=== PATIENT | female | born 1960 | race Caucasian/White ===

== ENCOUNTER 2017-02-28 15:33 | Emergency (ER) | payer MEDICARE, OTHER ==
[2017-02-28] MEDS ORDERED: SODIUM CHLORIDE 0.9% 1,000 ML IV ONE (16:17)
[2017-02-28] MEDS ORDERED: MORPHINE SULFATE 4 MG/ML SYRINGE IVP STA (16:17)
[2017-02-28] MEDS ORDERED: ONDANSETRON 4 MG/2 ML VIAL IVP STA (16:17)
[2017-02-28 16:34] LABS: Basophils # (A) 0.1 k/uL (0-0.2); Basophils % (A) 1 %; CH 31.1; CHCM 35.1; Eosinophils # (A) 0.2 k/uL (0-0.7); Eosinophils % (A) 3 %; HCT 40.5 % (34.0-46.0); HDW 2.92; HGB 14.2 gm/dL (11.4-16.0); Luc # (Auto) 0.16; Luc % (Auto) 2; Lymphocytes # (A) 1.9 k/uL (1.0-4.8); Lymphocytes % (A) 25 %; MCH 31.2 pg (25.0-35.0); MCV 89.1 fL (80.0-100.0); Mean Platelet Volume 7.1; Monocytes # (A) 0.3 k/uL (0-1.0); Monocytes % (A) 5 %; Neutrophils % (A) 65 %; RBC 4.55 m/uL (3.80-5.40); RDW 13.6 % (11.5-15.5); WBC 7.7 k/uL (3.8-10.6); WBC (Perox) 7.71
[2017-02-28 16:48] LABS: ALT 22 U/L (9-52); AST 17 U/L (14-36); Alkaline Phosphatase 158 U/L (38-126); Anion Gap 10 mmol/L; Blood Urea Nitrogen 20 mg/dL (7-17); Calcium 9.2 mg/dL (8.4-10.2); Carbon Dioxide 24 mmol/L (22-30); Chloride 101 mmol/L (98-107); Glucose 343 mg/dL (74-99); Non-African American GFR(MDRD) >60 (>60 ml/min/1.73 sqM); Potassium 4.8 mmol/L (3.5-5.1); Sodium 135 mmol/L (137-145); Total Bilirubin 0.7 mg/dL (0.2-1.3); Total Protein 7.7 g/dL (6.3-8.2)
[2017-02-28 17:27] LABS: Appearance,Urine Cloudy (Clear); Bacteria,Urine Occasional /hpf; Bilirubin,Urine Negative (Negative); Glucose,Urine (UA) 4+ (Negative); Ketones,Urine Negative (Negative); Leukocyte Esterase,Urine Large (Negative); Nitrite,Urine Negative (Negative); PH, Urine 5.5 (5.0-8.0); Particle Count 3175; Protein,Urine Trace (Negative); RBC,Urine 9 /hpf (0-5); Specific Gravity,Urine 1.017 (1.001-1.035); Squamous Epithelial Cell,Urine 4 /hpf (0-4); UA Billing (MACRO vs. MICRO) MICRO; Urobilinogen,Urine <2.0 mg/dL (<2.0); WBC,Urine 21 /hpf (0-5)
--- NOTE | 2017-02-28 17:53 | CT ---
EXAMINATION TYPE: CT abdomen pelvis wo con DATE OF EXAM: 02/28/2017 COMPARISON: 06/12/2014 INDICATION: Patient complains of left flank pain. DLP: 1540.8 mGycm, Automated exposure control for dose reduction was used. CONTRAST: 0 mL of Omnipaque 300. Study performed without Oral Contrast TECHNIQUE: Axial images were obtained from above the diaphragm to the pubic rami in the axial plane a t 5 mm thick sections. Reconstructed images are reviewed on the computer in the coronal plane. FINDINGS: Limited CT sections are obtained the lung bases. Some minimal compressive atelectasis in the posteri or lateral right lung base is present.. CT ABDOMEN: Liver: Normal Spleen: Normal Pancreas: Normal Adrenal glands: Left adrenal gland is slightly prominent at 1.6 cm. Right adrenal gland appears withi n normal limits. Gallbladder: Surgically absent. Kidneys: No masses are evident. No hydronephrosis is present. No cysts are present. Perinephric st randing is present to mild degree bilaterally. Aorta: Normal Inferior vena cava: Normal. CT PELVIS: Loops of bowel within the abdomen and pelvis are normal. Appendix: Normal as visualized. Urinary bladder: Decompressed with limited evaluation. Genitourinary structures: Vaginal cuff region may has some minimal fullness. The uterus is not well v isualized. This could be a partial hysterectomy. Adnexal regions are unremarkable Osseous structures: No suspicious lytic or sclerotic lesions. IMPRESSIONS: 1. Mild perinephric stranding of uncertain etiology. Consider infection. 2. Mild posterior lateral compressive atelectasis right lung base. 3. Fullness of the left adrenal gland. 4. Mild diverticulosis without acute diverticulitis.
--- NOTE | 2017-02-28 17:57 | ED ---
Abdominal Pain HPI - General Chief Complaint: Abdominal Pain Stated Complaint: left abdominal and flank pain Source: patient Mode of arrival: ambulatory Limitations: no limitations - History of Present Illness Initial Comments: 56-year-old female with past medical history of asthma, COPD, DM, fibromyalgia, and IBS any for evaluation of left lower quadrant abdominal pain. She states that the pain started last night and describes it as a sharpness that radiates into her left lower back. She states that there is a gradual onset of pain and that is currently at a 9 out of 10. There is associated nausea without vomiting diarrhea constipation vaginal discharge hematuria dysuria. She tried taking an Aleve for symptom resolution and had no improvement. Nothing else seems to make her pain worse. She has never had these symptoms before. Previous abdominal surgeries include a total hysterectomy and a cholecystectomy. She has no history of kidney stones. - Related Data Home Medications Medication Instructions Recorded Confirmed Insulin Aspart Protam & Aspart 60 unit SQ BID 02/28/17 02/28/17 [NovoLOG MIX 70-30 Flexpen] Levothyroxine Sodium [Synthroid] 100 mcg PO DAILY 02/28/17 02/28/17 Lovastatin [Mevacor] 40 mg PO HS 02/28/17 02/28/17 traMADol HCL [Ultram] 50 mg PO Q12H PRN 02/28/17 02/28/17 Previous Rx's Medication Instructions Recorded HYDROcodone/APAP 5-325MG [[place] 1 - 2 tab PO Q6HR PRN #14 tab 02/28/17 5-325] Sulfamethox-Tmp 800-160Mg [Bactrim 1 tab PO Q12HR #20 tab 02/28/17 DS 800-160 mg] Allergies Allergy/AdvReac Type Severity Reaction Status Date / Time aspirin [From Percodan] Allergy Rash/Hives Verified 02/28/17 15:38 diphenhydramine Allergy Rash/Hives Verified 02/28/17 15:38 [From Benadryl] oxycodone [From Percodan] Allergy Rash/Hives Verified 02/28/17 15:38 prednisone AdvReac Unknown Verified 02/28/17 15:39 Review of Systems ROS Statement: Those systems with pertinent positive or pertinent negative responses have been documented in the HPI. ROS Other: All systems not noted in ROS Statement are negative. Constitutional: Denies: fever, chills Eyes: Denies: eye pain, eye discharge ENT: Denies: ear pain, throat pain Respiratory: Denies: cough, dyspnea Cardiovascular: Denies: chest pain, palpitations Endocrine: Denies: fatigue, polydipsia, polyuria Gastrointestinal: Reports: abdominal pain, nausea. Denies: vomiting Genitourinary: Denies: urgency, dysuria Musculoskeletal: Reports: back pain. Denies: arthralgia Skin: Denies: rash, lesions Neurological: Denies: headache, weakness Psychiatric: Denies: anxiety, depression Hematological/Lymphatic: Denies: easy bleeding, easy bruising Past Medical History Past Medical History: Asthma, COPD, Diabetes Mellitus, Fibromyalgia Additional Past Medical History / Comment(s): IBS History of Any Multi-Drug Resistant Organisms: None Reported Past Surgical History: Hysterectomy, Joint Replacement, Tonsillectomy Additional Past Surgical History / Comment(s): carpal tunnel, bilateral knees Past Psychological History: No Psychological Hx Reported Smoking Status: Former smoker Past Alcohol Use History: None Reported Past Drug Use History: None Reported General Exam Limitations: no limitations General appearance: alert, in no apparent distress Head exam: Present: atraumatic, normocephalic, normal inspection Eye exam: Present: normal appearance, PERRL, EOMI. Absent: scleral icterus, conjunctival injection, periorbital swelling ENT exam: Present: normal exam, mucous membranes moist Neck exam: Present: normal inspection. Absent: tenderness, meningismus, lymphadenopathy Respiratory exam: Present: normal lung sounds bilaterally. Absent: respiratory distress, wheezes, rales, rhonchi, stridor Cardiovascular Exam: Present: regular rate, normal rhythm, normal heart sounds. Absent: systolic murmur, diastolic murmur, rubs, gallop, clicks GI/Abdominal exam: Present: soft, tenderness. Absent: distended, guarding, rebound, rigid Rectal exam: Present: deferred Extremities exam: Present: normal inspection, full ROM, normal capillary refill. Absent: tenderness, pedal edema, joint swelling, calf tenderness Back exam: Present: full ROM, tenderness. Absent: CVA tenderness (R), CVA tenderness (L) Neurological exam: Present: alert, oriented X3, CN II-XII intact Psychiatric exam: Present: normal affect, normal mood Skin exam: Present: warm, dry, intact, normal color. Absent: rash Course Vital Signs 02/28/17 02/28/17 15:35 18:56 Temperature 97.7 F 97.8 F Pulse Rate 90 87 Respiratory 20 17 Rate Blood Pressure 179/98 157/87 O2 Sat by Pulse 96 96 Oximetry Medical Decision Making - Medical Decision Making 56-year-old female presenting for evaluation of left lower quadrant abdominal pain with some radiation to her left flank. She states this started last night and is reached 9 out of 10 without any relief with Aleve. She also has associated nausea. On physical examination she is tender to palpation on the left lower quadrant and in the left flank. Labs are significant for hyperglycemia and a urinary tract infection. The CT renal showed perinephric stranding around the kidney and given urinary tract infection she is likely having a pyelonephritis. She was given her first dose of antibiotic here in the ED and informed of all results. On physical examination she had improvement in her pain and she was informed that she would be discharged with instructions to follow-up with her primary care physician but to return to this facility if her symptoms should worsen or persist. The patient acknowledged an understanding of this information and agreed with this plan of care. - Lab Data Result diagrams: 02/28/17 15:54 02/28/17 15:54 Lab Results 02/28/17 02/28/17 02/28/17 Range/Units 15:54 15:54 15:54 WBC 7.7 (3.8-10.6) k/uL RBC 4.55 (3.80-5.40) m/uL Hgb 14.2 (11.4-16.0) gm/dL Hct 40.5 (34.0-46.0) % MCV 89.1 (80.0-100.0) fL MCH 31.2 (25.0-35.0) pg MCHC 35.0 (31.0-37.0) g/dL RDW 13.6 (11.5-15.5) % Plt Count 261 (150-450) k/uL Neutrophils % 65 % Lymphocytes % 25 % Monocytes % 5 % Eosinophils % 3 % Basophils % 1 % Neutrophils # 5.0 (1.3-7.7) k/uL Lymphocytes # 1.9 (1.0-4.8) k/uL Monocytes # 0.3 (0-1.0) k/uL Eosinophils # 0.2 (0-0.7) k/uL Basophils # 0.1 (0-0.2) k/uL Sodium 135 L (137-145) mmol/L Potassium 4.8 (3.5-5.1) mmol/L Chloride 101 (98-107) mmol/L Carbon Dioxide 24 (22-30) mmol/L Anion Gap 10 mmol/L BUN 20 H (7-17) mg/dL Creatinine 0.86 (0.52-1.04) mg/dL Est GFR (MDRD) Af Amer >60 (>60 ml/min/1.73 sqM) Est GFR (MDRD) Non-Af >60 (>60 ml/min/1.73 sqM) Glucose 343 H (74-99) mg/dL Calcium 9.2 (8.4-10.2) mg/dL Total Bilirubin 0.7 (0.2-1.3) mg/dL AST 17 (14-36) U/L ALT 22 (9-52) U/L Alkaline Phosphatase 158 H (38-126) U/L Total Protein 7.7 (6.3-8.2) g/dL Albumin 3.9 (3.5-5.0) g/dL Lipase 183 (23-300) U/L Urine Color Light Yellow Urine Appearance Cloudy H (Clear) Urine pH 5.5 (5.0-8.0) Ur Specific [place] 1.017 (1.001-1.035) Urine Protein Trace H (Negative) Urine Glucose (UA) 4+ H (Negative) Urine Ketones Negative (Negative) Urine Blood Trace H (Negative) Urine Nitrite Negative (Negative) Urine Bilirubin Negative (Negative) Urine Urobilinogen <2.0 (<2.0) mg/dL Ur Leukocyte Esterase Large H (Negative) Urine RBC 9 H (0-5) /hpf Urine WBC 21 H (0-5) /hpf Ur Squamous Epith Cells 4 (0-4) /hpf Urine Bacteria Occasional H (None) /hpf Disposition Clinical Impression: Pyelonephritis, Hyperglycemia Disposition: HOME SELF-CARE Condition: Stable Instructions: Kidney Infection (ED), Flank Pain (ED) Additional Instructions: Please use medication as discussed. Please follow up with family doctor if symptoms have not improved over the next two days. Please return to the emergency room if your symptoms increase or worsen or for any other concerns. Prescriptions: HYDROcodone/APAP 5-325MG [[place] 5-325] 1 - 2 tab PO Q6HR PRN #14 tab PRN Reason: Analgesia Sulfamethox-Tmp 800-160Mg [Bactrim DS 800-160 mg] 1 tab PO Q12HR #20 tab Referrals: Alejandro Torres DO [Primary Care Provider] - 1-2 days Time of Disposition: 18:35
[2017-02-28] MEDS ORDERED: SULFAMETHOX-TMP 800-160MG 1 EACH TAB PO STA (18:03)
[2017-02-28 18:57] VITALS: BP 157/87; PULSE 87; RESP 17; TEMP 97.8
== END 2017-02-28 18:56 | disposition home or self-care (01) ==
LOC: EC 15:33
DX: N12 Tubulo-interstitial nephritis, not specified as acute or chronic (principal); E11.65 Type 2 diabetes mellitus with hyperglycemia; Z87.891 Personal history of nicotine dependence; Z79.4 Long term (current) use of insulin; Z79.899 Other long term (current) drug therapy; Z88.6 Allergy status to analgesic agent; Z88.8 Allergy status to other drugs, medicaments and biological substances
CPT/HCPCS: 36415; 80053; 83690; 85025; 81001; 74176; 99284; 96374; 96375; 96361; J2270; J2405

== ENCOUNTER 2017-03-03 13:49 | Emergency (ER) | payer MEDICARE ==
[2017-03-03] MEDS ORDERED: SODIUM CHLORIDE 0.9% 1,000 ML IV ONE (15:59)
[2017-03-03] MEDS ORDERED: MORPHINE SULFATE 4 MG/ML SYRINGE IVP STA (16:00)
--- NOTE | 2017-03-03 16:03 | ED ---
Abdominal Pain HPI - General Chief Complaint: Abdominal Pain Stated Complaint: kidney infection/pain-revisit Time Seen by Provider: 03/03/17 15:18 Source: patient, RN notes reviewed Mode of arrival: ambulatory Limitations: no limitations - History of Present Illness Initial Comments: Patient is 56 female presents emergency room for evaluation of left-sided flank pain and abdominal pain. Patient states she was here on Monday for the same issue. Patient states she was told she had a urinary tract infection and possible kidney infection. She states she was sent home with Bactrim and [place]. Patient states she has been taking Bactrim and feels like it is not helping. Patient states she's having worse pain today than she did on Monday. Patient states been taking [place] with no relief of symptoms. Patient states a CT was performed last time she was here and it did show that her left kidney was inflamed. Patient denies history of kidney stones. Patient denies any pain or burning during urination. Patient denies fevers or chills. Patient denies chest pain or shortness of breath. Patient states she is nauseous but denies any vomiting. - Related Data Home Medications Medication Instructions Recorded Confirmed Insulin Aspart Protam & Aspart 60 unit SQ BID 02/28/17 03/03/17 [NovoLOG MIX 70-30 Flexpen] Levothyroxine Sodium [Synthroid] 100 mcg PO DAILY 02/28/17 03/03/17 Lovastatin [Mevacor] 40 mg PO HS 02/28/17 03/03/17 HYDROcodone/APAP 5-325MG [[place] 1 tab PO Q6HR PRN 03/03/17 03/03/17 5-325] HYDROcodone/APAP 5-325MG [[place] 2 tab PO Q6HR PRN 03/03/17 03/03/17 5-325] Previous Rx's Medication Instructions Recorded Sulfamethox-Tmp 800-160Mg [Bactrim 1 tab PO Q12HR #20 tab 02/28/17 DS 800-160 mg] Acetaminophen with Codeine 1 tab PO Q6HR PRN #12 tab 03/03/17 [Tylenol w/codeine #3] Allergies Allergy/AdvReac Type Severity Reaction Status Date / Time diphenhydramine Allergy Rash/Hives Verified 03/03/17 15:58 [From Benadryl] oxycodone [From Percodan] Allergy Rash/Hives Verified 03/03/17 15:58 prednisone AdvReac Increased Verified 03/03/17 15:58 Blood Sugar Review of Systems ROS Statement: Those systems with pertinent positive or pertinent negative responses have been documented in the HPI. ROS Other: All systems not noted in ROS Statement are negative. Past Medical History Past Medical History: Asthma, COPD, Diabetes Mellitus, Fibromyalgia Additional Past Medical History / Comment(s): IBS History of Any Multi-Drug Resistant Organisms: None Reported Past Surgical History: Hysterectomy, Joint Replacement, Tonsillectomy Additional Past Surgical History / Comment(s): carpal tunnel, bilateral knees Past Psychological History: No Psychological Hx Reported Smoking Status: Former smoker Past Alcohol Use History: None Reported Past Drug Use History: None Reported General Exam - General Exam Comments Initial Comments: sitting in exam room, no acute distress. Limitations: no limitations General appearance: alert, in no apparent distress Head exam: Present: atraumatic, normocephalic, normal inspection Eye exam: Present: normal appearance ENT exam: Present: normal exam Neck exam: Present: normal inspection Respiratory exam: Present: normal lung sounds bilaterally. Absent: respiratory distress Cardiovascular Exam: Present: regular rate, normal rhythm, normal heart sounds GI/Abdominal exam: Present: soft, normal bowel sounds. Absent: distended, tenderness, guarding, rebound, rigid Extremities exam: Present: normal inspection Back exam: Present: normal inspection. Absent: CVA tenderness (R), CVA tenderness (L) Neurological exam: Present: alert, oriented X3, CN II-XII intact, normal gait Psychiatric exam: Present: normal affect, normal mood Skin exam: Present: warm, dry, intact, normal color. Absent: rash Course Vital Signs 03/03/17 03/03/17 14:11 17:50 Temperature 97.8 F 98.0 F Pulse Rate 101 H 80 Respiratory 20 16 Rate Blood Pressure 178/81 149/78 O2 Sat by Pulse 96 98 Oximetry Medical Decision Making - Medical Decision Making patient is a 56-year-old female presents emergency room for evaluation of abdominal pain and flank pain. As compared to last visit. Urinalysis improved from last visit. Advised patient to continue taking Bactrim. Patient states she understands everything that was discussed with her. Return parameters discussed. Case discussed Dr. Jaimes. - Lab Data Result diagrams: 03/03/17 15:53 03/03/17 15:53 Lab Results 03/03/17 03/03/17 03/03/17 Range/Units 15:53 15:53 15:53 WBC 7.0 (3.8-10.6) k/uL RBC 4.26 (3.80-5.40) m/uL Hgb 13.3 (11.4-16.0) gm/dL Hct 39.4 (34.0-46.0) % MCV 92.7 (80.0-100.0) fL MCH 31.3 (25.0-35.0) pg MCHC 33.8 (31.0-37.0) g/dL RDW 14.1 (11.5-15.5) % Plt Count 254 (150-450) k/uL Neutrophils % 62 % Lymphocytes % 26 % Monocytes % 6 % Eosinophils % 3 % Basophils % 1 % Neutrophils # 4.4 (1.3-7.7) k/uL Lymphocytes # 1.8 (1.0-4.8) k/uL Monocytes # 0.4 (0-1.0) k/uL Eosinophils # 0.2 (0-0.7) k/uL Basophils # 0.1 (0-0.2) k/uL Sodium 138 (137-145) mmol/L Potassium 4.8 (3.5-5.1) mmol/L Chloride 104 (98-107) mmol/L Carbon Dioxide 26 (22-30) mmol/L Anion Gap 8 mmol/L BUN 19 H (7-17) mg/dL Creatinine 1.00 (0.52-1.04) mg/dL Est GFR (MDRD) Af Amer >60 (>60 ml/min/1.73 sqM) Est GFR (MDRD) Non-Af 58 (>60 ml/min/1.73 sqM) Glucose 245 H (74-99) mg/dL Calcium 9.4 (8.4-10.2) mg/dL Total Bilirubin 0.3 (0.2-1.3) mg/dL AST 17 (14-36) U/L ALT 26 (9-52) U/L Alkaline Phosphatase 131 H (38-126) U/L Total Protein 7.1 (6.3-8.2) g/dL Albumin 3.8 (3.5-5.0) g/dL Urine Color Light Yellow Urine Appearance Cloudy H (Clear) Urine pH 6.0 (5.0-8.0) Ur Specific [place] 1.014 (1.001-1.035) Urine Protein Trace H (Negative) Urine Glucose (UA) 4+ H (Negative) Urine Ketones Negative (Negative) Urine Blood Negative (Negative) Urine Nitrite Negative (Negative) Urine Bilirubin Negative (Negative) Urine Urobilinogen <2.0 (<2.0) mg/dL Ur Leukocyte Esterase Large H (Negative) Urine RBC 3 (0-5) /hpf Urine WBC 12 H (0-5) /hpf Ur Squamous Epith Cells 11 H (0-4) /hpf Urine Bacteria Many H (None) /hpf Urine Mucus Rare H (None) /hpf Urine Yeast (Budding) Occasional H (None) /hpf Disposition Clinical Impression: Urinary tract infection Disposition: HOME SELF-CARE Condition: Good Instructions: Urinary Tract Infection in Women (ED) Additional Instructions: Continue taking antibiotics as directed. Drink plenty of water. Take ibuprofen as needed for pain. Take Tylenol 3 as needed for severe pain. Please follow up with primary care provider in 1-2 days. If any new symptom arises or symptoms worsen, return to ER as soon as possible. Prescriptions: Acetaminophen with Codeine [Tylenol w/codeine #3] 1 tab PO Q6HR PRN #12 tab PRN Reason: Pain Referrals: Alejandro Torres DO [Primary Care Provider] - 1-2 days Time of Disposition: 17:35
[2017-03-03 16:13] LABS: Basophils # (A) 0.1 k/uL (0-0.2); Basophils % (A) 1 %; CH 31.3; Eosinophils # (A) 0.2 k/uL (0-0.7); Eosinophils % (A) 3 %; HCT 39.4 % (34.0-46.0); HDW 2.69; HGB 13.3 gm/dL (11.4-16.0); Luc # (Auto) 0.17; Luc % (Auto) 3; Lymphocytes # (A) 1.8 k/uL (1.0-4.8); Lymphocytes % (A) 26 %; MCH 31.3 pg (25.0-35.0); MCHC 33.8 g/dL (31.0-37.0); MCV 92.7 fL (80.0-100.0); Mean Platelet Volume 7.2; Monocytes # (A) 0.4 k/uL (0-1.0); Monocytes % (A) 6 %; Neutrophils # (A) 4.4 k/uL (1.3-7.7); Neutrophils % (A) 62 %; RBC 4.26 m/uL (3.80-5.40); RDW 14.1 % (11.5-15.5); WBC (Perox) 6.96
[2017-03-03 16:26] LABS: ALT 26 U/L (9-52); AST 17 U/L (14-36); Alkaline Phosphatase 131 U/L (38-126); Anion Gap 8 mmol/L; Blood Urea Nitrogen 19 mg/dL (7-17); Calcium 9.4 mg/dL (8.4-10.2); Carbon Dioxide 26 mmol/L (22-30); Chloride 104 mmol/L (98-107); Glucose 245 mg/dL (74-99); Non-African American GFR(MDRD) 58 (>60 ml/min/1.73 sqM); Potassium 4.8 mmol/L (3.5-5.1); Sodium 138 mmol/L (137-145); Total Bilirubin 0.3 mg/dL (0.2-1.3); Total Protein 7.1 g/dL (6.3-8.2)
[2017-03-03 16:30] LABS: Appearance,Urine Cloudy (Clear); Bacteria,Urine Many /hpf; Bilirubin,Urine Negative (Negative); Glucose,Urine (UA) 4+ (Negative); Ketones,Urine Negative (Negative); Leukocyte Esterase,Urine Large (Negative); Mucus,Urine Rare /hpf; Nitrite,Urine Negative (Negative); Particle Count 4070; Protein,Urine Trace (Negative); RBC,Urine 3 /hpf (0-5); Specific Gravity,Urine 1.014 (1.001-1.035); Squamous Epithelial Cell,Urine 11 /hpf (0-4); UA Billing (MACRO vs. MICRO) MICRO; Urobilinogen,Urine <2.0 mg/dL (<2.0); WBC,Urine 12 /hpf (0-5)
[2017-03-03] MEDS ORDERED: KETOROLAC 30 MG/ML 1 ML VIAL IVP STA (17:04)
[2017-03-03 17:51] VITALS: BP 149/78; PULSE 80; RESP 16; TEMP 98
== END 2017-03-03 17:52 | disposition home or self-care (01) ==
LOC: EC 13:49
DX: N39.0 Urinary tract infection, site not specified (principal); E11.9 Type 2 diabetes mellitus without complications; Z87.891 Personal history of nicotine dependence; Z79.4 Long term (current) use of insulin; Z79.899 Other long term (current) drug therapy; Z88.5 Allergy status to narcotic agent; Z88.8 Allergy status to other drugs, medicaments and biological substances
CPT/HCPCS: 36415; 80053; 85025; 81001; 99284; 96374; 96375; 96361; J2270; J1885

== ENCOUNTER → 2017-03-20 | Outpatient (CLI) | payer MEDICARE ==
[2017-03-21 15:12] LABS: Alternaria alternata IgE <0.35 kU/L (<0.35); Asperg. fumagatus IgE <0.35 kU/L (<0.35); Asperg. fumagatus IgE Class CLASS 0; Birch(Com.Silvr) IgE Class CLASS 0; Cat Epith & Dander IgE <0.35 kU/L (<0.35); Cat Epith & Dander IgE Class CLASS 0; Clad herbarum IgE <0.35 kU/L (<0.35); Clad herbarum IgE Class CLASS 0; Common Ragweed IgE Class CLASS 0; Dermato. Pteronyssinus Class CLASS 0; Dermato. Pteronyssinus IgE <0.35 kU/L (<0.35); Dermato. farinae IgE <0.35 kU/L (<0.35); Dermato. farinae IgE Class CLASS 0; IgE (Allergen) 3.9 IU/mL (<114.0); Maple (Box Elder) IgE <0.35 kU/L (<0.35); Maple (Box Elder) IgE Class CLASS 0; Mountain Cedar IgE <0.35 kU/L (<0.35); Mountain Cedar IgE Class CLASS 0; Mouse Urine IgE Class CLASS 0; Mouse Urine Proteins,IgE <0.35 kU/L (<0.35); Mulberry IgE Class CLASS 0; Nettle IgE <0.35 kU/L (<0.35); Nettle IgE Class CLASS 0; Oak IgE <0.35 kU/L (<0.35); Penicillium notatum IgE Class CLASS 0; Rough Marshelder IgE <0.35 kU/L (<0.35); Rough Marshelder IgE Class CLASS 0; Timothy Grass IgE <0.35 kU/L (<0.35); Timothy Grass IgE Class CLASS 0; White Ash IgE Class CLASS 0
[2017-03-28 18:28] LABS: Alternaria tenius IgG 5.4 mcg/mL (< 13.6); Saccaharomospora viridis Not detected (Not detected); Saccaharopoly. rectivirgula Not detected (Not detected)
== END | disposition home or self-care (01) ==
LOC: LABWHC1 10:45
PROVIDERS: ATTEND Internal Medicine Pulmonary Disease
DX: J45.909 Unspecified asthma, uncomplicated (principal); R06.02 Shortness of breath
CPT/HCPCS: 36415; 82103; 82104; 82785; 86001; 86003; 86606; 86609

== ENCOUNTER 2017-05-17 17:48 | Observation (INO) | payer MEDICARE ==
[2017-05-17] MEDS ORDERED: SODIUM CHLORIDE 0.9% 1,000 ML IV STA (18:40)
--- NOTE | 2017-05-17 19:07 | XR ---
EXAMINATION TYPE: XR chest 2V DATE OF EXAM: 05/17/2017 COMPARISON: 08/12/2009 HISTORY: Dizziness TECHNIQUE: Frontal and lateral views of the chest are obtained. FINDINGS: There is no heart failure nor confluent pneumonic infiltrate. There are no hilar masses. C ostophrenic angles are clear. There is spurring in the thoracic spine. IMPRESSION: No active cardiopulmonary disease. No change.
[2017-05-17 19:12] LABS: Basophils # (A) 0.1 k/uL (0-0.2); Basophils % (A) 1 %; CH 30.6; CHCM 33.8; Eosinophils # (A) 0.2 k/uL (0-0.7); Eosinophils % (A) 3 %; HCT 40.8 % (34.0-46.0); HDW 2.79; HGB 14.2 gm/dL (11.4-16.0); Luc # (Auto) 0.22; Luc % (Auto) 3; Lymphocytes # (A) 2.3 k/uL (1.0-4.8); Lymphocytes % (A) 29 %; MCH 31.8 pg (25.0-35.0); MCHC 34.9 g/dL (31.0-37.0); MCV 91.2 fL (80.0-100.0); Mean Platelet Volume 7.6; Monocytes # (A) 0.4 k/uL (0-1.0); Monocytes % (A) 6 %; Neutrophils # (A) 4.6 k/uL (1.3-7.7); Neutrophils % (A) 59 %; RBC 4.48 m/uL (3.80-5.40); RDW 13.1 % (11.5-15.5); WBC 7.8 k/uL (3.8-10.6); WBC (Perox) 7.46
[2017-05-17 19:15] LABS: Amorphous Sediment,Urine Rare /hpf; Appearance,Urine Clear (Clear); Bacteria,Urine Moderate /hpf; Bilirubin,Urine Negative (Negative); Glucose,Urine (UA) 4+ (Negative); Ketones,Urine Negative (Negative); Leukocyte Esterase,Urine Moderate (Negative); Nitrite,Urine Negative (Negative); Particle Count 1786; Protein,Urine Negative (Negative); RBC,Urine 2 /hpf (0-5); Specific Gravity,Urine 1.017 (1.001-1.035); Squamous Epithelial Cell,Urine 4 /hpf (0-4); UA Billing (MACRO vs. MICRO) MICRO; Urobilinogen,Urine <2.0 mg/dL (<2.0); WBC,Urine 31 /hpf (0-5)
[2017-05-17 19:19] LABS: ALT 34 U/L (9-52); AST 18 U/L (14-36); Alkaline Phosphatase 146 U/L (38-126); Anion Gap 13 mmol/L; Blood Urea Nitrogen 22 mg/dL (7-17); Carbon Dioxide 25 mmol/L (22-30); Chloride 92 mmol/L (98-107); Magnesium 1.7 mg/dL (1.6-2.3); Non-African American GFR(MDRD) >60 (>60 ml/min/1.73 sqM); Potassium 4.5 mmol/L (3.5-5.1); Sodium 130 mmol/L (137-145); Total Bilirubin 0.4 mg/dL (0.2-1.3); Total Protein 7.3 g/dL (6.3-8.2)
[2017-05-17 19:23] LABS: Glucose 615 mg/dL (74-99)
[2017-05-17] MEDS ORDERED: SODIUM CHLORIDE 0.9% 1,000 ML IV ONE (19:49)
[2017-05-17] MEDS ORDERED: INSULIN REGULAR 100 UNIT/ML VIAL IV ONE (20:04)
[2017-05-17] MEDS: SODIUM CHLORIDE 0.9% 1,000 ML IV SCH (20:26)
[2017-05-17] MEDS ORDERED: ONDANSETRON 4 MG/2 ML VIAL IVP PRN (20:27)
[2017-05-17] MEDS ORDERED: NALOXONE 0.4 MG/ML 1 ML VIAL IV PRN (20:27)
[2017-05-17] MEDS ORDERED: ACETAMINOPHEN TAB 325 MG TAB PO PRN (20:27)
--- NOTE | 2017-05-17 20:47 | ED ---
General Adult HPI - General Chief complaint: Dizziness Stated complaint: Heart racing-chest pain Time Seen by Provider: 05/17/17 18:02 Source: patient, RN notes reviewed Mode of arrival: ambulatory Limitations: no limitations - History of Present Illness Initial comments: 57-year-old female with history of diabetes, and asthma COPD presents with chief complaint of palpitations and lightheadedness. Patient denies any symptoms of vertigo. States her palpitations came at rest. She is not currently experiencing these symptoms. Denies any chest pain. Denies nausea vomiting states she did have some diarrhea but has a history of IBS this is not abnormal. Also complains of dysuria. Denies shortness of breath. Palpitations are described as a racing heart. - Related Data Home Medications Medication Instructions Recorded Confirmed Insulin Aspart Protam & Aspart 60 unit SQ BID 02/28/17 05/17/17 [NovoLOG MIX 70-30 Flexpen] Levothyroxine Sodium [Synthroid] 100 mcg PO QAM 02/28/17 05/17/17 Lovastatin [Mevacor] 40 mg PO HS 02/28/17 05/17/17 Albuterol Inhaler [Ventolin Hfa 1 - 2 puff INHALATION RT-QID PRN 05/17/17 Inhaler] Montelukast [Singulair] 10 mg PO HS 05/17/17 05/17/17 traMADol HCL [Ultram] 50 mg PO BID PRN 05/17/17 05/17/17 Allergies Allergy/AdvReac Type Severity Reaction Status Date / Time adhesive tape Allergy Rash/Hives Verified 05/17/17 18:54 diphenhydramine Allergy Rash/Hives Verified 05/17/17 18:09 [From Benadryl] latex Allergy Rash/Hives Verified 05/17/17 18:54 oxycodone [From Percodan] AdvReac Altered Verified 05/17/17 18:54 Mental Status prednisone AdvReac Increased Verified 05/17/17 18:09 Blood Sugar Review of Systems ROS Statement: Those systems with pertinent positive or pertinent negative responses have been documented in the HPI. ROS Other: All systems not noted in ROS Statement are negative. Past Medical History Past Medical History: Asthma, COPD, Diabetes Mellitus, Fibromyalgia Additional Past Medical History / Comment(s): IBS History of Any Multi-Drug Resistant Organisms: None Reported Past Surgical History: Hysterectomy, Joint Replacement, Tonsillectomy Additional Past Surgical History / Comment(s): carpal tunnel, bilateral knees Past Psychological History: No Psychological Hx Reported Smoking Status: Former smoker Past Alcohol Use History: None Reported Past Drug Use History: None Reported General Exam Limitations: no limitations General appearance: alert, in no apparent distress Head exam: Present: atraumatic, normocephalic Eye exam: Present: normal appearance, PERRL. Absent: scleral icterus ENT exam: Present: normal exam, mucous membranes dry Neck exam: Present: normal inspection. Absent: tenderness, meningismus Respiratory exam: Present: normal lung sounds bilaterally. Absent: respiratory distress, wheezes Cardiovascular Exam: Present: regular rate, normal rhythm GI/Abdominal exam: Present: soft. Absent: distended, tenderness Extremities exam: Present: normal inspection, normal capillary refill. Absent: pedal edema Back exam: Present: normal inspection. Absent: CVA tenderness (R), CVA tenderness (L) Neurological exam: Present: alert, oriented X3, CN II-XII intact. Absent: motor sensory deficit Psychiatric exam: Present: normal affect, normal mood Skin exam: Present: warm, dry. Absent: cyanosis, diaphoretic Course Vital Signs 05/17/17 05/17/17 18:09 18:24 Temperature 98.0 F Pulse Rate 100 Pulse Rate [ 95 Mycologist ] Respiratory 18 Rate Blood Pressure 187/72 O2 Sat by Pulse 96 Oximetry - Reevaluation(s) Reevaluation #1: 05/17/17 20:44 Patient is to chest pain or palpitations wound emergency department. EKG Findings - EKG Comments: EKG Findings:: EKG shows normal sinus rhythm with a ventricular rate 97, P1 56, QRS duration 82, QTC 459, no ST segment elevation or depression. Medical Decision Making - Medical Decision Making 57-year-old female presenting with lightheadedness and palpitations. Patient also complains of dysuria and is found to have a urinary tract infection with white blood cell count 31. Laboratory studies reveal a glucose of 615. Patient does admit to not checking her glucose on a regular basis. Mild lactic acidosis consistent with dehydration, hyponatremia at 1:30 which is likely pseudohyponatremia secondary to glucose. EKG is nonischemic, chest x-ray shows no acute findings. Patient is given IV hydration and IV insulin emergency department. She will be admitted for further IV hydration, close glucose monitoring, and telemetry given her palpitations. Diagnosis: Hyperglycemia, pseudohyponatremia, lactic acidosis, UTI, palpitations. - Lab Data Result diagrams: 05/17/17 18:24 05/17/17 18:24 Lab Results 05/17/17 05/17/17 05/17/17 Range/Units 18:24 18:24 18:24 WBC 7.8 (3.8-10.6) k/uL RBC 4.48 (3.80-5.40) m/uL Hgb 14.2 (11.4-16.0) gm/dL Hct 40.8 (34.0-46.0) % MCV 91.2 (80.0-100.0) fL MCH 31.8 (25.0-35.0) pg MCHC 34.9 (31.0-37.0) g/dL RDW 13.1 (11.5-15.5) % Plt Count 266 (150-450) k/uL Neutrophils % 59 % Lymphocytes % 29 % Monocytes % 6 % Eosinophils % 3 % Basophils % 1 % Neutrophils # 4.6 (1.3-7.7) k/uL Lymphocytes # 2.3 (1.0-4.8) k/uL Monocytes # 0.4 (0-1.0) k/uL Eosinophils # 0.2 (0-0.7) k/uL Basophils # 0.1 (0-0.2) k/uL Sodium 130 L (137-145) mmol/L Potassium 4.5 (3.5-5.1) mmol/L Chloride 92 L (98-107) mmol/L Carbon Dioxide 25 (22-30) mmol/L Anion Gap 13 mmol/L BUN 22 H (7-17) mg/dL Creatinine 0.89 (0.52-1.04) mg/dL Est GFR (MDRD) Af Amer >60 (>60 ml/min/1.73 sqM) Est GFR (MDRD) Non-Af >60 (>60 ml/min/1.73 sqM) Glucose 615 H* (74-99) mg/dL Plasma Lactic Acid [place] (0.7-2.0) mmol/L Calcium 9.0 (8.4-10.2) mg/dL Magnesium 1.7 (1.6-2.3) mg/dL Total Bilirubin 0.4 (0.2-1.3) mg/dL AST 18 (14-36) U/L ALT 34 (9-52) U/L Alkaline Phosphatase 146 H (38-126) U/L Troponin I <0.012 (0.000-0.034) ng/mL Total Protein 7.3 (6.3-8.2) g/dL Albumin 3.8 (3.5-5.0) g/dL Urine Color Urine Appearance (Clear) Urine pH (5.0-8.0) Ur Specific [place] (1.001-1.035) Urine Protein (Negative) Urine Glucose (UA) (Negative) Urine Ketones (Negative) Urine Blood (Negative) Urine Nitrite (Negative) Urine Bilirubin (Negative) Urine Urobilinogen (<2.0) mg/dL Ur Leukocyte Esterase (Negative) Urine RBC (0-5) /hpf Urine WBC (0-5) /hpf Ur Squamous Epith Cells (0-4) /hpf Amorphous Sediment (None) /hpf Urine Bacteria (None) /hpf Urine Yeast (Budding) (None) /hpf 05/17/17 05/17/17 Range/Units 18:24 20:03 WBC (3.8-10.6) k/uL RBC (3.80-5.40) m/uL Hgb (11.4-16.0) gm/dL Hct (34.0-46.0) % MCV (80.0-100.0) fL MCH (25.0-35.0) pg MCHC (31.0-37.0) g/dL RDW (11.5-15.5) % Plt Count (150-450) k/uL Neutrophils % % Lymphocytes % % Monocytes % % Eosinophils % % Basophils % % Neutrophils # (1.3-7.7) k/uL Lymphocytes # (1.0-4.8) k/uL Monocytes # (0-1.0) k/uL Eosinophils # (0-0.7) k/uL Basophils # (0-0.2) k/uL Sodium (137-145) mmol/L Potassium (3.5-5.1) mmol/L Chloride (98-107) mmol/L Carbon Dioxide (22-30) mmol/L Anion Gap mmol/L BUN (7-17) mg/dL Creatinine (0.52-1.04) mg/dL Est GFR (MDRD) Af Amer (>60 ml/min/1.73 sqM) Est GFR (MDRD) Non-Af (>60 ml/min/1.73 sqM) Glucose (74-99) mg/dL Plasma Lactic Acid [place] 2.3 H* (0.7-2.0) mmol/L Calcium (8.4-10.2) mg/dL Magnesium (1.6-2.3) mg/dL Total Bilirubin (0.2-1.3) mg/dL AST (14-36) U/L ALT (9-52) U/L Alkaline Phosphatase (38-126) U/L Troponin I (0.000-0.034) ng/mL Total Protein (6.3-8.2) g/dL Albumin (3.5-5.0) g/dL Urine Color Colorless Urine Appearance Clear (Clear) Urine pH 7.0 (5.0-8.0) Ur Specific [place] 1.017 (1.001-1.035) Urine Protein Negative (Negative) Urine Glucose (UA) 4+ H (Negative) Urine Ketones Negative (Negative) Urine Blood Negative (Negative) Urine Nitrite Negative (Negative) Urine Bilirubin Negative (Negative) Urine Urobilinogen <2.0 (<2.0) mg/dL Ur Leukocyte Esterase Moderate H (Negative) Urine RBC 2 (0-5) /hpf Urine WBC 31 H (0-5) /hpf Ur Squamous Epith Cells 4 (0-4) /hpf Amorphous Sediment Rare H (None) /hpf Urine Bacteria Moderate H (None) /hpf Urine Yeast (Budding) Rare H (None) /hpf Disposition Clinical Impression: Dehydration, Hyperglycemia Disposition: ADMITTED IP TO THIS [facility] Condition: Stable Referrals: Alejandro Torres DO [Primary Care Provider] - 1-2 days Decision to Admit Reason: Admit from EC Decision Date: 05/17/17 Decision Time: 20:15
[2017-05-17 20:55] LABS: Glucose,Whole Blood 344 mg/dL (75-99)
[2017-05-17] MEDS ORDERED: ALBUTEROL NEBULIZED 2.5 MG/3 ML INHALATION PRN (23:10)
[2017-05-17] MEDS: traMADol 50 MG TAB PO PRN (23:45)
[2017-05-17] MEDS: INSULN ASP PRT/INSULIN ASPART 100 UNIT/ML 10 ML VIAL SQ SCH (23:45)
[2017-05-17] MEDS: MONTELUKAST 10 MG TAB PO SCH (23:45)
[2017-05-18 00:29] VITALS: BMI 39.9
[2017-05-18 04:06] LABS: Glucose,Whole Blood 192 mg/dL (75-99)
[2017-05-18 06:54] LABS: Glucose,Whole Blood 245 mg/dL (75-99)
[2017-05-18 07:28] LABS: Basophils # (A) 0.1 k/uL (0-0.2); Basophils % (A) 1 %; CH 31.8; CHCM 34.1; Eosinophils # (A) 0.3 k/uL (0-0.7); Eosinophils % (A) 5 %; HCT 39.3 % (34.0-46.0); Luc # (Auto) 0.17; Luc % (Auto) 3; Lymphocytes # (A) 2.3 k/uL (1.0-4.8); Lymphocytes % (A) 35 %; MCH 30.9 pg (25.0-35.0); MCHC 32.9 g/dL (31.0-37.0); MCV 93.7 fL (80.0-100.0); Mean Platelet Volume 7.9; Monocytes # (A) 0.4 k/uL (0-1.0); Monocytes % (A) 6 %; Neutrophils # (A) 3.4 k/uL (1.3-7.7); Neutrophils % (A) 51 %; RDW 13.7 % (11.5-15.5); WBC 6.6 k/uL (3.8-10.6); WBC (Perox) 6.03
[2017-05-18 07:38] LABS: ALT 28 U/L (9-52); AST 13 U/L (14-36); Alkaline Phosphatase 120 U/L (38-126); Anion Gap 6 mmol/L; Blood Urea Nitrogen 16 mg/dL (7-17); Calcium 8.6 mg/dL (8.4-10.2); Carbon Dioxide 27 mmol/L (22-30); Chloride 104 mmol/L (98-107); Glucose 232 mg/dL (74-99); Non-African American GFR(MDRD) >60 (>60 ml/min/1.73 sqM); Potassium 4.3 mmol/L (3.5-5.1); Sodium 137 mmol/L (137-145); Total Bilirubin 0.4 mg/dL (0.2-1.3); Total Protein 6.3 g/dL (6.3-8.2)
[2017-05-18] MEDS: INSULN ASP PRT/INSULIN ASPART 100 UNIT/ML 10 ML VIAL SQ SCH ×2 (08:40→22:11)
[2017-05-18] MEDS: LEVOTHYROXINE 100 MCG TAB PO SCH (08:41)
[2017-05-18] MEDS: traMADol 50 MG TAB PO PRN (10:26)
[2017-05-18 12:05] LABS: Glucose,Whole Blood 260 mg/dL (75-99)
[2017-05-18 12:06] LABS: Hemoglobin A1C 12.6 % (4.2-6.1)
[2017-05-18 16:59] LABS: Glucose,Whole Blood 218 mg/dL (75-99)
[2017-05-18 20:23] LABS: Glucose,Whole Blood 240 mg/dL (75-99)
[2017-05-18] MEDS ORDERED: ATORVASTATIN 10 MG TAB PO SCH (21:00)
[2017-05-18] MEDS: MONTELUKAST 10 MG TAB PO SCH (22:12)
[2017-05-18 23:18] VITALS: RESP 18
[2017-05-18] MEDS: SODIUM CHLORIDE 0.9% 1,000 ML IV SCH ×2 (23:31→23:33)
[2017-05-19 02:26] LABS: Glucose,Whole Blood 184 mg/dL (75-99)
[2017-05-19] MEDS: LEVOTHYROXINE 100 MCG TAB PO SCH (06:47)
[2017-05-19 06:58] LABS: Glucose,Whole Blood 153 mg/dL (75-99)
[2017-05-19] MEDS: INSULN ASP PRT/INSULIN ASPART 100 UNIT/ML 10 ML VIAL SQ SCH (08:46)
[2017-05-19] MEDS: traMADol 50 MG TAB PO PRN (08:47)
[2017-05-19] MEDS ORDERED: FLUCONAZOLE 150 MG TAB PO STA (11:17)
[2017-05-19 11:54] LABS: CH 31.7; CHCM 34.2; HCT 41.5 % (34.0-46.0); HDW 2.77; MCH 31.4 pg (25.0-35.0); MCHC 33.7 g/dL (31.0-37.0); MCV 93.2 fL (80.0-100.0); Mean Platelet Volume 7.7; RBC 4.45 m/uL (3.80-5.40); RDW 13.7 % (11.5-15.5); WBC 6.8 k/uL (3.8-10.6)
[2017-05-19 12:01] LABS: Glucose,Whole Blood 116 mg/dL (75-99)
[2017-05-19 12:02] LABS: Anion Gap 13 mmol/L; Blood Urea Nitrogen 14 mg/dL (7-17); Calcium 8.9 mg/dL (8.4-10.2); Carbon Dioxide 21 mmol/L (22-30); Chloride 107 mmol/L (98-107); Glucose 144 mg/dL (74-99); Non-African American GFR(MDRD) >60 (>60 ml/min/1.73 sqM); Potassium 4.4 mmol/L (3.5-5.1); Sodium 141 mmol/L (137-145)
[2017-05-19 12:09] VITALS: BP 136/86; PULSE 82; TEMP 98.2
--- NOTE | 2017-05-19 15:03 | HP ---
This is a pleasant noncompliant 57-year-old white female who I have not seen in the office in several months who is known diabetic and has little control over the diabetes. She has no excuse for not being complaint, but she states she has been better with her insulin regimen. However, she presents to the emergency room with diarrhea, IBS exacerbation and sugars of 600. She denies any nauseas or vomiting. She also complains of dysuria with impending urinary tract infection. She denies chest pain or shortness of breath. She does admit to new palpitations and lightheadedness and asthma and chronic obstructive pulmonary disease. Past medicines include 60 units of insulin b.i.d. subcu, Synthroid 100 mcg 1 daily, ( ) 41 q.h.s., Ventolin updrafts 1 to 2 inhalations q.i.d., Singulair 10 at bedtime, Tramadol 50 one b.i.d. ALLERGIES: ADHESIVE TAPE, BENADRYL, LATEX, OXYCODONE AND PREDNISONE. Past medical history is significant for asthma, chronic obstructive pulmonary disease, diabetes, fibromyalgia, IBS, degenerative arthritis. PAST SURGICAL HISTORY: Carpal tunnel bilateral knees, hysterectomy, tonsils and adenoids. SOCIAL HISTORY: Former for tobacco. Denies any alcohol or drugs. REVIEW OF SYSTEMS: Admits to chronic obstructive pulmonary disease, difficulty breathing, obesity, diabetes with poor control, fibromyalgia. Denies any chest pain, stroke, or paralysis. PHYSICAL EXAM: She is alert and answering questions appropriately. HEAD: Normocephalic and atraumatic. NECK: Supple, no JVD. HEART: Regular rate and rhythm. LUNGS: Clear to auscultation. ABDOMEN: Soft, nontender. No rebound, rigidity or guarding. EXTREMITIES: No cyanosis, clubbing or jaundice. NEUROLOGICAL: Cranial nerves II through XII are grossly intact. PSYCHIATRIC: Answers questions appropriately. IMPRESSIONS: 1. Acute palpitations with lightheadedness. 2. Urinary tract infection with dysuria. 3. Acute leukocytosis with count of 31,000. 4. Lactic acidosis with dehydration and hyponatremia. PLAN: Admit patient with full hydration. Insulin administration. Antibiotics. Will monitor labs. MTDD
== END 2017-05-19 13:16 | disposition home or self-care (01) ==
LOC: EC 17:48 → 3OBS 20:28
PROVIDERS: ADMIT Family Medicine; ATTEND Family Medicine
DX: R00.2 Palpitations (principal); E87.2 Acidosis; E86.0 Dehydration; E87.1 Hypo-osmolality and hyponatremia; N39.0 Urinary tract infection, site not specified; J44.9 Chronic obstructive pulmonary disease, unspecified; E11.65 Type 2 diabetes mellitus with hyperglycemia; J45.909 Unspecified asthma, uncomplicated; M79.7 Fibromyalgia; E66.9 Obesity, unspecified; K58.0 Irritable bowel syndrome with diarrhea; M19.90 Unspecified osteoarthritis, unspecified site; Z87.891 Personal history of nicotine dependence; Z79.899 Other long term (current) drug therapy; Z79.4 Long term (current) use of insulin; Z88.5 Allergy status to narcotic agent; Z88.8 Allergy status to other drugs, medicaments and biological substances; Z88.9 Allergy status to unspecified drugs, medicaments and biological substances; Z91.19 Patient's noncompliance with other medical treatment and regimen; Z91.040 Latex allergy status; Z68.39 Body mass index [BMI] 39.0-39.9, adult
CPT/HCPCS: 96361 ×2; 96366 ×3; 96365; 96375; 99285; 36415; 94640; 93005; 80053 ×2; 80048; 83036; 83605; 83735; 84484; 85025 ×2; 85027; 81001; 71020; G0378 ×3; J0696 ×3

== ENCOUNTER → 2017-10-19 | Outpatient (CLI) | payer MEDICARE, OTHER ==
[2017-10-19 11:53] LABS: Blood Urea Nitrogen 18 mg/dL (7-17)
--- NOTE | 2017-10-19 23:52 | MR ---
EXAMINATION TYPE: MR humerus LT wo/w con DATE OF EXAM: 10/19/2017 COMPARISON: NONE HISTORY: Pain left shoulder, Strain of muscle, pain, mass, limited movement CONTRAST: Standard multiplanar, multisequence MRI departmental protocol utilizing 12 mL intravenous Gadavist ga dolinium contrast. FINDINGS: Exam is limited somewhat by artifact. The humeral shaft is intact with fairly normal signal pattern. There is no evidence of a fracture. The biceps muscle and triceps muscle appear intact. I s ee no pathologic fluid collection. There is no evidence of a soft tissue mass. I see no pathologic en hancement. IMPRESSION: No demonstrated abnormality. Exams fail to demonstrate a discrete soft tissue mass. No focal abnormal ity is demonstrated in the humerus. The humeral head and shoulder joint are not included on this exam .
== END | disposition home or self-care (01) ==
LOC: RADMRIMAIN 11:17
PROVIDERS: ATTEND Orthopaedic Surgery
DX: S46.012A Strain of muscle(s) and tendon(s) of the rotator cuff of left shoulder, initial encounter (principal); M75.122 Complete rotator cuff tear or rupture of left shoulder, not specified as traumatic
CPT/HCPCS: 82565; 84520; 73220; A9581

== ENCOUNTER → 2017-10-31 | Outpatient (CLI) | payer MEDICARE, OTHER ==
--- NOTE | 2017-10-31 12:16 | MR ---
EXAMINATION TYPE: MR shoulder LT wo/w con DATE OF EXAM: 10/31/2017 COMPARISON: NONE HISTORY: Pain in left shoulder with limited movement after fall injury August 24 per patient. Mass per order. TECHNIQUE: Multiplanar, multisequence images of the left shoulder is performed without and with 12 mL intravenous Gadavist gadolinium contrast. FINDINGS: Rotator Cuff: There is massive rotator cuff tear with full-thickness retracted tears of supraspinatus and infraspinatus tendon. Tendon stump is thickened and edematous seen best paracoronal image 14 ser ies 801. There is retraction to the level of the acromioclavicular joint. Fibers involving inferior a spect of infraspinatus tendon may be intact but full-thickness retracted tear is felt more likely pre sent. There is no significant muscular atrophy. Edematous change surrounds infraspinatus muscle bulk. Subscapularis tendon is poorly visualized with marked surrounding abnormal signal, significant tear c annot be excluded. Acromioclavicular Joint: Moderate to severe Joint space loss with capsular hypertrophy and mild to mo derate spurring is present. Glenohumeral Joint: There is moderate to large sized glenohumeral joint effusion. Labrum: Increased signal superior labrum may be degenerative in etiology. Biceps Tendon: The long head of biceps is in normal location within bicipital groove. Intra-articular portion is not well-visualized anterior to this level cannot be excluded. There is artifact degradat ion on axial images. Bone marrow signal: No significant abnormality is seen. Other: There is deep defect in the superolateral humeral head at level of greater tuberosity with enh ancing oval lesion, consider erosive change possibly from inflammatory arthritis such as rheumatoid a rthritis. Clinical correlation advised. No suspicious enhancing subcutaneous mass or bone marrow lesion is identified. IMPRESSION: 1. Massive retracted full-thickness tears of supraspinatus and infraspinatus tendons. 2. Marked abnormal signal surrounding the poorly visualized subscapularis tendon, significant tear at this level cannot be excluded. 3. Poor visualization of the intra-articular portion of long head of biceps tendon, tear at this leve l cannot be excluded. 4. Unusual well-defined defect or enhancing erosive change at level of greater tuberosity consider un derlying inflammatory arthritis such as rheumatoid arthritis, correlate clinically.
== END | disposition home or self-care (01) ==
LOC: RADMRIMAIN 10:32
PROVIDERS: ATTEND Orthopaedic Surgery
DX: M75.122 Complete rotator cuff tear or rupture of left shoulder, not specified as traumatic (principal); S46.812A Strain of other muscles, fascia and tendons at shoulder and upper arm level, left arm, initial encounter
CPT/HCPCS: 73223; A9581

== ENCOUNTER → 2020-05-20 | Outpatient (CLI) | payer MEDICARE ==
[2020-05-20 14:44] LABS: Basophils # (A) 0.1 k/uL (0-0.2); Basophils % (A) 1 %; Eosinophils # (A) 0.2 k/uL (0-0.7); Eosinophils % (A) 3 %; HCT 40.6 % (34.0-46.0); HGB 12.4 gm/dL (11.4-16.0); Hypochromasia Moderate; Lymphocytes # (A) 1.3 k/uL (1.0-4.8); Lymphocytes % (A) 18 %; MCH 27.6 pg (25.0-35.0); MCHC 30.6 g/dL (31.0-37.0); MCV 90.1 fL (80.0-100.0); Mean Platelet Volume 7.8; Monocytes # (A) 0.4 k/uL (0-1.0); Monocytes % (A) 5 %; Neutrophils # (A) 5.1 k/uL (1.3-7.7); Neutrophils % (A) 71 %; Platelet Count 250 k/uL (150-450); RBC 4.51 m/uL (3.80-5.40); RDW 14.2 % (11.5-15.5); WBC 7.1 k/uL (3.8-10.6)
[2020-05-20 14:57] LABS: ALT 10 U/L (4-34); AST 15 U/L (14-36); African American GFR (CKD) >90 (>60 ml/min/1.73 sqM); Albumin 3.4 g/dL (3.5-5.0); Alkaline Phosphatase 130 U/L (38-126); Anion Gap 5 mmol/L; Blood Urea Nitrogen 15 mg/dL (7-17); Calcium 8.7 mg/dL (8.4-10.2); Carbon Dioxide 29 mmol/L (22-30); Chloride 104 mmol/L (98-107); Glucose 219 mg/dL (74-99); Non-African American GFR(CKD) 79 (>60 ml/min/1.73 sqM); Potassium 5.4 mmol/L (3.5-5.1); Sodium 138 mmol/L (137-145); Total Bilirubin 0.4 mg/dL (0.2-1.3); Total Protein 6.9 g/dL (6.3-8.2)
[2020-05-20 21:02] LABS: Hemoglobin A1C 12.2 % (4.0-6.0)
--- NOTE | 2020-05-27 11:47 | P.ARTDOP ---
Arterial Doppler LOWER EXTREMITY ARTERIAL DOPPLER: DATE OF SERVICE: 05/20/2020 Reason for study: Ulcer left ankle. Doppler waveforms: Multiphasic bilaterally throughout with excellent toe waveforms. Pulse volume recording: []. Pressure gradients: None of significance. Ankle-brachial indices: Greater than 1 bilaterally. Toe brachial indices: 0.61 on the right, 0.64 on the left Impression: Normal study.
== END | disposition home or self-care (01) ==
LOC: RADUSWWP 12:52
PROVIDERS: ATTEND Thoracic Surgery (Cardiothoracic Vascular Surgery)
DX: E08.621 Diabetes mellitus due to underlying condition with foot ulcer (principal); L97.422 Non-pressure chronic ulcer of left heel and midfoot with fat layer exposed; F17.210 Nicotine dependence, cigarettes, uncomplicated
CPT/HCPCS: 80053; 83036; 84134; 85025; 93922

== ENCOUNTER 2020-06-10 12:11 | Inpatient (IN) | payer MEDICARE, OTHER ==
[2020-06-10] MEDS ORDERED: HYDROcodone/APAP 5-325MG 1 EACH TAB PO STA (13:03)
--- NOTE | 2020-06-10 13:05 | ED ---
Wound/Laceration HPI - General Chief Complaint: Wound/Laceration Stated Complaint: Foot Infection Time Seen by Provider: 06/10/20 12:33 Source: patient Mode of arrival: wheelchair Limitations: no limitations - History of Present Illness Initial Comments: 60-year-old female patient presents to the emergency department today for admission. Patient is a chronic wound to the left foot. She was at wound care today and they did debridement. They want her to remain nonweightbearing. They will be difficult for patient to care for herself so they were hoping she could be admitted for possible custodial facility placement. They spoke to Dr. Shi who recommended coming through the emergency department. Patient is having discomfort to the foot. She denies any fevers or chills. Patient denies any recent rash, cough, shortness of breath, chest pain, abdominal pain, nausea, vomiting, diarrhea, constipation, back pain, numbness, tingling, dizziness, weakness, hematuria, dysuria, urinary urgency, urinary frequency, headache, visual changes, or any other complaints. - Related Data Home Medications Medication Instructions Recorded Confirmed traMADol HCL [Ultram] 50 mg PO QID 05/17/17 06/10/20 Collagenase [Santyl] 1 applic TOPICAL DAILY 06/10/20 06/10/20 Cyclobenzaprine [Flexeril] 10 mg PO HS 06/10/20 06/10/20 Dicyclomine [Bentyl] 10 mg PO BID 06/10/20 06/10/20 Gabapentin [Neurontin] 400 mg PO TID 06/10/20 06/10/20 Insulin Glargine,Hum.rec.anlog 70 unit SQ 06/10/20 06/10/20 [Lantus Solostar] Allergies Allergy/AdvReac Type Severity Reaction Status Date / Time adhesive tape Allergy Rash/Hives Verified 06/10/20 14:54 diphenhydramine Allergy Rash/Hives Verified 06/10/20 14:54 [From Benadryl] latex Allergy Rash/Hives Verified 06/10/20 14:54 oxycodone [From Percodan] AdvReac Altered Verified 06/10/20 14:54 Mental Status prednisone AdvReac Increased Verified 06/10/20 14:54 Blood Sugar Review of Systems ROS Statement: Those systems with pertinent positive or pertinent negative responses have been documented in the HPI. ROS Other: All systems not noted in ROS Statement are negative. Past Medical History Past Medical History: Asthma, COPD, Diabetes Mellitus, Fibromyalgia Additional Past Medical History / Comment(s): IBS History of Any Multi-Drug Resistant Organisms: None Reported Past Surgical History: Hysterectomy, Joint Replacement, Tonsillectomy Additional Past Surgical History / Comment(s): carpal tunnel, bilateral knees, L rotator cuff Past Anesthesia/Blood Transfusion Reactions: No Reported Reaction Past Psychological History: No Psychological Hx Reported Smoking Status: Current every day smoker Past Alcohol Use History: None Reported Past Drug Use History: None Reported - Past Family History Mother Family Medical History: Cancer, Coronary Artery Disease (CAD), Diabetes Mellitus Father Family Medical History: Coronary Artery Disease (CAD), Diabetes Mellitus, Renal Disease General Exam Limitations: no limitations General appearance: alert, in no apparent distress, other (This is a well- developed, well-nourished adult female patient in no acute distress. Vital signs upon presentation are temperature 98.2F, pulse 91, respirations 18, blood pressure 156/103, pulse ox 97% on room air.) Respiratory exam: Present: normal lung sounds bilaterally. Absent: respiratory distress, wheezes, rales, rhonchi, stridor Cardiovascular Exam: Present: regular rate, normal rhythm, normal heart sounds. Absent: systolic murmur, diastolic murmur, rubs, gallop, clicks GI/Abdominal exam: Present: soft, normal bowel sounds. Absent: distended, tenderness, guarding, rebound, rigid Neurological exam: Present: alert, oriented X3, CN II-XII intact Psychiatric exam: Present: normal affect, normal mood Skin exam: Present: warm, dry, intact, normal color. Absent: rash Course Vital Signs 06/10/20 06/10/20 06/10/20 12:19 13:50 14:43 Temperature 98.2 F 97.9 F Pulse Rate 91 95 Pulse Rate [ 83 Left Brachial] Respiratory 18 18 20 Rate Blood Pressure 156/103 162/76 Blood Pressure 151/92 [Left Arm] O2 Sat by Pulse 97 96 100 Oximetry 06/10/20 14:45 Temperature 98.2 F Pulse Rate 89 Pulse Rate [ Left Brachial] Respiratory 18 Rate Blood Pressure 157/87 Blood Pressure [Left Arm] O2 Sat by Pulse 96 Oximetry Medical Decision Making - Medical Decision Making 60-year-old female patient presents to the emergency department today for admission requested by her child welfare specialist. Patient has a wound to the left foot which was debrided today and her instructions are to remain non-weightbearing to the foot. They would like her admitted for placement at extended care. Case was discussed with Dr. Roman who is agreeable with this plan. She'll be admitted to the hospital. - Lab Data Result diagrams: 06/10/20 13:33 06/10/20 13:33 Disposition Clinical Impression: Wound of left foot Disposition: ADMITTED IP TO THIS [facility] Condition: Serious Decision to Admit Reason: Admit from EC Decision Date: 06/10/20 Decision Time: 14:17
[2020-06-10 14:07] LABS: Basophils # (A) 0.1 k/uL (0-0.2); Basophils % (A) 1 %; Eosinophils # (A) 0.2 k/uL (0-0.7); Eosinophils % (A) 3 %; HCT 36.9 % (34.0-46.0); HGB 11.3 gm/dL (11.4-16.0); Hypochromasia Slight; Lymphocytes # (A) 1.2 k/uL (1.0-4.8); Lymphocytes % (A) 16 %; MCH 27.4 pg (25.0-35.0); MCHC 30.7 g/dL (31.0-37.0); MCV 89.2 fL (80.0-100.0); Mean Platelet Volume 7.1; Monocytes # (A) 0.5 k/uL (0-1.0); Monocytes % (A) 6 %; Neutrophils # (A) 5.6 k/uL (1.3-7.7); Neutrophils % (A) 73 %; Platelet Count 329 k/uL (150-450); RBC 4.13 m/uL (3.80-5.40); RDW 15.2 % (11.5-15.5); WBC 7.6 k/uL (3.8-10.6)
[2020-06-10] MEDS ORDERED: NALOXONE 0.4 MG/ML 1 ML VIAL IV PRN (14:15)
[2020-06-10 14:16] LABS: Albumin 3.3 g/dL (3.5-5.0); Calcium 8.6 mg/dL (8.4-10.2); Total Bilirubin 0.6 mg/dL (0.2-1.3); Total Protein 7.1 g/dL (6.3-8.2)
[2020-06-10 14:18] LABS: Potassium 5.2 mmol/L (3.5-5.1)
[2020-06-10 17:59] LABS: Glucose,Whole Blood 44 mg/dL (75-99)
[2020-06-10 18:15] LABS: Glucose,Whole Blood 44 mg/dL (75-99)
[2020-06-10 18:32] LABS: Glucose,Whole Blood 48 mg/dL (75-99)
[2020-06-10 18:34] LABS: Glucose,Whole Blood 69 mg/dL (75-99)
[2020-06-10 18:50] LABS: Glucose,Whole Blood 95 mg/dL (75-99)
[2020-06-10 20:59] LABS: Glucose,Whole Blood 213 mg/dL (75-99)
[2020-06-10] MEDS: DICYCLOMINE 10 MG CAP PO SCH (21:01)
[2020-06-10] MEDS: INSULIN DETEMIR (LEVEMIR) 100 UNIT/ML SYR SQ SCH (21:01)
[2020-06-10] MEDS: GABAPENTIN 400 MG CAP PO SCH (21:01)
[2020-06-10] MEDS: HYDROcodone/APAP 5-325MG 1 EACH TAB PO PRN (21:02)
[2020-06-10] MEDS: INSULIN ASPART (NovoLOG) 100 UNIT/ML VIAL SQ SCH (21:04)
[2020-06-10 21:59] LABS: Appearance,Urine Clear (Clear); Bacteria,Urine Occasional /hpf; Bilirubin,Urine Negative (Negative); Blood,Urine Small (Negative); Color,Urine Yellow; Glucose,Urine (UA) Negative (Negative); Hyaline Casts,Urine 15 /lpf (0-2); Ketones,Urine Negative (Negative); Leukocyte Esterase,Urine Negative (Negative); Mucus,Urine Rare /hpf; Nitrite,Urine Negative (Negative); PH, Urine 5.5 (5.0-8.0); Protein,Urine 2+ (Negative); RBC,Urine 6 /hpf (0-5); Squamous Epithelial Cell,Urine 1 /hpf (0-4); Urobilinogen,Urine <2.0 mg/dL (<2.0); WBC,Urine 1 /hpf (0-5)
[2020-06-11 02:10] LABS: Glucose,Whole Blood 166 mg/dL (75-99)
[2020-06-11 06:54] LABS: Glucose,Whole Blood 121 mg/dL (75-99)
[2020-06-11] MEDS: INSULIN ASPART (NovoLOG) 100 UNIT/ML VIAL SQ SCH ×4 (06:56→22:00)
[2020-06-11] MEDS: DICYCLOMINE 10 MG CAP PO SCH ×2 (07:35→22:00)
[2020-06-11] MEDS: GABAPENTIN 400 MG CAP PO SCH ×3 (07:35→22:00)
[2020-06-11] MEDS: COLLAGENASE 250 UNIT/GM OINTMENT 30 GM TUBE TOPICAL SCH ×2 (10:51→14:06)
[2020-06-11] MEDS: PIPERACILLIN-TAZOBACTAM 3.375 GM in SODIUM CHLORIDE 0.9% 100 ML IVPB SCH ×2 (10:52→19:02)
[2020-06-11] MEDS: HYDROcodone/APAP 5-325MG 1 EACH TAB PO PRN ×2 (11:29→19:00)
[2020-06-11 11:55] LABS: Glucose,Whole Blood 152 mg/dL (75-99)
--- NOTE | 2020-06-11 12:07 | P.CONS ---
History of Present Illness - Reason for Consult Consult date: 06/11/20 Wound care - History of Present Illness This is a 60-year-old patient known to the wound care center who was seen by Dr. Sousa on Monday. Patient was instructed to come to the hospital to assist with nonweightbearing status. Patient has not been able to not weight- bear. She has a ulceration to the calcaneus and a new ulceration starting to the plantar forefoot of the left lower extremity. Patient has history of diabetes. She also smokes cocaine. Patient has significant diabetic neuropathy. Review of Systems Review Of Systems: Constitutional: No fever, no chills, no night sweats. No weight change. No weakness, fatigue or lethargy. No daytime sleepiness. Integumentary:reports wounds, no lesions. No rash or pruritus. No unusual bruising. No change in hair or nails. Past Medical History Past Medical History: Asthma, COPD, Diabetes Mellitus, Fibromyalgia Additional Past Medical History / Comment(s): IBS History of Any Multi-Drug Resistant Organisms: None Reported Past Surgical History: Hysterectomy, Joint Replacement, Tonsillectomy Additional Past Surgical History / Comment(s): carpal tunnel, bilateral knees, L rotator cuff Past Anesthesia/Blood Transfusion Reactions: No Reported Reaction Past Psychological History: No Psychological Hx Reported Smoking Status: Current every day smoker Past Alcohol Use History: None Reported Past Drug Use History: None Reported - Past Family History Mother Family Medical History: Cancer, Coronary Artery Disease (CAD), Diabetes Mellitus Father Family Medical History: Coronary Artery Disease (CAD), Diabetes Mellitus, Renal Disease Medications and Allergies Home Medications Medication Instructions Recorded Confirmed Type traMADol HCL [Ultram] 50 mg PO QID 05/17/17 06/10/20 History Collagenase [Santyl] 1 applic TOPICAL DAILY 06/10/20 06/10/20 History Cyclobenzaprine [Flexeril] 10 mg PO HS 06/10/20 06/10/20 History Dicyclomine [Bentyl] 10 mg PO BID 06/10/20 06/10/20 History Gabapentin [Neurontin] 400 mg PO TID 06/10/20 06/10/20 History Insulin Glargine,Hum.rec.anlog 70 unit SQ HS 06/10/20 06/10/20 History [Lantus Solostar] Allergies Allergy/AdvReac Type Severity Reaction Status Date / Time adhesive tape Allergy Rash/Hives Verified 06/10/20 14:54 diphenhydramine Allergy Rash/Hives Verified 06/10/20 14:54 [From Benadryl] latex Allergy Rash/Hives Verified 06/10/20 14:54 oxycodone [From Percodan] AdvReac Altered Verified 06/10/20 14:54 Mental Status prednisone AdvReac Increased Verified 06/10/20 14:54 Blood Sugar Physical Exam Vitals: Vital Signs Temp Pulse Pulse Pulse Resp BP BP 06/11/20 08:00 78 20 06/11/20 04:42 97.6 F 98 20 134/83 06/10/20 23:04 98.0 F 92 20 146/92 06/10/20 16:00 80 20 06/10/20 15:00 97.9 F 97 20 151/92 06/10/20 14:45 98.2 F 89 18 157/87 06/10/20 14:43 97.9 F 83 20 151/92 06/10/20 13:50 95 18 162/76 06/10/20 12:19 98.2 F 91 18 156/103 Pulse Ox 06/11/20 08:00 06/11/20 04:42 92 L 06/10/20 23:04 93 L 06/10/20 16:00 06/10/20 15:00 100 06/10/20 14:45 96 06/10/20 14:43 100 06/10/20 13:50 96 06/10/20 12:19 97 Intake and Output 06/10/20 06/11/20 06/11/20 22:59 06:59 14:59 Intake Total 290 400 Balance 290 400 Intake: Oral 290 400 Other: Voiding Method Bedside Commode Bedside Commode # Voids 1 1 # Bowel Movements 1 Physical exam: General Appearance: Alert, cooperative, no distress, appears stated age. Skin: Diabetic foot ulcer with pressure component to the left medial calcaneus grade 2 stage II. Measuring 3.6 x 3.7 x 0.2 cm the wound has fat layer exposure, there is no undermining noted there is a small amount of serosanguineous drainage. The wound margin is thickened there is a small amount of granulation seen within the wound bed and a large amount of necrotic tissue including eschar and slough. Periwound shows callus scarring and maceration. Patient has Charcot foot deformity with a nonhealing ulceration Limited to skin breakdown to the forefoot plantar. Ulceration has minimal drainage with a large amount of granulation and minimal amount of necrotic tissue including Slough. The wound edges attached to the wound bed. The ulceration measures approximately 0.5 x 1.5 x 0.1 cm. all other Skin color, texture, tugor normal, no rashes or lesions. Neurologic: Alert oriented x3 Results CBC & Chem 7: 06/10/20 13:33 06/10/20 13:33 Labs: Abnormal Lab Results - Last 24 Hours (Table) 06/10/20 06/10/20 06/10/20 Range/Units 13:33 13:33 17:57 Hgb 11.3 L (11.4-16.0) gm/dL MCHC 30.7 L (31.0-37.0) g/dL Potassium 5.2 H (3.5-5.1) mmol/L Glucose 114 H (74-99) mg/dL POC Glucose (mg/dL) 44 L (75-99) mg/dL Alkaline Phosphatase 135 H (38-126) U/L Albumin 3.3 L (3.5-5.0) g/dL Urine Protein (Negative) Urine Blood (Negative) Urine RBC (0-5) /hpf Urine Bacteria (None) /hpf Hyaline Casts (0-2) /lpf Urine Mucus (None) /hpf 06/10/20 06/10/20 06/10/20 Range/Units 18:14 18:30 18:31 Hgb (11.4-16.0) gm/dL MCHC (31.0-37.0) g/dL Potassium (3.5-5.1) mmol/L Glucose (74-99) mg/dL POC Glucose (mg/dL) 44 L 48 L 69 L (75-99) mg/dL Alkaline Phosphatase (38-126) U/L Albumin (3.5-5.0) g/dL Urine Protein (Negative) Urine Blood (Negative) Urine RBC (0-5) /hpf Urine Bacteria (None) /hpf Hyaline Casts (0-2) /lpf Urine Mucus (None) /hpf 06/10/20 06/10/20 06/11/20 Range/Units 20:58 Unknown 02:08 Hgb (11.4-16.0) gm/dL MCHC (31.0-37.0) g/dL Potassium (3.5-5.1) mmol/L Glucose (74-99) mg/dL POC Glucose (mg/dL) 213 H 166 H (75-99) mg/dL Alkaline Phosphatase (38-126) U/L Albumin (3.5-5.0) g/dL Urine Protein 2+ H (Negative) Urine Blood Small H (Negative) Urine RBC 6 H (0-5) /hpf Urine Bacteria Occasional H (None) /hpf Hyaline Casts 15 H (0-2) /lpf Urine Mucus Rare H (None) /hpf 06/11/20 06/11/20 Range/Units 06:49 11:45 Hgb (11.4-16.0) gm/dL MCHC (31.0-37.0) g/dL Potassium (3.5-5.1) mmol/L Glucose (74-99) mg/dL POC Glucose (mg/dL) 121 H 152 H (75-99) mg/dL Alkaline Phosphatase (38-126) U/L Albumin (3.5-5.0) g/dL Urine Protein (Negative) Urine Blood (Negative) Urine RBC (0-5) /hpf Urine Bacteria (None) /hpf Hyaline Casts (0-2) /lpf Urine Mucus (None) /hpf Assessment and Plan (1) Diabetic foot ulcer associated with type 2 diabetes mellitus, with fat layer exposed Current Visit: Yes Status: Acute Code(s): E11.621 - TYPE 2 DIABETES MELLITUS WITH FOOT ULCER; L97.502 - NON-PRS CHRONIC ULCER OTH PRT UNSP FOOT W FAT LAYER EXPOSED SNOMED Code(s): 0589492155277 (2) Non-pressure chronic ulcer of left heel and midfoot with fat layer exposed Current Visit: Yes Status: Acute Code(s): L97.422 - NON-PRS CHR ULCER OF LEFT HEEL AND MIDFOOT W FAT LAYER EXPOS SNOMED Code(s): 815083860 Plan: Apply Santyl, and she just in the colon depth, saline moistened gauze, dry gauze, rolled gauze and Garry wrap and secure with tape. Patient is nonw eightbearing status to the left lower extremity. Patient next appointment is scheduled for June 17 at 10:30. Thank you kindly for the consultation any questions please contact the wound care center DNP note has been reviewed and discussed with Dr. Sousa and the impression and plan of care has been directed as dictated.
[2020-06-11 13:31] VITALS: BMI 40.8
[2020-06-11 17:28] LABS: Glucose,Whole Blood 220 mg/dL (75-99)
[2020-06-11 21:16] LABS: Glucose,Whole Blood 179 mg/dL (75-99)
[2020-06-11] MEDS: INSULIN DETEMIR (LEVEMIR) 100 UNIT/ML SYR SQ SCH (22:01)
--- NOTE | 2020-06-11 22:24 | P.HPIM ---
History of Present Illness H&P Date: 06/11/20 Chief Complaint: heel wound Wiley Gonzalez is a 60 yo F with PMH of T2DM, COPD, tobacco and cocaine abuse who presented to the hospital with worsening L heel ulceration. She has been following with her PCP and the wound center for more than a month and despite santyl and wraps her ulcer has continued to worsen and she now has a new L midfoot ulceration. She was seen in the wound center on Monday and recommended to come to the hospital. She was recommended to stay off the foot but has not been able to do this. She does have neuropathy of both feet. On presentation she was hypertensive, WBC and BMP unremarkable. Review of Systems All systems: negative Constitutional: Denies chills, Denies fever Eyes: denies blurred vision, denies pain Ears, nose, mouth and throat: Denies headache, Denies sore throat Cardiovascular: Denies chest pain, Denies shortness of breath Respiratory: Denies cough Gastrointestinal: Denies abdominal pain, Denies diarrhea, Denies nausea, Denies vomiting Genitourinary: Denies dysuria, Denies hematuria Musculoskeletal: Denies myalgias Integumentary: Reports as per HPI, Reports sores, Reports wounds, Denies pruritus, Denies rash Neurological: Reports numbness, Denies weakness Psychiatric: Denies anxiety, Denies depression Endocrine: Denies fatigue, Denies weight change Past Medical History Past Medical History: Asthma, COPD, Diabetes Mellitus, Fibromyalgia Additional Past Medical History / Comment(s): IBS History of Any Multi-Drug Resistant Organisms: None Reported Past Surgical History: Hysterectomy, Joint Replacement, Tonsillectomy Additional Past Surgical History / Comment(s): carpal tunnel, bilateral knees, L rotator cuff Past Anesthesia/Blood Transfusion Reactions: No Reported Reaction Past Psychological History: No Psychological Hx Reported Smoking Status: Current every day smoker Past Alcohol Use History: None Reported Past Drug Use History: None Reported - Past Family History Mother Family Medical History: Cancer, Coronary Artery Disease (CAD), Diabetes Mellitus Father Family Medical History: Coronary Artery Disease (CAD), Diabetes Mellitus, Renal Disease Medications and Allergies Home Medications Medication Instructions Recorded Confirmed Type traMADol HCL [Ultram] 50 mg PO QID 05/17/17 06/10/20 History Collagenase [Santyl] 1 applic TOPICAL DAILY 06/10/20 06/10/20 History Cyclobenzaprine [Flexeril] 10 mg PO HS 06/10/20 06/10/20 History Dicyclomine [Bentyl] 10 mg PO BID 06/10/20 06/10/20 History Gabapentin [Neurontin] 400 mg PO TID 06/10/20 06/10/20 History Insulin Glargine,Hum.rec.anlog 70 unit SQ HS 06/10/20 06/10/20 History [Lantus Solostar] Allergies Allergy/AdvReac Type Severity Reaction Status Date / Time adhesive tape Allergy Rash/Hives Verified 06/10/20 14:54 diphenhydramine Allergy Rash/Hives Verified 06/10/20 14:54 [From Benadryl] latex Allergy Rash/Hives Verified 06/10/20 14:54 oxycodone [From Percodan] AdvReac Altered Verified 06/10/20 14:54 Mental Status prednisone AdvReac Increased Verified 06/10/20 14:54 Blood Sugar Physical Exam Vitals: Vital Signs Temp Pulse Pulse Resp BP Pulse Ox 06/11/20 21:07 98.3 F 91 91 20 130/83 93 L 06/11/20 20:56 91 20 06/11/20 16:41 82 20 06/11/20 15:12 72 19 06/11/20 12:12 97.7 F 78 19 159/92 95 06/11/20 08:00 78 20 06/11/20 04:42 97.6 F 98 20 134/83 92 L 06/10/20 23:04 98.0 F 92 20 146/92 93 L Intake and Output 06/11/20 06/11/20 06/11/20 06:59 14:59 22:59 Intake Total 1480 1080 Balance 1480 1080 Intake: Oral 1480 1080 Other: Voiding Method Bedside Commode Bedside Commode # Voids 1 3 1 Weight 118.18 kg General: well nourished, obese, NAD. Vitals reviewed Eyes: PERRL, EOMI, conjunctiva normal HENT: normocephalic, mucus membranes moist Neck: supple, no JVD Lungs: normal respiratory effort, no wheezes or rales CV: Regular rate and rhythm, no murmur. Peripheral pulses 2+ Abdomen: soft, nondistended, no organomegaly Lymph: no cervical or axillary LAD Skin: warm and dry. L heel posterior and plantar surface with 4x5 cm region of ulceration extending to subcutanous fat. No erythema or drainage Neuro: A&Ox3, normal mood and affect Results CBC & Chem 7: 06/10/20 13:33 06/10/20 13:33 Labs: Abnormal Lab Results - Last 24 Hours (Table) 06/11/20 06/11/20 06/11/20 Range/Units 02:08 06:49 11:36 ESR 56 H (0-20) mm/hr POC Glucose (mg/dL) 166 H 121 H (75-99) mg/dL C-Reactive Protein (<10.0) mg/L 06/11/20 06/11/20 06/11/20 Range/Units 11:36 11:45 17:27 ESR (0-20) mm/hr POC Glucose (mg/dL) 152 H 220 H (75-99) mg/dL C-Reactive Protein 24.4 H (<10.0) mg/L 06/11/20 Range/Units 21:14 ESR (0-20) mm/hr POC Glucose (mg/dL) 179 H (75-99) mg/dL C-Reactive Protein (<10.0) mg/L Thrombosis Risk Factor Assmnt - Choose All That Apply Any of the Below Risk Factors Present?: Yes Each Factor Represents 1 point: Abnormal pulmonary function (COPD), Age 41-60 years, Obesity (BMI >25), Swollen legs (current) Other Risk Factors: No Other congenital or acquired thrombophilia - If yes, enter type in comment: No Thrombosis Risk Factor Assessment Total Risk Factor Score: 4 Thrombosis Risk Factor Assessment Level: Moderate Risk Assessment and Plan (1) Hypertension Current Visit: Yes Status: Acute Code(s): I10 - ESSENTIAL (PRIMARY) HYPERTENSION SNOMED Code(s): 62223321 (2) Diabetic neuropathy Current Visit: Yes Status: Acute Code(s): E11.40 - TYPE 2 DIABETES MELLITUS WITH DIABETIC NEUROPATHY, UNSP SNOMED Code(s): 685698371 (3) Peripheral vascular disease Current Visit: Yes Status: Acute Code(s): I73.9 - PERIPHERAL VASCULAR DI SEASE, UNSPECIFIED SNOMED Code(s): 492556387 (4) Diabetic foot ulcer associated with type 2 diabetes mellitus, with fat layer exposed Current Visit: Yes Status: Acute Code(s): E11.621 - TYPE 2 DIABETES MELLITUS WITH FOOT ULCER; L97.502 - NON-PRS CHRONIC ULCER OTH PRT UNSP FOOT W FAT LAYER EXPOSED SNOMED Code(s): 8858729385085 (5) Non-pressure chronic ulcer of left heel and midfoot with fat layer exposed Current Visit: Yes Status: Acute Code(s): L97.422 - NON-PRS CHR ULCER OF LEFT HEEL AND MIDFOOT W FAT LAYER EXPOS SNOMED Code(s): 928838579 Plan: 1. Insufficiency and diabetic ulcer of L heel. Admit and consult to ID and wound team. Non weight bearing. Check CRP, procalcitonin and start empiric zosyn while awaiting results 2. T2DM. Continue lantus q hs, decrease to 20 units. accucheck, sliding scale 3. Neuropathy. Continue gabapentin 4. HTN. Start lisinopril
--- NOTE | 2020-06-12 00:01 | P.CONS ---
History of Present Illness - Reason for Consult Consult date: 06/11/20 Left diabetic foot wound Requesting physician: Marcos Shi - Chief Complaint Nonhealing wound to the left heel x weeks - History of Present Illness Patient is a 60 year female with a past medical history significant for diabetes mellitus in this patient currently has been dealing with chronic nonhealing wound to the left foot for with the patient has been following with in the wound care center, patient apparently has not been able to offload left foot and concern for nonhealing of this wound the patient did have deployment of wound at the wound care center yesterday subsequently the patient was advised to go to the ER to be admitted to the hospital possible transfer to care home for offloading , the patient currently denies having any fever or any chills, patient been complaining of some pain to the left foot wound area more of a dull aching intensity about 6 out of 10 and no radiation denies having significant swelling or redness or any purulent drainage or foul-smelling from her wound area patient did receive a dose of Zosyn and he actually was considered for further management of antibiotic therapy, patient did have elevated sed rate of 56 Review of Systems Positive point has been mentioned in the HPI rest of the systems are negative Past Medical History Past Medical History: Asthma, COPD, Diabetes Mellitus, Fibromyalgia Additional Past Medical History / Comment(s): IBS History of Any Multi-Drug Resistant Organisms: None Reported Past Surgical History: Hysterectomy, Joint Replacement, Tonsillectomy Additional Past Surgical History / Comment(s): carpal tunnel, bilateral knees, L rotator cuff Past Anesthesia/Blood Transfusion Reactions: No Reported Reaction Past Psychological History: No Psychological Hx Reported Smoking Status: Current every day smoker Past Alcohol Use History: None Reported Past Drug Use History: None Reported - Past Family History Mother Family Medical History: Cancer, Coronary Artery Disease (CAD), Diabetes Mellitus Father Family Medical History: Coronary Artery Disease (CAD), Diabetes Mellitus, Renal Disease Medications and Allergies Home Medications Medication Instructions Recorded Confirmed Type traMADol HCL [Ultram] 50 mg PO QID 05/17/17 06/10/20 History Collagenase [Santyl] 1 applic TOPICAL DAILY 06/10/20 06/10/20 History Cyclobenzaprine [Flexeril] 10 mg PO HS 06/10/20 06/10/20 History Dicyclomine [Bentyl] 10 mg PO BID 06/10/20 06/10/20 History Gabapentin [Neurontin] 400 mg PO TID 06/10/20 06/10/20 History Insulin Glargine,Hum.rec.anlog 70 unit SQ HS 06/10/20 06/10/20 History [Lantus Solostar] Allergies Allergy/AdvReac Type Severity Reaction Status Date / Time adhesive tape Allergy Rash/Hives Verified 06/10/20 14:54 diphenhydramine Allergy Rash/Hives Verified 06/10/20 14:54 [From Benadryl] latex Allergy Rash/Hives Verified 06/10/20 14:54 oxycodone [From Percodan] AdvReac Altered Verified 06/10/20 14:54 Mental Status prednisone AdvReac Increased Verified 06/10/20 14:54 Blood Sugar Physical Exam Vitals: Vital Signs Temp Pulse Pulse Resp BP Pulse Ox 06/11/20 21:07 98.3 F 91 91 20 130/83 93 L 06/11/20 20:56 91 20 06/11/20 16:41 82 20 06/11/20 15:12 72 19 06/11/20 12:12 97.7 F 78 19 159/92 95 06/11/20 08:00 78 20 06/11/20 04:42 97.6 F 98 20 134/83 92 L Intake and Output 06/11/20 06/11/20 06/12/20 14:59 22:59 06:59 Intake Total 1480 1620 Balance 1480 1620 Intake: Oral 1480 1620 Other: Voiding Method Bedside Commode Bedside Commode # Voids 3 1 Weight 118.18 kg GENERAL DESCRIPTION: Middle-aged female lying in bed, no distress. No tachypnea or accessory muscle of respiration use. HEENT: Shows Pallor , no scleral icterus. Oral mucous membrane is dry. No pha ryngeal erythema or thrush NECK: Trachea central, no thyromegaly. LUNGS: Unlabored breathing. Clear to auscultation anteriorly. No wheeze or crackle. HEART: S1, S2, regular rate and rhythm. No loud murmur ABDOMEN: Soft, no tenderness , guarding or rigidity, no organomegaly EXTREMITIES: No edema of feet. Left heel wound with minimal slough tissue no significant surrounding swelling redness or any drainage SKIN: No rash, no masses palpable. NEUROLOGICAL: The patient is awake, alert, oriented x3, mood and affect normal. Results CBC & Chem 7: 06/10/20 13:33 06/10/20 13:33 Labs: Abnormal Lab Results - Last 24 Hours (Table) 06/11/20 06/11/20 06/11/20 Range/Units 02:08 06:49 11:36 ESR 56 H (0-20) mm/hr POC Glucose (mg/dL) 166 H 121 H (75-99) mg/dL C-Reactive Protein (<10.0) mg/L 06/11/20 06/11/20 06/11/20 Range/Units 11:36 11:45 17:27 ESR (0-20) mm/hr POC Glucose (mg/dL) 152 H 220 H (75-99) mg/dL C-Reactive Protein 24.4 H (<10.0) mg/L 06/11/20 Range/Units 21:14 ESR (0-20) mm/hr POC Glucose (mg/dL) 179 H (75-99) mg/dL C-Reactive Protein (<10.0) mg/L Assessment and Plan Assessment: 1- patient with a chronic nonhealing wound to the left heel area and this patient is significant for with offloading of the left heel in this patient status post debridement of the wound and deep cultures which are currently pending with concern for secondary infection though no significant ischemic pey[place] nges has been seen around the wound her white count is normal however her sed rate is elevated that is slightly concerning we will need to cover for the polymicrobial madeleine usually associated with these diabetic foot infection (1) Diabetic infection of left foot Current Visit: Yes Status: Acute Code(s): E11.628 - TYPE 2 DIABETES MELLITUS WITH OTHER SKIN COMPLICATIONS; L08.9 - LOCAL INFECTION OF THE SKIN AND SUBCUTANEOUS TISSUE, UNSP SNOMED Code(s): 17563923 Plan: 1- we will obtain blood cultures , CRP, x-rays of the left foot 2- empirically add Unasyn 3 g every 6 hours 3- local wound care per wound care team We will follow on clinical condition and cultures to further adjust medication if needed Thank you for this consultation will follow this patient with you Time with Patient: Greater than 30
[2020-06-12] MEDS: AMPICILLIN-SULBACTAM 3 GM in SODIUM CHLORIDE 0.9% 100 ML IVPB SCH ×4 (00:48→17:43)
[2020-06-12 07:13] LABS: Glucose,Whole Blood 188 mg/dL (75-99)
[2020-06-12] MEDS: DICYCLOMINE 10 MG CAP PO SCH ×2 (08:19→21:41)
[2020-06-12] MEDS: INSULIN ASPART (NovoLOG) 100 UNIT/ML VIAL SQ SCH ×4 (08:19→21:42)
[2020-06-12] MEDS: GABAPENTIN 400 MG CAP PO SCH ×3 (08:19→21:41)
[2020-06-12] MEDS: lisinopriL 10 MG TAB PO SCH (08:19)
[2020-06-12] MEDS: COLLAGENASE 250 UNIT/GM OINTMENT 30 GM TUBE TOPICAL SCH ×2 (08:19→08:20)
[2020-06-12] MEDS: HYDROcodone/APAP 5-325MG 1 EACH TAB PO PRN ×2 (08:27→19:23)
[2020-06-12 08:30] LABS: Basophils # (A) 0.1 k/uL (0-0.2); Basophils % (A) 1 %; Eosinophils # (A) 0.2 k/uL (0-0.7); Eosinophils % (A) 3 %; HCT 35.7 % (34.0-46.0); HGB 11.1 gm/dL (11.4-16.0); Hypochromasia Moderate; Lymphocytes % (A) 16 %; MCH 27.7 pg (25.0-35.0); MCV 89.4 fL (80.0-100.0); Mean Platelet Volume 7.2; Monocytes # (A) 0.4 k/uL (0-1.0); Monocytes % (A) 6 %; Neutrophils # (A) 4.6 k/uL (1.3-7.7); Neutrophils % (A) 72 %; Platelet Count 289 k/uL (150-450); RBC 3.99 m/uL (3.80-5.40); RDW 15.3 % (11.5-15.5); WBC 6.3 k/uL (3.8-10.6)
[2020-06-12] MEDS ORDERED: IPRATROPIUM-ALBUTEROL 3 ML NEB INHALATION PRN (10:36)
--- NOTE | 2020-06-12 10:51 | P.PN ---
Subjective Progress Note Date: 06/12/20 Wiley Gonzalez is a 60 yo F with PMH of T2DM, COPD, tobacco and cocaine abuse who presented to the hospital with worsening L heel ulceration. She has been following with her PCP and the wound center for more than a month and despite santyl and wraps her ulcer has continued to worsen and she now has a new L mid foot ulceration. She was seen in the wound center on Monday and recommended to come to the hospital. She was recommended to stay off the foot but has not been able to do this. She does have neuropathy of both feet. On presentation she was hypertensive, WBC and BMP unremarkable. 06/12/2020 maintained on Unasyn as per infectious disease. Cultures pending. Denies fever or chills. Consuming 75-100% of meals, blood sugars ranging high 170s to 220s. Pain controlled. Denies chest pain, palpitations or shortness of breath. Afebrile, normal WBC. Objective - Vital Signs Vital signs: Vital Signs Temp 97.9 F 06/12/20 06:14 Pulse 94 06/12/20 06:14 Resp 18 06/12/20 06:14 BP 152/54 06/12/20 06:14 Pulse Ox 92 L 06/12/20 06:14 Intake & Output 06/11/20 06/12/20 06/12/20 18:59 06:59 18:59 Intake Total 2560 540 Balance 2560 540 Weight 118.18 kg Intake: Oral 2560 540 Other: Voiding Method Bedside Commode Bedside Commode Bedside Commode # Voids 1 2 - Exam General: Sitting up in chair, NAD. Vitals reviewed Eyes: PERRL, EOMI, conjunctiva normal, HENT: normocephalic, oral mucosa moist Neck: supple, no JVD Lungs: normal respiratory effort, mild expiratory wheezes CV: Regular rate and rhythm, no murmur. Peripheral pulses 2+ Abdomen: soft, nondistended, no organomegaly Lymph: no cervical or axillary LAD Skin: warm and dry. L heel dressing clean dry and intact Neuro: A&Ox3, normal mood and affect - Labs CBC & Chem 7: 06/12/20 07:29 06/10/20 13:33 Labs: Abnormal Lab Results - Last 24 Hours (Table) 09/10/20 09/10/20 09/10/20 Range/Units 11:36 11:36 11:45 Hgb (11.4-16.0) gm/dL ESR 56 H (0-20) mm/hr POC Glucose (mg/dL) 152 H (75-99) mg/dL C-Reactive Protein 24.4 H (<10.0) mg/L 06/11/20 06/11/20 06/12/20 Range/Units 17:27 21:14 07:11 Hgb (11.4-16.0) gm/dL ESR (0-20) mm/hr POC Glucose (mg/dL) 220 H 179 H 188 H (75-99) mg/dL C-Reactive Protein (<10.0) mg/L 06/12/20 06/12/20 Range/Units 07:29 07:29 Hgb 11.1 L (11.4-16.0) gm/dL ESR (0-20) mm/hr POC Glucose (mg/dL) (75-99) mg/dL C-Reactive Protein 22.6 H (<10.0) mg/L Assessment and Plan Assessment: (1) Hypertension Current Visit: Yes Status: Acute Code(s): I10 - ESSENTIAL (PRIMARY) HYPERTENSION SNOMED Code(s): 05070315 (2) Diabetic neuropathy Current Visit: Yes Status: Acute Code(s): E11.40 - TYPE 2 DIABETES MELLITUS WITH DIABETIC NEUROPATHY, UNSP SNOMED Code(s): 727303903 (3) Peripheral vascular disease Current Visit: Yes Status: Acute Code(s): I73.9 - PERIPHERAL VASCULAR DISEASE, UNSPECIFIED SNOMED Code(s): 733749211 (4) Diabetic foot ulcer associated with type 2 diabetes mellitus, with fat layer exposed Current Visit: Yes Status: Acute Code(s): E11.621 - TYPE 2 DIABETES MELLITUS WITH FOOT ULCER; L97.502 - NON-PRS CHRONIC ULCER OTH PRT UNSP FOOT W FAT LAYER EXPOSED SNOMED Code(s): 7517921075522 (5) Non-pressure chronic ulcer of left heel and midfoot with fat layer exposed Current Visit: Yes Status: Acute Code(s): L97.422 - NON-PRS CHR ULCER OF LEFT HEEL AND MIDFOOT W FAT LAYER EXPOS SNOMED Code(s): 904101412 (6) COPD Plan: Continue current medication regime ,monitoring and symptomatic treatment. Levemir increased to 25 units , close monitoring of Accu-Cheks PRN nebulized bronchodilators added to med regimen. Wound care as per wound care team. IV antibiotics as per infectious disease, cultures pending. Nonweightbearing of affected extremity. PT. Discharge planning for subacute rehab pending culture results , final DC recommendations and clearance from infectious disease. Smoking cessation reinforced. The impression and plan of care has been dictated as directed. : I performed a history and examination of this patient, discussed the same with the dictator. I agree with the dictator's note ,documented as a scribe. Any additional findings or plans will be noted.
[2020-06-12 11:09] LABS: Glucose,Whole Blood 190 mg/dL (75-99)
--- NOTE | 2020-06-12 13:34 | XR ---
Left foot HISTORY: Diabetic left foot wound 3 views of the left foot There is periosteal reaction, cortical thickening involving the third fourth and fifth metatarsals. T here is destruction at the tarsometatarsal joints and midfoot, lateral subluxation, possible fracture involving the proximal second metatarsal. Disruption of normal alignment in the midfoot is present. Arthropathy changes are also present within the foot, there is soft tissue swelling. There is a plant ar calcaneal spur. IMPRESSION: Charcot foot
--- NOTE | 2020-06-12 15:57 | PN ---
PROGRESS NOTE DATE OF SERVICE: 06/12/2020 REASON FOR FOLLOWUP: Left diabetic foot infection. INTERVAL HISTORY: The patient is currently afebrile. The patient denies having any chest pain or shortness of breath or cough. No abdominal pain or any pain to the right foot wound area. PHYSICAL EXAMINATION: Her blood pressure is 154/96 with a pulse of 84, temperature 97.5. She is 95% on room air. General description is a middle-aged female up in the bed in no distress. RESPIRATORY SYSTEM: Unlabored breathing. Clear to auscultation anteriorly. HEART: S1, S2. Regular rate and rhythm. ABDOMEN: Soft. No tenderness. posterior heel wound with minimal slough tissue, surrounding swelling. No redness or drainage. LABS: Hemoglobin 11.9, white count 6.3. CRP is 22.6. X-ray was more of a Charcot joint. Cultures obtained in the wound are showing Staph aureus and Streptococcus agalactiae. DIAGNOSTIC IMPRESSION AND PLAN: Patient with diabetic foot infection with a nonhealing wound to the posterior heel area. Plan is to keep the patient on Unasyn while waiting for the culture to finalize. She will need a PICC or midline and outpatient antibiotic therapy. The x-ray did show some destructive changes, but not at the heel where the patient has the ulcer. We will obtain a bone scan to rule out osteomyelitis. Continue with supportive care. MMODL / IJN: [id number] /
[2020-06-12 17:23] LABS: Glucose,Whole Blood 221 mg/dL (75-99)
[2020-06-12 21:07] LABS: Glucose,Whole Blood 265 mg/dL (75-99)
[2020-06-12] MEDS: INSULIN DETEMIR (LEVEMIR) 100 UNIT/ML SYR SQ SCH (21:44)
[2020-06-13] MEDS: AMPICILLIN-SULBACTAM 3 GM in SODIUM CHLORIDE 0.9% 100 ML IVPB SCH ×5 (00:06→23:48)
[2020-06-13 07:36] LABS: Glucose,Whole Blood 177 mg/dL (75-99)
[2020-06-13 07:59] LABS: Basophils # (A) 0.1 k/uL (0-0.2); Basophils % (A) 1 %; Eosinophils # (A) 0.2 k/uL (0-0.7); Eosinophils % (A) 3 %; HCT 39.3 % (34.0-46.0); HGB 11.7 gm/dL (11.4-16.0); Hypochromasia Marked; Lymphocytes # (A) 1.2 k/uL (1.0-4.8); Lymphocytes % (A) 19 %; MCH 27.2 pg (25.0-35.0); MCHC 29.8 g/dL (31.0-37.0); MCV 91.3 fL (80.0-100.0); Mean Platelet Volume 7.1; Monocytes # (A) 0.4 k/uL (0-1.0); Monocytes % (A) 6 %; Neutrophils # (A) 4.6 k/uL (1.3-7.7); Neutrophils % (A) 70 %; Platelet Count 296 k/uL (150-450); RBC 4.31 m/uL (3.80-5.40); RDW 14.7 % (11.5-15.5); WBC 6.5 k/uL (3.8-10.6)
[2020-06-13] MEDS: DICYCLOMINE 10 MG CAP PO SCH ×2 (08:06→22:44)
[2020-06-13] MEDS: lisinopriL 10 MG TAB PO SCH (08:06)
[2020-06-13] MEDS: HYDROcodone/APAP 5-325MG 1 EACH TAB PO PRN ×3 (08:06→22:44)
[2020-06-13] MEDS: INSULIN ASPART (NovoLOG) 100 UNIT/ML VIAL SQ SCH ×4 (08:06→22:44)
[2020-06-13] MEDS: GABAPENTIN 400 MG CAP PO SCH ×3 (08:06→22:44)
[2020-06-13] MEDS: COLLAGENASE 250 UNIT/GM OINTMENT 30 GM TUBE TOPICAL SCH ×2 (08:07)
[2020-06-13 08:15] LABS: Calcium 8.5 mg/dL (8.4-10.2); Potassium 5.4 mmol/L (3.5-5.1)
[2020-06-13 11:29] LABS: Glucose,Whole Blood 284 mg/dL (75-99)
--- NOTE | 2020-06-13 11:41 | NM ---
EXAMINATION TYPE: NM bone 3 phase DATE OF EXAM: 06/13/2020 COMPARISON: Left foot radiograph 06/12/2020 HISTORY: Left posterior heel wound. Concern for osteomyelitis. Triple phase bone scintigraphy was performed following the injection of 26.5 mCi Tc 99m MDP. Immedia te images and 3 hours post injection images acquired. FINDINGS: There is increased activity of the left posterior foot on flow, blood pool, and delayed images. There is also three-phase positive increased activity of the left midfoot. IMPRESSION: Positive three-phase bone scan of the calcaneus in region of reported wound likely represents osteomy elitis. Positive three-phase bone scan of the midfoot likely represents Charcot foot versus osteomyelitis.
[2020-06-13] MEDS ORDERED: SODIUM POLYSTYRENE SULFONATE 15 GM/60 ML BOTTLE PO STA (14:02)
--- NOTE | 2020-06-13 14:48 | P.PN ---
Subjective Patient is admitted for infected left heel ulcer. Patient appears to osteomyelitis wound cultures are not available but patient is on Unasyn as per infectious disease. Constitutional: Denied any fatigue denied any fever. Cardio vascular: denied any chest pain, palpitations Gastrointestinal denied any nausea vomiting Pulmonary: Denied any shortness of breath cough Neurologic denied any new focal deficits All inpatient medications were reviewed and appropriate changes in these medications as dictated in the interval history and assessment and plan. Objective - Vital Signs Vital signs: Vital Signs Temp 98.1 F 06/13/20 12:09 Pulse 81 06/13/20 12:09 Resp 18 06/13/20 12:09 BP 152/95 06/13/20 12:09 Pulse Ox 95 06/13/20 12:09 Intake & Output 06/12/20 06/13/20 06/13/20 18:59 06:59 18:59 Other: Voiding Method Bedside Commode Bedside Commode # Voids 3 1 - Exam PHYSICAL EXAMINATION: GENERAL: The patient is alert and oriented x3, not in any acute distress. Well developed, well nourished. HEENT: Pupils are round and equally reacting to light. EOMI. No scleral icterus. No conjunctival pallor. Normocephalic, atraumatic. No pharyngeal erythema. No thyromegaly. CARDIOVASCULAR: S1 and S2 present. No murmurs, rubs, or gallops. PULMONARY: Chest is clear to auscultation, no wheezing or crackles. ABDOMEN: Soft, nontender, nondistended, normoactive bowel sounds. No palpable organomegaly. MUSCULOSKELETAL: No joint swelling or deformity. EXTREMITIES: No cyanosis, clubbing, or pedal edema. NEUROLOGICAL: Gross neurological examination did not reveal any focal deficits. SKIN: She has stage IV left heel ulcer. - Labs CBC & Chem 7: 06/13/20 07:25 06/13/20 07:25 Labs: Abnormal Lab Results - Last 24 Hours (Table) 06/12/20 06/12/20 06/13/20 Range/Units 17:22 21:02 07:25 MCHC 29.8 L (31.0-37.0) g/dL Potassium (3.5-5.1) mmol/L BUN (7-17) mg/dL Glucose (74-99) mg/dL POC Glucose (mg/dL) 221 H 265 H (75-99) mg/dL 06/13/20 06/13/20 06/13/20 Range/Units 07:25 07:28 11:18 MCHC (31.0-37.0) g/dL Potassium 5.4 H (3.5-5.1) mmol/L BUN 19 H (7-17) mg/dL Glucose 179 H (74-99) mg/dL POC Glucose (mg/dL) 177 H 284 H (75-99) mg/dL Microbiology - Last 24 Hours (Table) 06/12/20 07:29 Blood Culture - Preliminary Blood No Growth after 24 hours Assessment and Plan Plan: -Osteomyelitis of the left to heal an infected left heel ulcer: Continue with the Unasyn. Patient is being followed by infectious disease made a PICC line in IV antibiotics as an outpatient -Peripheral vascular disease -Diabetic neuropathy -COPD without any acute exacerbation -Fibromyalgia -Nicotine abuse: Counseling was provided -Mild hyperkalemia: Secondary to lisinopril, lisinopril will not be held but patient will be started on low potassium diet will will give a dose of Kayexalate if potassium is not corrected with the low potassium diet and lisinopril he to be discontinued at the time For above-mentioned medical problems patient will be continued on doesn't medications.
[2020-06-13 17:06] LABS: Glucose,Whole Blood 255 mg/dL (75-99)
--- NOTE | 2020-06-13 18:28 | PN ---
PROGRESS NOTE DATE OF SERVICE: 06/13/2020 REASON FOR FOLLOWUP VISIT: Left posterior heel diabetic foot wound with underlying acute osteomyelitis, MSSA. INTERVAL HISTORY: Patient is currently afebrile. She is breathing comfortably. No chest pain or shortness of breath or cough. No abdominal pain. No pain to the right heel wound. PHYSICAL EXAMINATION: Blood pressure is 164/75, pulse of 81, temperature of 98.1. She is 95% on room air. General description is a middle-aged female up in the bed in no distress. Left heel wound is currently dressed. LABS: Hemoglobin 11.1, white count 6.1, BUN of 19, creatinine 0.93. Wound culture with MSSA and strep. DIAGNOSTIC IMPRESSION AND PLAN: Patient with left posterior infected pressure ulcer, now with evidence of osteomyelitis on the basis of the bone scan. Culture with MSSA and Staph. Patient is covered with Unasyn. Plan will be for at least 4-6 weeks of antibiotic. Local care per Surgery. Continue supportive care. MMODL / IJN: [id number] /
[2020-06-13 21:45] LABS: Glucose,Whole Blood 263 mg/dL (75-99)
[2020-06-13] MEDS: INSULIN DETEMIR (LEVEMIR) 100 UNIT/ML SYR SQ SCH (22:45)
[2020-06-14] MEDS: AMPICILLIN-SULBACTAM 3 GM in SODIUM CHLORIDE 0.9% 100 ML IVPB SCH ×3 (06:18→17:10)
[2020-06-14] MEDS: HYDROcodone/APAP 5-325MG 1 EACH TAB PO PRN ×3 (06:22→22:42)
[2020-06-14 07:19] LABS: Glucose,Whole Blood 122 mg/dL (75-99)
[2020-06-14] MEDS: INSULIN ASPART (NovoLOG) 100 UNIT/ML VIAL SQ SCH ×4 (07:25→20:59)
[2020-06-14 07:27] LABS: African American GFR (CKD) >90 (>60 ml/min/1.73 sqM); Anion Gap 3 mmol/L; Blood Urea Nitrogen 19 mg/dL (7-17); Calcium 8.3 mg/dL (8.4-10.2); Carbon Dioxide 28 mmol/L (22-30); Chloride 106 mmol/L (98-107); Glucose 132 mg/dL (74-99); Non-African American GFR(CKD) 79 (>60 ml/min/1.73 sqM); Sodium 137 mmol/L (137-145)
[2020-06-14] MEDS: DICYCLOMINE 10 MG CAP PO SCH ×3 (08:14→20:58)
[2020-06-14] MEDS: GABAPENTIN 400 MG CAP PO SCH ×3 (08:15→21:04)
[2020-06-14] MEDS: COLLAGENASE 250 UNIT/GM OINTMENT 30 GM TUBE TOPICAL SCH ×3 (08:15→21:00)
[2020-06-14] MEDS: lisinopriL 10 MG TAB PO SCH (08:15)
--- NOTE | 2020-06-14 12:01 | P.PN ---
Subjective Patient is admitted for infected left heel ulcer. Patient appears to osteomyelitis wound cultures are not available but patient is on Unasyn as per infectious disease. 06/14/2020 Patient is awaiting PICC line placement and IV antibiotics. Constitutional: Denied any fatigue denied any fever. Cardio vascular: denied any chest pain, palpitations Gastrointestinal denied any nausea vomiting Pulmonary: Denied any shortness of breath cough Neurologic denied any new focal deficits All inpatient medications were reviewed and appropriate changes in these medications as dictated in the interval history and assessment and plan. Objective - Vital Signs Vital signs: Vital Signs Temp 97.6 F 06/14/20 05:57 Pulse 90 06/14/20 05:57 Resp 18 06/14/20 05:57 BP 136/80 06/14/20 05:57 Pulse Ox 90 L 06/14/20 05:57 Intake & Output 06/13/20 06/14/20 06/14/20 18:59 06:59 18:59 Intake Total 850 Balance 850 Intake: Oral 850 Other: Voiding Method Bedside Commode Bedside Commode # Voids 1 1 1 # Bowel Movements 1 1 - Exam PHYSICAL EXAMINATION: GENERAL: The patient is alert and oriented x3, not in any acute distress. Well developed, well nourished. HEENT: Pupils are round and equally reacting to light. EOMI. No scleral icterus. No conjunctival pallor. Normocephalic, atraumatic. No pharyngeal erythema. No thyromegaly. CARDIOVASCULAR: S1 and S2 present. No murmurs, rubs, or gallops. PULMONARY: Chest is clear to auscultation, no wheezing or crackles. ABDOMEN: Soft, nontender, nondistended, normoactive bowel sounds. No palpable organomegaly. MUSCULOSKELETAL: No joint swelling or deformity. EXTREMITIES: No cyanosis, clubbing, or pedal edema. NEUROLOGICAL: Gross neurological examination did not reveal any focal deficits. SKIN: She has stage IV left heel ulcer. - Labs CBC & Chem 7: 06/13/20 07:25 06/14/20 06:44 Labs: Abnormal Lab Results - Last 24 Hours (Table) 06/13/20 06/13/20 06/14/20 Range/Units 17:03 21:43 06:44 BUN 19 H (7-17) mg/dL Glucose 132 H (74-99) mg/dL POC Glucose (mg/dL) 255 H 263 H (75-99) mg/dL Calcium 8.3 L (8.4-10.2) mg/dL 06/14/20 Range/Units 07:17 BUN (7-17) mg/dL Glucose (74-99) mg/dL POC Glucose (mg/dL) 122 H (75-99) mg/dL Calcium (8.4-10.2) mg/dL Microbiology - Last 24 Hours (Table) 06/12/20 07:29 Blood Culture - Preliminary Blood No Growth after 48 hours Assessment and Plan Plan: -Osteomyelitis of the left to heal an infected left heel ulcer: Continue with the Unasyn. Patient is being followed by infectious disease made a PICC line in IV antibiotics as an outpatient -Peripheral vascular disease -Diabetic neuropathy -COPD without any acute exacerbation -Fibromyalgia -Nicotine abuse: Counseling was provided -Mild hyperkalemia: Secondary to lisinopril, lisinopril will not be held but patient will be started on low potassium diet will will give a dose of Kayexalate if potassium is not corrected with the low potassium diet and lisinopril he to be discontinued at the time For above-mentioned medical problems patient will be continued on doesn't medications.
[2020-06-14 12:38] LABS: Glucose,Whole Blood 270 mg/dL (75-99)
[2020-06-14 17:07] LABS: Glucose,Whole Blood 307 mg/dL (75-99)
[2020-06-14 20:02] LABS: Glucose,Whole Blood 296 mg/dL (75-99)
[2020-06-14] MEDS ORDERED: DICYCLOMINE 10 MG CAP PO STA (20:51)
[2020-06-14] MEDS: INSULIN DETEMIR (LEVEMIR) 100 UNIT/ML SYR SQ SCH (21:00)
[2020-06-15] MEDS: AMPICILLIN-SULBACTAM 3 GM in SODIUM CHLORIDE 0.9% 100 ML IVPB SCH ×3 (00:22→12:50)
[2020-06-15 02:24] VITALS: RESP 16
[2020-06-15 07:10] LABS: Glucose,Whole Blood 165 mg/dL (75-99)
[2020-06-15] MEDS: lisinopriL 10 MG TAB PO SCH (08:00)
[2020-06-15] MEDS: DICYCLOMINE 10 MG CAP PO SCH (08:00)
[2020-06-15] MEDS: GABAPENTIN 400 MG CAP PO SCH ×2 (08:00→15:49)
[2020-06-15] MEDS: INSULIN ASPART (NovoLOG) 100 UNIT/ML VIAL SQ SCH ×2 (08:00→12:50)
[2020-06-15] MEDS: HYDROcodone/APAP 5-325MG 1 EACH TAB PO PRN (08:06)
--- NOTE | 2020-06-15 10:33 | P.DS ---
Providers Date of admission: 06/10/20 17:22 Expected date of discharge: 06/15/20 Attending physician: Marcos Shi MD Consults: 06/11/20 10:16 Consult Physician Routine Consulting Provider: Anita Sharma Consult Reason/Comments: heel wound, abx recommendations Do you want consulting provider notified?: Yes Primary care physician: Rosemarie Pathak Hospital Course: Final Diagnoses: (1) Non-pressure chronic ulcer of left heel associated with type 2 diabetes mellitus and midfoot with fat layer exposed, now with osteomyelitis as reported per bone scan. Culture with MSSA and staph. Current Visit: Yes Status: Acute Code(s): L97.422 - NON-PRS CHR ULCER OF LEFT HEEL AND MIDFOOT W FAT LAYER EXPOS SNOMED Code(s): 064618407- Current Visit: Yes Status: Acute Code(s): E11.621 - TYPE 2 DIABETES MELLITUS WITH FOOT ULCER; L97.502 - NON-PRS CHRONIC ULCER OTH PRT UNSP FOOT W FAT LAYER EXPOSED SNOMED Code(s): 0509120243601 (2) Hypertension Current Visit: Yes Status: Acute Code(s): I10 - ESSENTIAL (PRIMARY) HYPERTENSION SNOMED Code(s): 86498408 (3) Diabetic neuropathy Current Visit: Yes Status: Acute Code(s): E11.40 - TYPE 2 DIABETES MELLITUS WITH DIABETIC NEUROPATHY, UNSP SNOMED Code(s): 544353645 (4) Peripheral vascular disease Current Visit: Yes Status: Acute Code(s): I73.9 - PERIPHERAL VASCULAR DISEASE, UNSPECIFIED SNOMED Code(s): 745951058 (5) diabetes mellitus type 2 (6) COPD, stable (7) fibromyalgia (8) nicotine dependence, smoking cessation reinforced Hospital course:Wiley Gonzalez is a 60 yo F with PMH of T2DM, COPD, tobacco and c ocaine abuse who presented to the hospital with worsening L heel ulceration. She has been following with her PCP and the wound center for more than a month and despite santyl and wraps her ulcer has continued to worsen and she now has a new L midfoot ulceration. She was seen in the wound center on Monday and recommended to come to the hospital. She was recommended to stay off the foot but has not been able to do this. She does have neuropathy of both feet. On presentation she was hypertensive, WBC and BMP unremarkable. 06/12/2020 maintained on Unasyn as per infectious disease. Cultures pending. Denies fever or chills. Consuming 75-100% of meals, blood sugars ranging high 170s to 220s. Pain controlled. Denies chest pain, palpitations or shortness of breath. Afebrile, normal WBC. Maintained on IV antibiotics of Unasyn .Significant clinical improvement. Patient will be discharged to [facility] rehab today in a stable condition with her prognosis pending PICC line placement, final DC antibiotic recommendations, clearance as per ID. Wound care as per surgery/Wound Care team. The impression and plan of care has been dictated as directed. : I performed a history and examination of this patient, discussed the same with the dictator. I agree with the dictator's note ,documented as a scribe. Any additional findings or plans will be noted. Patient Condition at Discharge: Stable Plan - Discharge Summary Discharge Rx Participant: No New Discharge Prescriptions: New Ipratropium-Albuterol Nebulize [Duoneb 0.5 mg-3 mg/3 ml Soln] 3 ml INHALATION RT-TID PRN ml PRN Reason: Shortness Of Breath Or Wheezing INSULIN LISPRO (HumaLOG) [humaLOG] 0 unit SQ ACHS #1 vial Insulin Detemir (Levemir) [Levemir] 30 unit SQ HS syr HYDROcodone/APAP 5-325MG [Estelline 5-325] 1 each PO Q6HR PRN #12 tab PRN Reason: Pain Collagenase [Santyl] 1 applic TOPICAL DAILY applic lisinopriL [Zestril] 10 mg PO DAILY tab Continue Collagenase [Santyl] 1 applic TOPICAL DAILY Dicyclomine [Bentyl] 10 mg PO BID Gabapentin [Neurontin] 400 mg PO TID #9 cap Discontinued traMADol HCL [Ultram] 50 mg PO QID Insulin Glargine,Hum.rec.anlog [Lantus Solostar] 70 unit SQ HS Cyclobenzaprine [Flexeril] 10 mg PO HS Discharge Medication List Collagenase [Santyl] 1 applic TOPICAL DAILY 06/10/20 [History] Dicyclomine [Bentyl] 10 mg PO BID 06/10/20 [History] Collagenase [Santyl] 1 applic TOPICAL DAILY applic 06/15/20 [Rx] Gabapentin [Neurontin] 400 mg PO TID #9 cap 06/15/20 [Rx] HYDROcodone/APAP 5-325MG [Estelline 5-325] 1 each PO Q6HR PRN #12 tab 06/15/20 [Rx] INSULIN LISPRO (HumaLOG) [humaLOG] 0 unit SQ ACHS #1 vial 06/15/20 [Rx] Insulin Detemir (Levemir) [Levemir] 30 unit SQ HS syr 06/15/20 [Rx] Ipratropium-Albuterol Nebulize [Duoneb 0.5 mg-3 mg/3 ml Soln] 3 ml INHALATION RT-TID PRN ml 06/15/20 [Rx] lisinopriL [Zestril] 10 mg PO DAILY tab 06/15/20 [Rx] Follow up Appointment(s)/Referral(s): Rosemarie Pathak DO [Primary Care Provider] - 1 Week (After DC from subacute rehab) Activity/Diet/Wound Care/Special Instructions: [facility] subacute rehab .PICC line placement pending. Pending DC antibiotics, clearance from ID. Wound care as per wound care team. CBC, BMP in 3 days
[2020-06-15 11:28] LABS: Glucose,Whole Blood 174 mg/dL (75-99)
[2020-06-15 11:59] VITALS: BP 144/85; PULSE 76; TEMP 98.2
--- NOTE | 2020-06-15 12:26 | PN ---
PROGRESS NOTE DATE OF SERVICE: 06/14/2020 REASON FOR FOLLOWUP: Left posterior leg wound, underlying osteomyelitis. INTERVAL HISTORY: The patient is currently afebrile. The patient is breathing comfortably. Patient denies having any chest pain or shortness of breath. No cough. No nausea, vomiting, abdominal pain. Pain to the left foot wound area. PHYSICAL EXAMINATION: Blood pressure 149/96, pulse 79, temperature 98.1. She is 94% on room air. General description: The patient is a middle-aged female lying in bed in no distress. Respiratory system: Unlabored breathing, clear to auscultation anteriorly. Heart S1, S2. Regular rate and rhythm. ABDOMEN: Soft, no tenderness. Left leg is currently dressed up. No drainage on the dressing. LABS: White count normalized. DIAGNOSTIC IMPRESSION AND PLAN: Patient with left posterior leg wound, nonhealing with underlying osteomyelitis culture with strep and MSSA. She is covered with the Unasyn. She will get a PICC line and continue with Unasyn 3 grams q.8 to finish a 6 week course of therapy and close outpatient followup. MMODL / IJN: [id number] /
[2020-06-15] MEDS ORDERED: LIDOCAINE 1% INJ 10MG/ML (20 ML MDV) ONE (14:37)
[2020-06-15] MEDS ORDERED: LIDOCAINE 1% INJ 10MG/ML (20 ML MDV) SQ ONE (14:48)
--- NOTE | 2020-06-15 16:59 | PN ---
PROGRESS NOTE DATE OF SERVICE: 06/15/2020 REASON FOR FOLLOWUP: Left diabetic foot infection with osteomyelitis. INTERVAL HISTORY: The patient is currently afebrile. The patient is breathing comfortably. The patient denies having any chest pain. No shortness of breath or cough. No nausea, no abdominal pain and some pain with left foot wound area. PHYSICAL EXAMINATION: Blood pressure 144/85 with a pulse of 76, temperature 98.2, she is 95% on room air. General description is a middle-aged female, up in the bed in no distress. RESPIRATORY SYSTEM: Unlabored breathing clear to auscultation anteriorly. HEART: S1, S2. Regular rate and rhythm. ABDOMEN: Soft, no tenderness. Left heel wound is contained, no obvious drainage on the dressing. LABS: No new labs have been obtained today. DIAGNOSTIC IMPRESSION AND PLAN: Patient with left heel diabetic foot infection with concern for underlying osteomyelitis. Culture has been positive for MSSA strep and anaerobes. She will continue with Unasyn 3 g q.6 hours. Total of 6 weeks local wound care per Surgery, weekly monitor CBC, BMP, sedimentation rate and close outpatient followup. MMODL / IJN: [id number] /
== END 2020-06-15 17:26 | DRG 638 ==
LOC: EC 12:11 → INTOOBSV 13:10 → 6NMEDSUR 13:10 → OBSVTOIN 17:22
PROVIDERS: ADMIT Family Medicine; ATTEND Family Medicine
PROC: 02HV33Z Insertion of Infusion Device into Superior Vena Cava, Percutaneous Approach (ICD-10-PCS; principal; 2020-06-15 11:40)
DX: E11.69 Type 2 diabetes mellitus with other specified complication (principal); L97.422 Non-pressure chronic ulcer of left heel and midfoot with fat layer exposed; M86.172 Other acute osteomyelitis, left ankle and foot; Z68.41 Body mass index [BMI] 40.0-44.9, adult; B95.61 Methicillin susceptible Staphylococcus aureus infection as the cause of diseases classified elsewhere; E11.40 Type 2 diabetes mellitus with diabetic neuropathy, unspecified; E11.51 Type 2 diabetes mellitus with diabetic peripheral angiopathy without gangrene; E11.621 Type 2 diabetes mellitus with foot ulcer; E11.628 Type 2 diabetes mellitus with other skin complications; F14.10 Cocaine abuse, uncomplicated; Z71.6 Tobacco abuse counseling; F17.210 Nicotine dependence, cigarettes, uncomplicated; I10 Essential (primary) hypertension; J44.9 Chronic obstructive pulmonary disease, unspecified; M79.7 Fibromyalgia; Z79.899 Other long term (current) drug therapy; Z82.49 Family history of ischemic heart disease and other diseases of the circulatory system; Z83.3 Family history of diabetes mellitus; Z90.710 Acquired absence of both cervix and uterus; K58.9 Irritable bowel syndrome, unspecified; E11.610 Type 2 diabetes mellitus with diabetic neuropathic arthropathy; Z20.828 Contact with and (suspected) exposure to other viral communicable diseases; Z79.4 Long term (current) use of insulin; E66.9 Obesity, unspecified; Z79.891 Long term (current) use of opiate analgesic; Z90.89 Acquired absence of other organs; Z96.653 Presence of artificial knee joint, bilateral; Z88.5 Allergy status to narcotic agent; Z88.8 Allergy status to other drugs, medicaments and biological substances; Z91.040 Latex allergy status
CPT/HCPCS: 36415; 36573; 78315; 80048; 80053; 81001; 84145; 85025; 85652; 86140; 87040; 94640; 99284

== ENCOUNTER 2020-07-03 19:00 | Inpatient (IN) | payer MEDICARE, OTHER ==
--- NOTE | 2020-07-03 19:21 | ED ---
SOB HPI - General Stated Complaint: Increased Edema Time Seen by Provider: 07/03/20 19:09 Source: RN notes reviewed, old records reviewed Limitations: no limitations - History of Present Illness Initial Comments: This is a 60-year-old female to the ER for evaluation regarding not feeling well. Patient was sent in for fluid overload. Patient has significant swelling of lower extremities difficulty breathing and overall edema. Patient herself denies any complaints was sent to ER by a [address] [place] [address] facility for evaluation. On reevaluation patient does admit to some shortness of breath and some pain in b oth legs MD Complaint: shortness of breath -: days(s) Severity: mild Severity scale (1-10): 3 Consistency: constant Improves With: nothing Worsens With: nothing Known History Of: congestive heart failure Context: recent URI Associated Symptoms: denies other symptoms Treatments Prior to Arrival: none - Related Data Home Medications Medication Instructions Recorded Confirmed Dicyclomine [Bentyl] 10 mg PO BID 06/10/20 06/10/20 Previous Rx's Medication Instructions Recorded Ampicillin-Sulbactam [Unasyn] 3 gm IVPB Q6HR #150 vial 06/15/20 Collagenase [Santyl] 1 applic TOPICAL DAILY applic 06/15/20 Gabapentin [Neurontin] 400 mg PO TID #9 cap 06/15/20 HYDROcodone/APAP 5-325MG [[place] 1 each PO Q6HR PRN #12 tab 06/15/20 5-325] INSULIN LISPRO (HumaLOG) [humaLOG] 0 unit SQ ACHS #1 vial 06/15/20 Insulin Detemir (Levemir) [Levemir] 30 unit SQ HS syr 06/15/20 Ipratropium-Albuterol Nebulize 3 ml INHALATION RT-TID PRN ml 06/15/20 [Duoneb 0.5 mg-3 mg/3 ml Soln] lisinopriL [Zestril] 10 mg PO DAILY tab 06/15/20 Allergies Allergy/AdvReac Type Severity Reaction Status Date / Time adhesive tape Allergy Rash/Hives Verified 06/10/20 14:54 diphenhydramine Allergy Rash/Hives Verified 06/10/20 14:54 [From Benadryl] latex Allergy Rash/Hives Verified 06/10/20 14:54 oxycodone [From Percodan] AdvReac Altered Verified 06/10/20 14:54 Mental Status prednisone AdvReac Increased Verified 06/10/20 14:54 Blood Sugar Review of Systems ROS Statement: Those systems with pertinent positive or pertinent negative responses have been documented in the HPI. ROS Other: All systems not noted in ROS Statement are negative. Past Medical History Past Medical History: Asthma, COPD, Diabetes Mellitus, Fibromyalgia Additional Past Medical History / Comment(s): IBS History of Any Multi-Drug Resistant Organisms: None Reported Past Surgical History: Hysterectomy, Joint Replacement, Tonsillectomy Additional Past Surgical History / Comment(s): carpal tunnel, bilateral knees, L rotator cuff Past Anesthesia/Blood Transfusion Reactions: No Reported Reaction Past Psychological History: No Psychological Hx Reported Smoking Status: Current every day smoker Past Alcohol Use History: None Reported Past Drug Use History: None Reported - Past Family History Mother Family Medical History: Cancer, Coronary Artery Disease (CAD), Diabetes Mellitus Father Family Medical History: Coronary Artery Disease (CAD), Diabetes Mellitus, Renal Disease General Exam General appearance: alert, in no apparent distress, obese Head exam: Present: atraumatic, normocephalic, normal inspection Eye exam: Present: normal appearance, PERRL, EOMI. Absent: scleral icterus, conjunctival injection, periorbital swelling ENT exam: Present: normal exam, mucous membranes moist Neck exam: Present: normal inspection. Absent: tenderness, meningismus, lymphadenopathy Respiratory exam: Present: normal lung sounds bilaterally. Absent: respiratory distress, wheezes, rales, rhonchi, stridor Cardiovascular Exam: Present: regular rate, normal rhythm, normal heart sounds. Absent: systolic murmur, diastolic murmur, rubs, gallop, clicks GI/Abdominal exam: Present: soft, normal bowel sounds. Absent: distended, tenderness, guarding, rebound, rigid Extremities exam: Present: normal inspection, full ROM, normal capillary refill. Absent: tenderness, pedal edema, joint swelling, calf tenderness Back exam: Present: normal inspection Neurological exam: Present: alert, oriented X3, CN II-XII intact Psychiatric exam: Present: normal affect, normal mood Skin exam: Present: warm, dry, intact, normal color. Absent: rash Course Vital Signs 07/03/20 19:22 Temperature 98.1 F Pulse Rate 76 Respiratory 16 Rate Blood Pressure 128/105 O2 Sat by Pulse 94 L Oximetry - Reevaluation(s) Reevaluation #1: 07/03/20 19:35 Medical record is reviewed Medical Decision Making - Medical Decision Making 52 female to the ER for fluid overload CHF oh edema and swelling. We'll admit for diuresis - Lab Data Result diagrams: 07/03/20 19:54 07/03/20 19:54 Lab Results 07/03/20 07/03/20 07/03/20 Range/Units 19:54 19:54 19:54 WBC 6.6 (3.8-10.6) k/uL RBC 4.21 (3.80-5.40) m/uL Hgb 11.6 (11.4-16.0) gm/dL Hct 39.1 (34.0-46.0) % MCV 92.8 (80.0-100.0) fL MCH 27.5 (25.0-35.0) pg MCHC 29.6 L (31.0-37.0) g/dL RDW 16.5 H (11.5-15.5) % Plt Count 178 (150-450) k/uL Neutrophils % 75 % Lymphocytes % 14 % Monocytes % 6 % Eosinophils % 3 % Basophils % 1 % Neutrophils # 4.9 (1.3-7.7) k/uL Lymphocytes # 0.9 L (1.0-4.8) k/uL Monocytes # 0.4 (0-1.0) k/uL Eosinophils # 0.2 (0-0.7) k/uL Basophils # 0.1 (0-0.2) k/uL Hypochromasia Marked Anisocytosis Slight PT 10.9 (9.0-12.0) sec INR 1.1 (<1.2) APTT 24.2 (22.0-30.0) sec Sodium 138 (137-145) mmol/L Potassium 6.4 H* (3.5-5.1) mmol/L Chloride 104 (98-107) mmol/L Carbon Dioxide 30 (22-30) mmol/L Anion Gap 4 mmol/L BUN 55 H (7-17) mg/dL Creatinine 1.16 H (0.52-1.04) mg/dL Est GFR (CKD-EPI)AfAm 60 (>60 ml/min/1.73 sqM) Est GFR (CKD-EPI)NonAf 52 (>60 ml/min/1.73 sqM) Glucose 191 H (74-99) mg/dL Calcium 8.6 (8.4-10.2) mg/dL Phosphorus 4.6 H (2.5-4.5) mg/dL Magnesium 2.4 H (1.6-2.3) mg/dL Total Bilirubin 0.4 (0.2-1.3) mg/dL AST 17 (14-36) U/L ALT 13 (4-34) U/L Alkaline Phosphatase 107 (38-126) U/L Creatine Kinase 66 (30-135) U/L Troponin I (0.000-0.034) ng/mL NT-Pro-B Natriuret Pep pg/mL Total Protein 6.9 (6.3-8.2) g/dL Albumin 3.3 L (3.5-5.0) g/dL 07/03/20 07/03/20 Range/Units 19:54 19:54 WBC (3.8-10.6) k/uL RBC (3.80-5.40) m/uL Hgb (11.4-16.0) gm/dL Hct (34.0-46.0) % MCV (80.0-100.0) fL MCH (25.0-35.0) pg MCHC (31.0-37.0) g/dL RDW (11.5-15.5) % Plt Count (150-450) k/uL Neutrophils % % Lymphocytes % % Monocytes % % Eosinophils % % Basophils % % Neutrophils # (1.3-7.7) k/uL Lymphocytes # (1.0-4.8) k/uL Monocytes # (0-1.0) k/uL Eosinophils # (0-0.7) k/uL Basophils # (0-0.2) k/uL Hypochromasia Anisocytosis PT (9.0-12.0) sec INR (<1.2) APTT (22.0-30.0) sec Sodium (137-145) mmol/L Potassium (3.5-5.1) mmol/L Chloride (98-107) mmol/L Carbon Dioxide (22-30) mmol/L Anion Gap mmol/L BUN (7-17) mg/dL Creatinine (0.52-1.04) mg/dL Est GFR (CKD-EPI)AfAm (>60 ml/min/1.73 sqM) Est GFR (CKD-EPI)NonAf (>60 ml/min/1.73 sqM) Glucose (74-99) mg/dL Calcium (8.4-10.2) mg/dL Phosphorus (2.5-4.5) mg/dL Magnesium (1.6-2.3) mg/dL Total Bilirubin (0.2-1.3) mg/dL AST (14-36) U/L ALT (4-34) U/L Alkaline Phosphatase (38-126) U/L Creatine Kinase (30-135) U/L Troponin I <0.012 (0.000-0.034) ng/mL NT-Pro-B Natriuret Pep 3470 pg/mL Total Protein (6.3-8.2) g/dL Albumin (3.5-5.0) g/dL - EKG Data -: EKG Interpreted by Me (EKG shows sinus rhythm 74 ID 134 QRS 78 QTc 419) - Radiology Data Radiology results: report reviewed (Chest x-ray shows mild CHF), image reviewed Disposition Clinical Impression: Wound of left foot, Anasarca Disposition: ADMITTED IP TO THIS HOSP Condition: Fair Is patient prescribed a controlled substance at d/c from ED?: No Referrals: Rosemarie Pathak DO [Primary Care Provider] - 1-2 days
[2020-07-03 20:08] LABS: Anisocytosis Slight; Basophils # (A) 0.1 k/uL (0-0.2); Basophils % (A) 1 %; Eosinophils # (A) 0.2 k/uL (0-0.7); Eosinophils % (A) 3 %; HCT 39.1 % (34.0-46.0); HGB 11.6 gm/dL (11.4-16.0); Hypochromasia Marked; Lymphocytes # (A) 0.9 k/uL (1.0-4.8); Lymphocytes % (A) 14 %; MCH 27.5 pg (25.0-35.0); MCHC 29.6 g/dL (31.0-37.0); MCV 92.8 fL (80.0-100.0); Mean Platelet Volume 7.8; Monocytes # (A) 0.4 k/uL (0-1.0); Monocytes % (A) 6 %; Neutrophils # (A) 4.9 k/uL (1.3-7.7); Neutrophils % (A) 75 %; Platelet Count 178 k/uL (150-450); RBC 4.21 m/uL (3.80-5.40); RDW 16.5 % (11.5-15.5); WBC 6.6 k/uL (3.8-10.6)
[2020-07-03 20:17] LABS: Albumin 3.3 g/dL (3.5-5.0); Calcium 8.6 mg/dL (8.4-10.2); Magnesium 2.4 mg/dL (1.6-2.3); Phosphorus 4.6 mg/dL (2.5-4.5); Total Bilirubin 0.4 mg/dL (0.2-1.3); Total Protein 6.9 g/dL (6.3-8.2)
[2020-07-03 20:28] LABS: INR 1.1 (<1.2); Partial Thromboplastin Time 24.2 sec (22.0-30.0); Prothrombin Time 10.9 sec (9.0-12.0)
[2020-07-03 20:40] LABS: Potassium 6.4 mmol/L (3.5-5.1)
--- NOTE | 2020-07-03 20:55 | XR ---
EXAMINATION TYPE: XR chest 2V DATE OF EXAM: 07/03/2020 COMPARISON: NONE HISTORY: Weakness TECHNIQUE: FINDINGS: There is some blunting of the costophrenic angles. There is fluid in the fissures. Heart is probably enlarged. Exam is limited by patient's size. There is mild pulmonary congestion. IMPRESSION: There is evidence for new mild congestive heart failure with pleural fluid compared to ol d exam.
[2020-07-03] MEDS ORDERED: DEXTROSE 50% SYRINGE 50 ML IVP STA (20:57)
[2020-07-03] MEDS ORDERED: SODIUM BICARB 8.4% 50 ML SYR (1 MEQ/ML) IV STA (20:57)
[2020-07-03] MEDS ORDERED: INSULIN REGULAR 100 UNIT/ML VIAL IV ONE (20:57)
[2020-07-03] MEDS ORDERED: FUROSEMIDE 10 MG/ML 4 ML VIAL IV ONE (21:00)
[2020-07-03 22:45] LABS: Glucose,Whole Blood 159 mg/dL (75-99)
[2020-07-04 06:37] LABS: Glucose,Whole Blood 133 mg/dL (75-99)
[2020-07-04] MEDS: INSULIN ASPART (NovoLOG) 100 UNIT/ML VIAL SQ SCH ×4 (06:49→21:13)
[2020-07-04 07:50] LABS: Anisocytosis Slight; Basophils # (A) 0.1 k/uL (0-0.2); Basophils % (A) 1 %; Eosinophils # (A) 0.2 k/uL (0-0.7); Eosinophils % (A) 3 %; HCT 38.9 % (34.0-46.0); HGB 11.2 gm/dL (11.4-16.0); Hypochromasia Marked; Lymphocytes % (A) 17 %; MCH 27.1 pg (25.0-35.0); MCHC 28.9 g/dL (31.0-37.0); MCV 93.7 fL (80.0-100.0); Mean Platelet Volume 8.2; Monocytes # (A) 0.3 k/uL (0-1.0); Monocytes % (A) 5 %; Neutrophils # (A) 4.3 k/uL (1.3-7.7); Neutrophils % (A) 72 %; Platelet Count 162 k/uL (150-450); RBC 4.15 m/uL (3.80-5.40); RDW 16.6 % (11.5-15.5)
[2020-07-04 07:58] LABS: Calcium 8.5 mg/dL (8.4-10.2)
[2020-07-04 08:07] LABS: Potassium 6.3 mmol/L (3.5-5.1)
[2020-07-04] MEDS: AMPICILLIN-SULBACTAM 1.5 GM in SODIUM CHLORIDE 0.9% 50 ML IVPB SCH ×2 (09:24→18:21)
[2020-07-04] MEDS ORDERED: DEXTROSE 50% SYRINGE 50 ML IVP STA ×2 (09:43→21:04)
[2020-07-04] MEDS ORDERED: INSULIN REGULAR 100 UNIT/ML VIAL IV ONE ×2 (09:43→21:02)
--- NOTE | 2020-07-04 09:46 | P.NPCON ---
History of Present Illness - Reason for Consult acute renal failure, hyperkalemia - History of Present Illness reason for consultation: Acute kidney injury and hyperkalemia History of present illness: Patient is a 60-year-old female seen in renal consultation for acute kidney injury and hyperkalemia. Patient presents from rehab facility with worsening edema and shortness of breath. She was also noted to have high potassium. Potassium level was 6.4 on admission. She is currently maintained on IV Lasix 40 mg twice daily. She admits to good urine output. No hematuria or dysuria. No vomiting or diarrhea. No fever or chills. No cough. Patient states she is receiving antibiotics for left foot diabetic wound. creatinine was 1.16 on admission and is 1.13 today. Potassium level 6.3 this morning. Blood sugars controlled. No evidence of acidosis. she does have long-standing history of diabetes mellitus. She is maintained on insulin. blood pressure controlled. denies use of nonsteroidals. I don't see BRENTNO inhibitor or an angiotensin receptor lyle and her home medications. No chest pain. No abdominal pain. Vital signs are stable. General: The patient appeared well nourished and normally developed. HEENT: Head exam is unremarkable. Neck is without jugular venous distension. LUNGS: Breath sounds decreased. HEART: Rate and Rhythm are regular. ABDOMEN: soft, nontender. Obese. EXTREMITITES: 2+ edema. Chronic skin changes noted. Left foot drop. Past Medical History Past Medical History: Asthma, COPD, Diabetes Mellitus, Fibromyalgia Additional Past Medical History / Comment(s): IBS History of Any Multi-Drug Resistant Organisms: None Reported Past Surgical History: Hysterectomy, Joint Replacement, Tonsillectomy Additional Past Surgical History / Comment(s): carpal tunnel, bilateral knees, L rotator cuff PICC line left upper arm removed currently one in RT upper arm Past Anesthesia/Blood Transfusion Reactions: No Reported Reaction Past Psychological History: No Psychological Hx Reported Smoking Status: Former smoker Past Alcohol Use History: None Reported Past Drug Use History: None Reported - Past Family History Mother Family Medical History: Cancer, Coronary Artery Disease (CAD), Diabetes Mellitus Father Family Medical History: Coronary Artery Disease (CAD), Diabetes Mellitus, Renal Disease Medications and Allergies Home Medications Medication Instructions Recorded Confirmed Type Dicyclomine [Bentyl] 10 mg PO BID@0900,2100 06/10/20 07/03/20 History Ipratropium-Albuterol Nebulize 3 ml INHALATION RT-TID PRN ml 06/15/20 07/03/20 Rx [Duoneb 0.5 mg-3 mg/3 ml Soln] Ampicillin Sodium/Sulbactam Na 1.5 gm IV Q8H 07/03/20 07/03/20 History [Ampicillin-Sulbactam 1.5 gm Vl] Fluconazole [Diflucan] 200 mg PO DAILY@0900 07/03/20 07/03/20 History Furosemide [Lasix] 40 mg PO DAILY@0600 07/03/20 07/03/20 History Gabapentin [Neurontin] 400 mg PO BID@0900,2100 07/03/20 07/03/20 History HYDROcodone/APAP 5-325MG [[place] 1 tab PO Q6H PRN 07/03/20 07/03/20 History 5-325] INSULIN LISPRO (HumaLOG) [humaLOG] See Protocol SQ ACHS 07/03/20 07/03/20 History Insulin Glargine,Hum.rec.anlog 30 unit SQ HS@209907/03/20 07/03/20 History [Basaglar Kwikpen U-100] Pro-Stat Sugar Free Awc Suppl 30 ml PO DAILY@0900 07/03/20 07/03/20 History Allergies Allergy/AdvReac Type Severity Reaction Status Date / Time adhesive tape Allergy Rash/Hives Verified 07/03/20 21:24 diphenhydramine Allergy Rash/Hives Verified 07/03/20 21:24 [From Benadryl] latex Allergy Rash/Hives Verified 07/03/20 21:24 oxycodone [From Percodan] AdvReac Altered Verified 07/03/20 21:24 Mental Status prednisone AdvReac Increased Verified 07/03/20 21:24 Blood Sugar Physical Exam Vitals: Vital Signs Temp Pulse Pulse Resp BP BP Pulse Ox 07/04/20 04:00 80 20 134/80 96 07/04/20 00:00 20 07/03/20 21:21 97.9 F 94 20 122/75 95 07/03/20 19:22 98.1 F 76 16 128/105 94 L Intake and Output 07/03/20 07/04/20 07/04/20 22:59 06:59 14:59 Other: Voiding Method Bedpan # Voids 3 Weight 135.171 kg 131.6 kg Results - Lab Results Most recent lab results Calcium 8.5 mg/dL (8.4-10.2) 07/04/20 07:29 Phosphorus 4.6 mg/dL (2.5-4.5) H 07/03/20 19:54 Magnesium 2.4 mg/dL (1.6-2.3) H 07/03/20 19:54 07/04/20 07:29 07/04/20 07:29 Assessment and Plan Plan: assessment: 1. Acute kidney injury mostly prerenal secondary to cardiorenal syndrome. Rule out urinary retention. Creatinine 1.13 today. 2. Volume overload. 3. Hyperkalemia secondary to acute kidney injury. Rule out urinary retention. 4. Insulin-dependent diabetes mellitus. 5. Morbid obesity. 6. Left foot diabetic wound maintained on antibiotics. plan: maintain IV Lasix 40 mg twice daily. 10 units of IV regular insulin with an amp of D50 now. Check bladder scan and to insert Mora catheter if more than 300 mL urine present. Check renal ultrasound. Check urinalysis. Low potassium diet. Repeat potassium level at 2 PM today. Thank you for the consultation. I will continue to follow the patient with you during her hospital stay.
--- NOTE | 2020-07-04 10:26 | US ---
EXAMINATION TYPE: US kidneys/renal and bladder DATE OF EXAM: 07/04/2020 COMPARISON: CT 2017 CLINICAL HISTORY: milli. Patient's skin in thickened and hardened, very difficult to penetrate EXAM MEASUREMENTS: Right Kidney: 12.7 x 5.2 x 4.9 cm Left Kidney: Unable to visualize. Right Kidney: Limited visualization, visualized portions wnl. Left Kidney: Unable to visualize. Bladder: Only able to see in the transverse plane, appears wnl. Bilateral Jets seen: no Incidental note is made of right pleural effusion. No evident ascites. Liver shows possible coarse echotexture, consider hepatic steatosis IMPRESSION: Exam is limited due to patient body habitus, no evident right-sided hydronephrosis, additional findin gs above.
[2020-07-04 12:44] LABS: Glucose,Whole Blood 150 mg/dL (75-99)
[2020-07-04] MEDS: FUROSEMIDE 10 MG/ML 4 ML VIAL IV SCH ×2 (13:28→21:12)
[2020-07-04 16:43] LABS: Glucose,Whole Blood 158 mg/dL (75-99)
[2020-07-04 20:32] LABS: Glucose,Whole Blood 209 mg/dL (75-99)
[2020-07-04] MEDS: HYDROcodone/APAP 5-325MG 1 EACH TAB PO PRN (21:55)
[2020-07-05] MEDS ORDERED: AMPICILLIN-SULBACTAM 3 GM in SODIUM CHLORIDE 0.9% 50 ML IVPB SCH ×2
--- NOTE | 2020-07-05 00:26 | P.CONS ---
History of Present Illness - Reason for Consult Consult date: 07/04/20 Left heel diabetic foot infection with osteomyelitis Requesting physician: Christina Rojas - Chief Complaint Increasing shortness of breath and abnormal labs x 1 day - History of Present Illness Patient is a 60-year-old female who [facility] patient with a chronic nonhealing wound to the left heel area with evidence of underlying osteomyelitis culture done on last admission were positive for MSSA strep and anaerobes and the patient was advised Unasyn 3 g every 6 hours the patient's currently receiving at the intermediate, patient has been sent to the ER for evaluation of increasing shortness of breath and concern for fluid overload and abnormal labs as the patient did have evidence of elevated creatinine and potassium, patient on presentation hospital was afebrile did have a normal white count patient creatinine was 1.3 the blood pressure was elevated at 6.3 patient is currently being managed by nephrology for her e levated potassium, patient has been continued on Unasyn 3 g every 8 hours infectious disease was consulted for further management of his wound and antibiotics, patient currently denies having any pain to the left heel wound area to nausea no vomiting no abdominal pain or any diarrhea Review of Systems Positive point has been mentioned in the HPI rest of the systems are negative Past Medical History Past Medical History: Asthma, COPD, Diabetes Mellitus, Fibromyalgia Additional Past Medical History / Comment(s): IBS History of Any Multi-Drug Resistant Organisms: None Reported Past Surgical History: Hysterectomy, Joint Replacement, Tonsillectomy Additional Past Surgical History / Comment(s): carpal tunnel, bilateral knees, L rotator cuff PICC line left upper arm removed currently one in RT upper arm Past Anesthesia/Blood Transfusion Reactions: No Reported Reaction Past Psychological History: No Psychological Hx Reported Smoking Status: Former smoker Past Alcohol Use History: None Reported Past Drug Use History: None Reported - Past Family History Mother Family Medical History: Cancer, Coronary Artery Disease (CAD), Diabetes Mellitus Father Family Medical History: Coronary Artery Disease (CAD), Diabetes Mellitus, Renal Disease Medications and Allergies Home Medications Medication Instructions Recorded Confirmed Type Dicyclomine [Bentyl] 10 mg PO BID@0900,2100 06/10/20 07/03/20 History Ipratropium-Albuterol Nebulize 3 ml INHALATION RT-TID PRN ml 06/15/20 07/03/20 Rx [Duoneb 0.5 mg-3 mg/3 ml Soln] Ampicillin Sodium/Sulbactam Na 1.5 gm IV Q8H 07/03/20 07/03/20 History [Ampicillin-Sulbactam 1.5 gm Vl] Fluconazole [Diflucan] 200 mg PO DAILY@0900 07/03/20 07/03/20 History Furosemide [Lasix] 40 mg PO DAILY@0600 07/03/20 07/03/20 History Gabapentin [Neurontin] 400 mg PO BID@0900,2100 07/03/20 07/03/20 History HYDROcodone/APAP 5-325MG [[place] 1 tab PO Q6H PRN 07/03/20 07/03/20 History 5-325] INSULIN LISPRO (HumaLOG) [humaLOG] See Protocol SQ ACHS 07/03/20 07/03/20 History Insulin Glargine,Hum.rec.anlog 30 unit SQ HS@2100 07/03/20 07/03/20 History [Basaglar Kwikpen U-100] Pro-Stat Sugar Free Awc Suppl 30 ml PO DAILY@0900 07/03/20 07/03/20 History Allergies Allergy/AdvReac Type Severity Reaction Status Date / Time adhesive tape Allergy Rash/Hives Verified 07/03/20 21:24 diphenhydramine Allergy Rash/Hives Verified 07/03/20 21:24 [From Benadryl] latex Allergy Rash/Hives Verified 07/03/20 21:24 oxycodone [From Percodan] AdvReac Altered Verified 07/03/20 21:24 Mental Status prednisone AdvReac Increased Verified 07/03/20 21:24 Blood Sugar Physical Exam Vitals: Vital Signs Temp Pulse Resp BP Pulse Ox 07/04/20 16:00 85 20 126/62 96 07/04/20 12:00 75 18 129/80 99 07/04/20 08:00 97.4 F L 75 18 131/93 96 07/04/20 04:00 80 20 134/80 96 07/04/20 00:00 20 Intake and Output 07/04/20 07/04/20 07/04/20 06:59 14:59 22:59 Intake Total 240 360 Output Total 150 300 Balance 90 60 Intake: Oral 240 360 Output: Urine 150 300 Uretheral (Mora) 150 Other: Voiding Method Bedpan # Voids 3 2 # Bowel Movements 2 Weight 131.6 kg 131.6 kg GENERAL DESCRIPTION: Middle-aged female lying in bed, no distress. No tachypnea or accessory muscle of respiration use. HEENT: Shows Pallor , no scleral icterus. Oral mucous membrane is dry. No pharyngeal erythema or thrush NECK: Trachea central, no thyromegaly. LUNGS: Unlabored breathing. Decreased potassium at the base. No wheeze or crackle. HEART: S1, S2, regular rate and rhythm. No loud murmur ABDOMEN: Soft, no tenderness , guarding or rigidity, no organomegaly EXTREMITIES: Left heel wound with no significant slough tissue swelling no significant redness or foul-smelling drainage SKIN: No rash, no masses palpable. NEUROLOGICAL: The patient is awake, alert, oriented x3, mood and affect normal. Results CBC & Chem 7: 07/04/20 07:29 07/04/20 19:58 Labs: Abnormal Lab Results - Last 24 Hours (Table) 07/03/20 07/04/20 07/04/20 Range/Units 22:34 06:35 07:29 Hgb 11.2 L (11.4-16.0) gm/dL MCHC 28.9 L (31.0-37.0) g/dL RDW 16.6 H (11.5-15.5) % Potassium (3.5-5.1) mmol/L BUN (7-17) mg/dL Creatinine (0.52-1.04) mg/dL Glucose (74-99) mg/dL POC Glucose (mg/dL) 159 H 133 H (75-99) mg/dL 07/04/20 07/04/20 07/04/20 Range/Units 07:29 12:43 14:03 Hgb (11.4-16.0) gm/dL MCHC (31.0-37.0) g/dL RDW (11.5-15.5) % Potassium 6.3 H* 6.0 H (3.5-5.1) mmol/L BUN 56 H (7-17) mg/dL Creatinine 1.13 H (0.52-1.04) mg/dL Glucose 128 H (74-99) mg/dL POC Glucose (mg/dL) 150 H (75-99) mg/dL 07/04/20 07/04/20 07/04/20 Range/Units 16:42 19:58 20:30 Hgb (11.4-16.0) gm/dL MCHC (31.0-37.0) g/dL RDW (11.5-15.5) % Potassium 6.0 H (3.5-5.1) mmol/L BUN (7-17) mg/dL Creatinine (0.52-1.04) mg/dL Glucose (74-99) mg/dL POC Glucose (mg/dL) 158 H 209 H (75-99) mg/dL Assessment and Plan Assessment: 1- patient with a chronic nonhealing wound to the left posterior leg area with evidence of Osteomyelitis on her last admission An local culture positive for MSSA strep and anaerobes while the patient is currently getting Unasyn 3 g every 8 hours at the intermediate admitted to the hospital with evidence of fluid overload and elevated potassium currently with no evidence of any worsening mood to the left heel area patient has no fever or elevated white count (1) Ankle osteomyelitis, left Current Visit: Yes Status: Acute Code(s): M86.9 - OSTEOMYELITIS, UNSPECIFIED SNOMED Code(s): 1102264846219650 (2) Wound of left foot Current Visit: Yes Status: Acute Code(s): S91.302A - UNSPECIFIED OPEN WOUND, LEFT FOOT, INITIAL ENCOUNTER SNOMED Code(s): 933981811 (3) Diabetic infection of left foot Current Visit: No Status: Acute Code(s): E11.628 - TYPE 2 DIABETES MELLITUS WITH OTHER SKIN COMPLICATIONS; L08.9 - LOCAL INFECTION OF THE SKIN AND SUBCUTANEOUS TISSUE, UNSP SNOMED Code(s): 24900637 Plan: 1- Unasyn 3 g every 8 hours 2-local wound care with Aquacel silver dressing and heel protector We will follow on clinical condition and cultures to further adjust medication if needed Thank you for this consultation will follow this patient with you Time with Patient: Greater than 30
[2020-07-05] MEDS: AMPICILLIN-SULBACTAM 3 GM in SODIUM CHLORIDE 0.9% 100 ML IVPB SCH ×4 (00:59→23:10)
[2020-07-05] MEDS: HYDROcodone/APAP 5-325MG 1 EACH TAB PO PRN ×4 (02:13→23:09)
[2020-07-05 06:01] LABS: Glucose,Whole Blood 191 mg/dL (75-99)
[2020-07-05] MEDS: INSULIN ASPART (NovoLOG) 100 UNIT/ML VIAL SQ SCH ×4 (06:36→20:46)
[2020-07-05 08:13] LABS: Calcium 8.5 mg/dL (8.4-10.2); Magnesium 2.2 mg/dL (1.6-2.3)
[2020-07-05 08:21] LABS: Potassium 6.1 mmol/L (3.5-5.1)
[2020-07-05] MEDS ORDERED: SODIUM BICARB 8.4% 50 ML SYR (1 MEQ/ML) IV STA ×2 (08:42→21:06)
[2020-07-05] MEDS ORDERED: DEXTROSE 50% SYRINGE 50 ML IVP STA ×2 (08:42→21:06)
[2020-07-05] MEDS ORDERED: INSULIN REGULAR 100 UNIT/ML VIAL IV ONE ×2 (08:43→21:06)
[2020-07-05] MEDS ORDERED: IPRATROPIUM-ALBUTEROL 3 ML NEB INHALATION PRN (10:22)
--- NOTE | 2020-07-05 10:26 | P.HPIM ---
History of Present Illness H&P Date: 07/04/20 Chief Complaint: Worsening generalized edema 60-year-old female to the ER for evaluation regarding not feeling well. Patient was sent in for fluid overload. Patient has significant swelling of lower extremities difficulty breathing and overall edema. Patient herself denies any complaints was sent to ER by the extended care facility for evaluation. On reevaluation patient does admit to some shortness of breath and some pain in both legs In the ED agent was found to be in acute renal failure with critical hyperkalemia along with chronic nonhealing wound of left posterior like/osteomyelitis of left ankle Patient was diagnosed with left posterior leg osteomyelitis on her last admission with a local wound culture positive for MSSA, strep and anaerobes and patient was discharged on IV Unasyn 3 g every 8 hours at the longterm Review of Systems REVIEW OF SYSTEMS: CONSTITUTIONAL: No fever, no malaise, no fatigue. HEENT: No recent visual problems or hearing problems. Denied any sore throat. CARDIOVASCULAR: No chest pain, orthopnea, PND, no palpitations, no syncope. PULMONARY: No shortness of breath, no cough, no hemoptysis. GASTROINTESTINAL: No diarrhea, no nausea, no vomiting, no abdominal pain. NEUROLOGICAL: No headaches, no weakness, no numbness. HEMATOLOGICAL: Denies any bleeding or petechiae. GENITOURINARY: Denies any burning micturition, frequency, or urgency. MUSCULOSKELETAL/RHEUMATOLOGICAL: Denies any joint pain, swelling, or any muscle pain. ENDOCRINE: Denies any polyuria or polydipsia. The rest of the 14-point review of systems is negative. Past Medical History Past Medical History: Asthma, COPD, Diabetes Mellitus, Fibromyalgia Additional Past Medical History / Comment(s): IBS History of Any Multi-Drug Resistant Organisms: None Reported Past Surgical History: Hysterectomy, Joint Replacement, Tonsillectomy Additional Past Surgical History / Comment(s): carpal tunnel, bilateral knees, L rotator cuff PICC line left upper arm removed currently one in RT upper arm Past Anesthesia/Blood Transfusion Reactions: No Reported Reaction Past Psychological History: No Psychological Hx Reported Smoking Status: Former smoker Past Alcohol Use History: None Reported Past Drug Use History: None Reported - Past Family History Mother Family Medical History: Cancer, Coronary Artery Disease (CAD), Diabetes Mellitus Father Family Medical History: Coronary Artery Disease (CAD), Diabetes Mellitus, Renal Disease Medications and Allergies Home Medications Medication Instructions Recorded Confirmed Type Dicyclomine [Bentyl] 10 mg PO BID@0900,209906/10/20 07/03/20 History Ipratropium-Albuterol Nebulize 3 ml INHALATION RT-TID PRN ml 06/15/20 07/03/20 Rx [Duoneb 0.5 mg-3 mg/3 ml Soln] Ampicillin Sodium/Sulbactam Na 1.5 gm IV Q8H 07/03/20 07/03/20 History [Ampicillin-Sulbactam 1.5 gm Vl] Fluconazole [Diflucan] 200 mg PO DAILY@0900 07/03/20 07/03/20 History Furosemide [Lasix] 40 mg PO DAILY@0600 07/03/20 07/03/20 History Gabapentin [Neurontin] 400 mg PO BID@0900,209907/03/20 07/03/20 History HYDROcodone/APAP 5-325MG [[place] 1 tab PO Q6H PRN 07/03/20 07/03/20 History 5-325] INSULIN LISPRO (HumaLOG) [humaLOG] See Protocol SQ ACHS 07/03/20 07/03/20 History Insulin Glargine,Hum.rec.anlog 30 unit SQ HS@209907/03/20 07/03/20 History [Basaglar Kwikpen U-100] Pro-Stat Sugar Free Awc Suppl 30 ml PO DAILY@0900 07/03/20 07/03/20 History Allergies Allergy/AdvReac Type Severity Reaction Status Date / Time adhesive tape Allergy Rash/Hives Verified 07/03/20 21:24 diphenhydramine Allergy Rash/Hives Verified 07/03/20 21:24 [From Benadryl] latex Allergy Rash/Hives Verified 07/03/20 21:24 oxycodone [From Percodan] AdvReac Altered Verified 07/03/20 21:24 Mental Status prednisone AdvReac Increased Verified 07/03/20 21:24 Blood Sugar Physical Exam Vitals: Vital Signs Temp Pulse Pulse Resp BP BP Pulse Ox 07/04/20 12:00 75 18 129/80 99 07/04/20 08:00 97.4 F L 79 18 131/93 96 07/04/20 04:00 80 20 134/80 96 07/04/20 00:00 20 07/03/20 21:21 97.9 F 94 20 122/75 95 07/03/20 19:22 98.1 F 76 16 128/105 94 L Intake and Output 07/04/20 07/04/20 07/04/20 06:59 14:59 22:59 Intake Total 240 Balance 240 Intake: Oral 240 Other: Voiding Method Bedpan # Voids 3 2 # Bowel Movements 2 Weight 131.6 kg 131.6 kg GENERAL DESCRIPTION: Middle-aged female lying in bed, no distress. No tachypnea or accessory muscle of respiration use. HEENT: Shows Pallor , no scleral icterus. Oral mucous membrane is dry. No pharyngeal erythema or thrush NECK: Trachea central, no thyromegaly. LUNGS: Unlabored breathing. Decreased potassium at the base. No wheeze or crackle. HEART: S1, S2, regular rate and rhythm. No loud murmur ABDOMEN: Soft, no tenderness , guarding or rigidity, no organomegaly EXTREMITIES: Left heel wound with no significant slough tissue swelling no significant redness or foul-smelling drainage SKIN: No rash, no masses palpable. NEUROLOGICAL: The patient is awake, alert, oriented x3, mood and affect normal. Results CBC & Chem 7: 07/04/20 07:29 07/05/20 07:35 Labs: Abnormal Lab Results - Last 24 Hours (Table) 07/03/20 07/03/20 07/03/20 Range/Units 19:54 19:54 22:34 Hgb (11.4-16.0) gm/dL MCHC 29.6 L (31.0-37.0) g/dL RDW 16.5 H (11.5-15.5) % Lymphocytes # 0.9 L (1.0-4.8) k/uL Potassium 6.4 H* (3.5-5.1) mmol/L BUN 55 H (7-17) mg/dL Creatinine 1.16 H (0.52-1.04) mg/dL Glucose 191 H (74-99) mg/dL POC Glucose (mg/dL) 159 H (75-99) mg/dL Phosphorus 4.6 H (2.5-4.5) mg/dL Magnesium 2.4 H (1.6-2.3) mg/dL Albumin 3.3 L (3.5-5.0) g/dL 07/04/20 07/04/20 07/04/20 Range/Units 06:35 07:29 07:29 Hgb 11.2 L (11.4-16.0) gm/dL MCHC 28.9 L (31.0-37.0) g/dL RDW 16.6 H (11.5-15.5) % Lymphocytes # (1.0-4.8) k/uL Potassium 6.3 H* (3.5-5.1) mmol/L BUN 56 H (7-17) mg/dL Creatinine 1.13 H (0.52-1.04) mg/dL Glucose 128 H (74-99) mg/dL POC Glucose (mg/dL) 133 H (75-99) mg/dL Phosphorus (2.5-4.5) mg/dL Magnesium (1.6-2.3) mg/dL Albumin (3.5-5.0) g/dL 07/04/20 07/04/20 Range/Units 12:43 14:03 Hgb (11.4-16.0) gm/dL MCHC (31.0-37.0) g/dL RDW (11.5-15.5) % Lymphocytes # (1.0-4.8) k/uL Potassium 6.0 H (3.5-5.1) mmol/L BUN (7-17) mg/dL Creatinine (0.52-1.04) mg/dL Glucose (74-99) mg/dL POC Glucose (mg/dL) 150 H (75-99) mg/dL Phosphorus (2.5-4.5) mg/dL Magnesium (1.6-2.3) mg/dL Albumin (3.5-5.0) g/dL Thrombosis Risk Factor Assmnt - Choose All That Apply Each Factor Represents 1 point: Abnormal pulmonary function (COPD), Age 41-60 years, Medical pt on bed rest, Obesity (BMI >25), Swollen legs (current) Other Risk Factors: No Thrombosis Risk Factor Assessment Total Risk Factor Score: 5 Thrombosis Risk Factor Assessment Level: High Risk Assessment and Plan Assessment: 1. Acute renal failure most likely secondary to cardiorenal syndrome - Creatinine at 1.13 this morning; nephrology on board and recommending renal ultrasound to rule out urinary retention/obstructive uropathy; monitor strict KARLOS's, daily weights, renal function and electrolytes 2. Critical hyperkalemia; patient received 10 units of IV regular insulin with an amp of D50; plan to repeat potassium level around 2 PM 3. Generalized anasarca; patient is started on Lasix 40 mg IV every 12 hours; nephrology on board 4. Left ankle osteomyelitis; patient is currently on Unasyn 3 g IV every 8 hours; IDs following and recommending to continue current antibiotics 5. Diabetic infection of left foot; IV antibiotics in form of Unasyn along with local wound care with Aquasol silver dressing and heel protector; further recommendations once cultures are available 6. Insulin-dependent diabetes mellitus; monitor Accu-Cheks every before meals and at bedtime with insulin sliding scale; restart home dose of long acting insulin at 30 units subcu daily at bedtime 7. COPD/asthma; not in exacerbation; patient remains on bronchodilator nebulizer treatments as needed 8. Fibromyalgia; Neurontin 400 mg twice a day 9. Morbid obesity; counseling done DVT prophylaxis; SCDs/subcu heparin CODE STATUS; full code
--- NOTE | 2020-07-05 10:37 | P.PN ---
Subjective patient is seen in follow-up for acute kidney injury and hyperkalemia. Renal function fairly stable. Potassium level 6.1 this morning. nonoliguric. denies chest pain or shortness of breath. Vital signs are stable. General: The patient appeared well nourished and normally developed. HEENT: Head exam is unremarkable. Neck is without jugular venous distension. LUNGS: Breath sounds decreased. HEART: Rate and Rhythm are regular. ABDOMEN: soft, obese. EXTREMITITES: 1+ edema. Chronic skin changes noted. Objective - Vital Signs Vital signs: Vital Signs Temp 98.3 F 07/05/20 04:00 Pulse 78 07/05/20 04:00 Resp 20 07/05/20 04:00 BP 132/82 07/05/20 04:00 Pulse Ox 95 07/05/20 04:00 Intake & Output 07/04/20 07/05/20 07/05/20 18:59 06:59 18:59 Intake Total 600 100 Output Total 150 850 Balance 450 -850 100 Weight 131.6 kg 169.417 kg Intake: Oral 600 100 Output: Urine 150 850 Uretheral (Mora) 150 Other: Voiding Method Bedpan # Voids 2 # Bowel Movements 2 - Labs CBC & Chem 7: 07/04/20 07:29 07/05/20 07:35 Labs: Abnormal Lab Results - Last 24 Hours (Table) 07/04/20 07/04/20 07/04/20 Range/Units 12:43 14:03 16:42 Sodium (137-145) mmol/L Potassium 6.0 H (3.5-5.1) mmol/L BUN (7-17) mg/dL Creatinine (0.52-1.04) mg/dL Glucose (74-99) mg/dL POC Glucose (mg/dL) 150 H 158 H (75-99) mg/dL 07/04/20 07/04/20 07/05/20 Range/Units 19:58 20:30 01:05 Sodium (137-145) mmol/L Potassium 6.0 H 6.0 H (3.5-5.1) mmol/L BUN (7-17) mg/dL Creatinine (0.52-1.04) mg/dL Glucose (74-99) mg/dL POC Glucose (mg/dL) 209 H (75-99) mg/dL 07/05/20 07/05/20 Range/Units 06:00 07:35 Sodium 136 L (137-145) mmol/L Potassium 6.1 H* (3.5-5.1) mmol/L BUN 52 H (7-17) mg/dL Creatinine 1.22 H (0.52-1.04) mg/dL Glucose 200 H (74-99) mg/dL POC Glucose (mg/dL) 191 H (75-99) mg/dL Assessment and Plan Plan: assessment: 1. Acute kidney injury mostly prerenal secondary to cardiorenal syndrome. Creatinine 1.22 today. no evidence of hydronephrosis noted on kidney ultrasound. However left kidney wasn't visualized due to body habitus. accurate bladder scan could not be obtained so Mora catheter was placed. 2. Volume overload. 3. Hyperkalemia secondary to acute kidney injury. no evidence of acidosis. Blood sugars stable. 4. Insulin-dependent diabetes mellitus. 5. Morbid obesity. 6. Left foot diabetic wound maintained on antibiotics. plan: maintain IV Lasix 40 mg twice daily. she received IV insulin with D50 as well as 2 A of sodium bicarbonate IV push this morning. maintain Mora catheter. urinalysis pending. Low potassium diet. Repeat potassium level at 12 PM today. tight blood sugar control.
[2020-07-05] MEDS: FUROSEMIDE 10 MG/ML 4 ML VIAL IV SCH ×2 (11:09→20:45)
[2020-07-05] MEDS: FLUCONAZOLE 100 MG TAB PO SCH (11:16)
[2020-07-05 11:56] LABS: Glucose,Whole Blood 194 mg/dL (75-99)
--- NOTE | 2020-07-05 16:21 | P.PN ---
Subjective Progress Note Date: 07/05/20 Principal diagnosis: Acute renal failure Critical hyperkalemia Generalized anasarca Left ankle osteomyelitis 60-year-old female to the ER for evaluation regarding not feeling well. Patient was sent in for fluid overload. Patient has significant swelling of lower extremities difficulty breathing and overall edema. Patient herself denies any complaints was sent to ER by the [facility] for evaluation. On reevaluation patient does admit to some shortness of breath and some pain in both legs In the ED agent was found to be in acute renal failure with critical h yperkalemia along with chronic nonhealing wound of left posterior like/osteomyelitis of left ankle Patient was diagnosed with left posterior leg osteomyelitis on her last admission with a local wound culture positive for MSSA, strep and anaerobes and patient was discharged on IV Unasyn 3 g every 8 hours [facility] the [facility] 07/05/2020 Patient is seen and evaluated resting comfortably in bed Vital signs are stable at temperature of 98.3, pulse 78, respiration 20 and blood pressure 132/82 Lab review shows a sodium of 136, potassium of 6.1, BUN/creatinine of 52/1.22 Nephrology is following and recommending to continue with Lasix 40 mg IV twice a day, patient received IV insulin with D50 along with sodium bicarbonate; low potassium diet is implemented Patient's blood sugars remain elevated; we will increase Levemir up to 40 units daily at bedtime; continue to monitor Accu-Cheks every before meals and at bedtime with insulin sliding scale Objective - Vital Signs Vital signs: Vital Signs Temp 98.3 F 07/05/20 04:00 Pulse 78 07/05/20 04:00 Resp 20 07/05/20 04:00 BP 132/82 07/05/20 04:00 Pulse Ox 95 07/05/20 04:00 Intake & Output 07/04/20 07/05/20 07/05/20 18:59 06:59 18:59 Intake Total 600 100 Output Total 150 850 Balance 450 -850 100 Weight 131.6 kg 169.417 kg Intake: Oral 600 100 Output: Urine 150 850 Uretheral (Mora) 150 Other: Voiding Method Bedpan # Voids 2 # Bowel Movements 2 - Exam General: The patient appeared well nourished and normally developed. HEENT: Head exam is unremarkable. Neck is without jugular venous distension. LUNGS: Breath sounds decreased. HEART: Rate and Rhythm are regular. ABDOMEN: soft, obese. EXTREMITITES: 1+ edema. Chronic skin changes noted. - Labs CBC & Chem 7: 07/04/20 07:29 07/05/20 11:39 Labs: Abnormal Lab Results - Last 24 Hours (Table) 07/04/20 07/04/20 07/04/20 Range/Units 12:43 14:03 16:42 Sodium (137-145) mmol/L Potassium 6.0 H (3.5-5.1) mmol/L BUN (7-17) mg/dL Creatinine (0.52-1.04) mg/dL Glucose (74-99) mg/dL POC Glucose (mg/dL) 150 H 158 H (75-99) mg/dL 07/04/20 07/04/20 07/05/20 Range/Units 19:58 20:30 01:05 Sodium (137-145) mmol/L Potassium 6.0 H 6.0 H (3.5-5.1) mmol/L BUN (7-17) mg/dL Creatinine (0.52-1.04) mg/dL Glucose (74-99) mg/dL POC Glucose (mg/dL) 209 H (75-99) mg/dL 07/05/20 07/05/20 Range/Units 06:00 07:35 Sodium 136 L (137-145) mmol/L Potassium 6.1 H* (3.5-5.1) mmol/L BUN 52 H (7-17) mg/dL Creatinine 1.22 H (0.52-1.04) mg/dL Glucose 200 H (74-99) mg/dL POC Glucose (mg/dL) 191 H (75-99) mg/dL Assessment and Plan Assessment: 1. Acute renal failure most likely secondary to cardiorenal syndrome - Creatinine at 1.13 this morning; nephrology on board and recommending renal ultrasound to rule out urinary retention/obstructive uropathy; monitor strict KARLOS's, daily weights, renal function and electrolytes 2. Critical hyperkalemia; patient received 10 units of IV regular insulin with an amp of D50; plan to repeat potassium level around 2 PM 3. Generalized anasarca; patient is started on Lasix 40 mg IV every 12 hours; nephrology on board 4. Left ankle osteomyelitis; patient is currently on Unasyn 3 g IV every 8 hours; IDs following and recommending to continue current antibiotics 5. Diabetic infection of left foot; IV antibiotics in form of Unasyn along with local wound care with Aquasol silver dressing and heel protector; further recommendations once cultures are available 6. Insulin-dependent diabetes mellitus; monitor Accu-Cheks every before meals and at bedtime with insulin sliding scale; restart home dose of long acting insulin at 30 units subcu daily at bedtime 7. COPD/asthma; not in exacerbation; patient remains on bronchodilator nebulizer treatments as needed 8. Fibromyalgia; Neurontin 400 mg twice a day 9. Morbid obesity; counseling done DVT prophylaxis; SCDs/subcu heparin CODE STATUS; full code
[2020-07-05 17:15] LABS: Glucose,Whole Blood 205 mg/dL (75-99)
[2020-07-05 20:42] LABS: Glucose,Whole Blood 188 mg/dL (75-99)
[2020-07-05] MEDS: DICYCLOMINE 10 MG CAP PO SCH (20:45)
[2020-07-05] MEDS: GABAPENTIN 400 MG CAP PO SCH (20:45)
[2020-07-05] MEDS: INSULIN DETEMIR (LEVEMIR) 100 UNIT/ML SYR SQ SCH (20:46)
[2020-07-05 20:47] LABS: Appearance,Urine Clear (Clear); Bilirubin,Urine Negative (Negative); Blood,Urine Moderate (Negative); Color,Urine Yellow; Glucose,Urine (UA) 2+ (Negative); Granular Casts,Urine 1 /lpf (0); Hyaline Casts,Urine 93 /lpf (0-2); Ketones,Urine Negative (Negative); Leukocyte Esterase,Urine Small (Negative); Mucus,Urine Rare /hpf; Nitrite,Urine Negative (Negative); Protein,Urine Trace (Negative); RBC,Urine 36 /hpf (0-5); Specific Gravity,Urine 1.018 (1.001-1.035); Squamous Epithelial Cell,Urine <1 /hpf (0-4); Urobilinogen,Urine <2.0 mg/dL (<2.0); WBC,Urine 3 /hpf (0-5)
[2020-07-05] MEDS ORDERED: CALCIUM GLUCONATE 1 GM in SODIUM CHLORIDE 0.9% 100 ML IVPB ONE (21:15)
--- NOTE | 2020-07-06 06:02 | PN ---
PROGRESS NOTE DATE OF SERVICE: 07/05/2020 REASON FOR FOLLOWUP: Left posterior heel wound with underlying osteomyelitis. INTERVAL HISTORY: The patient is currently afebrile. The patient is breathing comfortably. The patient denies having any chest pain. Minimal cough. No nausea, vomiting. No abdominal pain. No pain to the left posterior leg wound area. PHYSICAL EXAMINATION: Blood pressure 127/70 with a pulse of 76, temperature 97.9. She is 94% on 5 L nasal cannula. General description is a middle-aged female lying in bed in no distress. Respiratory system: Unlabored breathing, decreased breath sounds at the bases. No wheeze. Heart S1, S2. Regular rate and rhythm. ABDOMEN: Soft, no tenderness. LAB: Potassium is elevated at 6.3, creatinine 1.22. DIAGNOSTIC IMPRESSION AND PLAN: Patient with left posterior heel pressure ulcer with secondary cellulitis and underlying osteomyelitis. At this point, the patient is currently receiving Unasyn to continue high potassium has been monitored by the Nephrology team. Local care to continue as ordered. Continue supportive care. MMODL / IJN: [id number] /
[2020-07-06 06:17] LABS: Glucose,Whole Blood 111 mg/dL (75-99)
[2020-07-06] MEDS: INSULIN ASPART (NovoLOG) 100 UNIT/ML VIAL SQ SCH ×4 (06:21→20:00)
[2020-07-06 07:07] LABS: Calcium 8.5 mg/dL (8.4-10.2); Magnesium 2.1 mg/dL (1.6-2.3); Potassium 5.8 mmol/L (3.5-5.1)
[2020-07-06] MEDS: DICYCLOMINE 10 MG CAP PO SCH ×2 (09:00→20:00)
[2020-07-06] MEDS: HYDROcodone/APAP 5-325MG 1 EACH TAB PO PRN ×2 (09:00→17:37)
[2020-07-06] MEDS: FLUCONAZOLE 100 MG TAB PO SCH (09:00)
[2020-07-06] MEDS: GABAPENTIN 400 MG CAP PO SCH ×2 (09:00→20:00)
[2020-07-06] MEDS: AMPICILLIN-SULBACTAM 3 GM in SODIUM CHLORIDE 0.9% 100 ML IVPB SCH ×3 (09:01→23:25)
[2020-07-06] MEDS: FUROSEMIDE 10 MG/ML 4 ML VIAL IV SCH (09:05)
--- NOTE | 2020-07-06 10:03 | P.PN ---
Subjective patient is seen in follow-up for acute kidney injury and hyperkalemia. Renal function fairly stable. Potassium level 5.8 this morning. nonoliguric. denies chest pain or shortness of breath. still quite edematous. Denies chest pain. No vomiting or diarrhea. Vital signs are stable. General: The patient appeared well nourished and normally developed. HEENT: Head exam is unremarkable. Neck is without jugular venous distension. LUNGS: Breath sounds decreased. HEART: Rate and Rhythm are regular. ABDOMEN: soft, obese. EXTREMITITES: 2+ edema. Chronic skin changes noted. Objective - Vital Signs Vital signs: Vital Signs Temp 97.7 F 07/06/20 04:00 Pulse 80 07/06/20 04:00 Resp 16 07/06/20 04:00 BP 124/69 07/06/20 04:00 Pulse Ox 93 L 07/06/20 04:00 Intake & Output 07/05/20 07/06/20 07/06/20 18:59 06:59 18:59 Intake Total 465 200 Output Total 400 800 Balance 65 -600 Weight 163.5 kg Intake: Intake, IV Titration 200 Amount Ampicillin-Sulbactam 3 gm 100 In Sodium Chloride 0.9% 100 ml @ 200 mls/hr IVPB Q8HR VERONICA Rx#:[id number] Calcium Gluconate 1 gm In 100 Sodium Chloride 0.9% 100 ml @ 100 mls/hr IVPB ONCE ONE Rx#:[id number] Oral 465 Output: Urine 400 800 Other: Voiding Method Indwelling Catheter # Bowel Movements 1 - Labs CBC & Chem 7: 07/04/20 07:29 07/06/20 06:39 Labs: Abnormal Lab Results - Last 24 Hours (Table) 07/05/20 07/05/20 07/05/20 Range/Units 10:36 11:39 11:52 Potassium 5.9 H (3.5-5.1) mmol/L Carbon Dioxide (22-30) mmol/L BUN (7-17) mg/dL Creatinine (0.52-1.04) mg/dL Glucose (74-99) mg/dL POC Glucose (mg/dL) 194 H (75-99) mg/dL Urine Protein Trace H (Negative) Urine Glucose (UA) 2+ H (Negative) Urine Blood Moderate H (Negative) Ur Leukocyte Esterase Small H (Negative) Urine RBC 36 H (0-5) /hpf Hyaline Casts 93 H (0-2) /lpf Urine Mucus Rare H (None) /hpf 07/05/20 07/05/20 07/05/20 Range/Units 17:09 19:56 20:41 Potassium 6.3 H* (3.5-5.1) mmol/L Carbon Dioxide (22-30) mmol/L BUN (7-17) mg/dL Creatinine (0.52-1.04) mg/dL Glucose (74-99) mg/dL POC Glucose (mg/dL) 205 H 188 H (75-99) mg/dL Urine Protein (Negative) Urine Glucose (UA) (Negative) Urine Blood (Negative) Ur Leukocyte Esterase (Negative) Urine RBC (0-5) /hpf Hyaline Casts (0-2) /lpf Urine Mucus (None) /hpf 07/06/20 07/06/20 07/06/20 Range/Units 00:28 06:13 06:39 Potassium 5.5 H 5.8 H (3.5-5.1) mmol/L Carbon Dioxide 36 H (22-30) mmol/L BUN 53 H (7-17) mg/dL Creatinine 1.25 H (0.52-1.04) mg/dL Glucose 130 H (74-99) mg/dL POC Glucose (mg/dL) 111 H (75-99) mg/dL Urine Protein (Negative) Urine Glucose (UA) (Negative) Urine Blood (Negative) Ur Leukocyte Esterase (Negative) Urine RBC (0-5) /hpf Hyaline Casts (0-2) /lpf Urine Mucus (None) /hpf Assessment and Plan Plan: assessment: 1. Acute kidney injury mostly prerenal secondary to cardiorenal syndrome. Creatinine 1.25 today. no evidence of hydronephrosis noted on kidney ultrasound. However left kidney wasn't visualized due to body habitus. accurate bladder scan could not be obtained so Mora catheter was placed. trace proteinuria on UA . 2. Volume overload. 3. Hyperkalemia secondary to acute kidney injury. no evidence of acidosis. Blood sugars stable. 4. Insulin-dependent diabetes mellitus. 5. Morbid obesity. 6. Left foot diabetic wound maintained on antibiotics. plan: start Lasix drip at 10 mL an hour. maintain Mora catheter. Low potassium diet. Repeat potassium level at 5 PM today. tight blood sugar control.
[2020-07-06] MEDS: FUROSEMIDE 100 MG in SODIUM CHLORIDE 0.9% 90 ML IV SCH ×2 (11:00→20:03)
[2020-07-06 11:37] LABS: Glucose,Whole Blood 121 mg/dL (75-99)
--- NOTE | 2020-07-06 11:44 | P.CONS ---
History of Present Illness - Reason for Consult Consult date: 07/06/20 Wound care - History of Present Illness This is a 60-year-old patient being seen by the wound care center on for nonhealing ulceration to the left calcaneus. Patient is a known patient to the wound care center typically seen Dr. Sousa on the clinic. Patient was utilizing Santyl to the left calcaneus. She also has osteomyelitis to the left calcaneus which she has been getting IV antibiotics. Patient is nonw eightbearing utilizing a walker. Ulceration has been showing improvement. She has history of diabetes. Review of Systems Review Of Systems: Constitutional: No fever, no chills, no night sweats. No weight change. No weakness, fatigue or lethargy. No daytime sleepiness. Integumentary:reports wounds, no lesions. No rash or pruritus. No unusual bruising. No change in hair or nails. Past Medical History Past Medical History: Asthma, COPD, Diabetes Mellitus, Fibromyalgia Additional Past Medical History / Comment(s): IBS History of Any Multi-Drug Resistant Organisms: None Reported Past Surgical History: Hysterectomy, Joint Replacement, Tonsillectomy Additional Past Surgical History / Comment(s): carpal tunnel, bilateral knees, L rotator cuff PICC line left upper arm removed currently one in RT upper arm Past Anesthesia/Blood Transfusion Reactions: No Reported Reaction Past Psychological History: No Psychological Hx Reported Smoking Status: Former smoker Past Alcohol Use History: None Reported Past Drug Use History: None Reported - Past Family History Mother Family Medical History: Cancer, Coronary Artery Disease (CAD), Diabetes Mellitus Father Family Medical History: Coronary Artery Disease (CAD), Diabetes Mellitus, Renal Disease Medications and Allergies Home Medications Medication Instructions Recorded Confirmed Type Dicyclomine [Bentyl] 10 mg PO BID@0900,2100 06/10/20 07/03/20 History Ipratropium-Albuterol Nebulize 3 ml INHALATION RT-TID PRN ml 06/15/20 07/03/20 Rx [Duoneb 0.5 mg-3 mg/3 ml Soln] Ampicillin Sodium/Sulbactam Na 1.5 gm IV Q8H 07/03/20 07/03/20 History [Ampicillin-Sulbactam 1.5 gm Vl] Fluconazole [Diflucan] 200 mg PO DAILY@0900 07/03/20 07/03/20 History Furosemide [Lasix] 40 mg PO DAILY@0600 07/03/20 07/03/20 History Gabapentin [Neurontin] 400 mg PO BID@0900,2100 07/03/20 07/03/20 History HYDROcodone/APAP 5-325MG [[place] 1 tab PO Q6H PRN 07/03/20 07/03/20 History 5-325] INSULIN LISPRO (HumaLOG) [humaLOG] See Protocol SQ ACHS 07/03/20 07/03/20 History Insulin Glargine,Hum.rec.anlog 30 unit SQ HS@2100 07/03/20 07/03/20 History [Basaglar Kwikpen U-100] Pro-Stat Sugar Free Awc Suppl 30 ml PO DAILY@0900 07/03/20 07/03/20 History Allergies Allergy/AdvReac Type Severity Reaction Status Date / Time adhesive tape Allergy Rash/Hives Verified 07/03/20 21:24 diphenhydramine Allergy Rash/Hives Verified 07/03/20 21:24 [From Benadryl] latex Allergy Rash/Hives Verified 07/03/20 21:24 oxycodone [From Percodan] AdvReac Altered Verified 07/03/20 21:24 Mental Status prednisone AdvReac Increased Verified 07/03/20 21:24 Blood Sugar Physical Exam Vitals: Vital Signs Temp Pulse Resp BP Pulse Ox 07/06/20 08:00 97.6 F 80 20 131/77 94 L 07/06/20 04:00 97.7 F 80 16 124/69 93 L 07/05/20 23:55 82 18 07/05/20 23:54 97.6 F 82 18 128/63 93 L 07/05/20 20:00 97.9 F 76 18 127/71 94 L 07/05/20 16:00 81 18 120/63 96 07/05/20 12:00 79 20 120/82 96 Intake and Output 07/05/20 07/06/20 07/06/20 22:59 06:59 14:59 Intake Total 225 100 222 Output Total 500 300 Balance -275 -200 222 Intake: Intake, IV Titration 100 100 Amount Ampicillin-Sulbactam 3 gm 100 In Sodium Chloride 0.9% 100 ml @ 200 mls/hr IVPB Q8HR [facility] Rx#:[id number] Calcium Gluconate 1 gm In 100 Sodium Chloride 0.9% 100 ml @ 100 mls/hr IVPB ONCE ONE Rx#:[id number] Oral 125 222 Output: Urine 500 300 Other: Voiding Method Indwelling Catheter Indwelling Catheter # Voids 500 # Bowel Movements 1 1 Weight 163.5 kg Results CBC & Chem 7: 07/04/20 07:29 07/06/20 06:39 Labs: Abnormal Lab Results - Last 24 Hours (Table) 07/05/20 07/05/20 07/05/20 Range/Units 10:36 11:39 11:52 Potassium 5.9 H (3.5-5.1) mmol/L Carbon Dioxide (22-30) mmol/L BUN (7-17) mg/dL Creatinine (0.52-1.04) mg/dL Glucose (74-99) mg/dL POC Glucose (mg/dL) 194 H (75-99) mg/dL Urine Protein Trace H (Negative) Urine Glucose (UA) 2+ H (Negative) Urine Blood Moderate H (Negative) Ur Leukocyte Esterase Small H (Negative) Urine RBC 36 H (0-5) /hpf Hyaline Casts 93 H (0-2) /lpf Urine Mucus Rare H (None) /hpf 07/05/20 07/05/20 07/05/20 Range/Units 17:09 19:56 20:41 Potassium 6.3 H* (3.5-5.1) mmol/L Carbon Dioxide (22-30) mmol/L BUN (7-17) mg/dL Creatinine (0.52-1.04) mg/dL Glucose (74-99) mg/dL POC Glucose (mg/dL) 205 H 188 H (75-99) mg/dL Urine Protein (Negative) Urine Glucose (UA) (Negative) Urine Blood (Negative) Ur Leukocyte Esterase (Negative) Urine RBC (0-5) /hpf Hyaline Casts (0-2) /lpf Urine Mucus (None) /hpf 07/06/20 07/06/20 07/06/20 Range/Units 00:28 06:13 06:39 Potassium 5.5 H 5.8 H (3.5-5.1) mmol/L Carbon Dioxide 36 H (22-30) mmol/L BUN 53 H (7-17) mg/dL Creatinine 1.25 H (0.52-1.04) mg/dL Glucose 130 H (74-99) mg/dL POC Glucose (mg/dL) 111 H (75-99) mg/dL Urine Protein (Negative) Urine Glucose (UA) (Negative) Urine Blood (Negative) Ur Leukocyte Esterase (Negative) Urine RBC (0-5) /hpf Hyaline Casts (0-2) /lpf Urine Mucus (None) /hpf Assessment and Plan (1) Osteomyelitis Current Visit: Yes Status: Acute Code(s): M86.9 - OSTEOMYELITIS, UNSPECIFIED SNOMED Code(s): 03032531 (2) Diabetic foot ulcer associated with type 2 diabetes mellitus, with fat layer exposed Current Visit: No Status: Acute Code(s): E11.621 - TYPE 2 DIABETES MELLITUS WITH FOOT ULCER; L97.502 - NON-PRS CHRONIC ULCER OTH PRT UNSP FOOT W FAT LAYER EXPOSED SNOMED Code(s): 4634268344836 (3) Non-pressure chronic ulcer of left heel and midfoot with fat layer exposed Current Visit: No Status: Acute Code(s): L97.422 - NON-PRS CHR ULCER OF LEFT HEEL AND MIDFOOT W FAT LAYER EXPOS SNOMED Code(s): 709793971 Plan: Apply absorptive silver, saline moistened gauze, dry gauze, rolled gauze. Patient will be seen in the wound care clinic on at 2:30 if she is not able to make that appointment please call the wound care center we will reschedule for the next week. Patient will continue to be nonweightbearing to his left calcaneus. Continue with IV antibiotics as prescribed per infectious disease. Thank you kindly for the consultation any questions to contact the wound care center DNP note has been reviewed and discussed with Dr. Sousa and the impression and plan of care has been directed as dictated.
[2020-07-06 17:21] LABS: Glucose,Whole Blood 150 mg/dL (75-99)
[2020-07-06 19:54] LABS: Glucose,Whole Blood 188 mg/dL (75-99)
[2020-07-06] MEDS: INSULIN DETEMIR (LEVEMIR) 100 UNIT/ML SYR SQ SCH (20:00)
--- NOTE | 2020-07-06 21:42 | P.PN ---
Subjective Progress Note Date: 07/06/20 Principal diagnosis: hyperkalemia She remains hyperkalemic today at 5.8, improved from 6.3. Pt diuresing on IV lasix. She is on Unasyn for her diabetic LLE wound, denies chest pain, fever, chills or shortness of breath. Objective - Vital Signs Vital signs: Vital Signs Temp 98.4 F 07/06/20 20:00 Pulse 78 07/06/20 20:17 Resp 16 07/06/20 20:00 BP 142/86 07/06/20 20:00 Pulse Ox 97 07/06/20 20:04 Intake & Output 07/06/20 07/06/20 07/07/20 06:59 18:59 06:59 Intake Total 200 666 90.5 Output Total 800 900 Balance -600 -234 90.5 Weight 163.5 kg Intake: Intake, IV Titration 200 90.5 Amount Ampicillin-Sulbactam 3 gm 100 In Sodium Chloride 0.9% 100 ml @ 200 mls/hr IVPB Q8HR [facility] Rx#:[id number] Calcium Gluconate 1 gm In 100 Sodium Chloride 0.9% 100 ml @ 100 mls/hr IVPB ONCE ONE Rx#:[id number] Furosemide 100 mg In 90.5 Sodium Chloride 0.9% 90 ml @ 10 MG/HR 10 mls/hr IV .Q10H [facility] Rx#: [id number] Oral 666 Output: Urine 800 900 Other: Voiding Method Indwelling Catheter Indwelling Catheter Indwelling Catheter # Voids 500 # Bowel Movements 1 2 - Exam General: well nourished, well developed, NAD. Vitals reviewed Lungs: normal respiratory effort, no wheezes or rales CV: Regular rate and rhythm, no murmur. Peripheral pulses 2+ Abdomen: soft, nondistended, no organomegaly Skin: warm and dry. LLE wrapped in gauze - Labs CBC & Chem 7: 07/04/20 07:29 07/06/20 16:52 Labs: Abnormal Lab Results - Last 24 Hours (Table) 07/06/20 07/06/20 07/06/20 Range/Units 00:28 06:13 06:39 Potassium 5.5 H 5.8 H (3.5-5.1) mmol/L Carbon Dioxide 36 H (22-30) mmol/L BUN 53 H (7-17) mg/dL Creatinine 1.25 H (0.52-1.04) mg/dL Glucose 130 H (74-99) mg/dL POC Glucose (mg/dL) 111 H (75-99) mg/dL 07/06/20 07/06/20 07/06/20 Range/Units 11:35 16:52 17:20 Potassium 5.7 H (3.5-5.1) mmol/L Carbon Dioxide (22-30) mmol/L BUN (7-17) mg/dL Creatinine (0.52-1.04) mg/dL Glucose (74-99) mg/dL POC Glucose (mg/dL) 121 H 150 H (75-99) mg/dL 07/06/20 Range/Units 19:53 Potassium (3.5-5.1) mmol/L Carbon Dioxide (22-30) mmol/L BUN (7-17) mg/dL Creatinine (0.52-1.04) mg/dL Glucose (74-99) mg/dL POC Glucose (mg/dL) 188 H (75-99) mg/dL Assessment and Plan (1) Cardiorenal syndrome Current Visit: Yes Status: Acute Code(s): I13.10 - HYP HRT & CHR KDNY DIS W/O HRT FAIL, W STG 1-4/UNSP CHR KDNY SNOMED Code(s): 411976729 (2) Hyperkalemia Current Visit: Yes Status: Acute Code(s): E87.5 - HYPERKALEMIA SNOMED Code(s): 29954512 (3) Diabetic foot ulcer associated with type 2 diabetes mellitus, with fat layer exposed Current Visit: No Status: Acute Code(s): E11.621 - TYPE 2 DIABETES MELLITUS WITH FOOT ULCER; L97.502 - NON-PRS CHRONIC ULCER OTH PRT UNSP FOOT W FAT LAYER EXPOSED SNOMED Code(s): 1289178836228 (4) Diabetic infection of left foot Current Visit: No Status: Acute Code(s): E11.628 - TYPE 2 DIABETES MELLITUS WITH OTHER SKIN COMPLICATIONS; L08.9 - LOCAL INFECTION OF THE SKIN AND SUBCUTANEOUS TISSUE, UNSP SNOMED Code(s): 41414932 (5) Diabetic neuropathy Current Visit: No Status: Acute Code(s): E11.40 - TYPE 2 DIABETES MELLITUS WITH DIABETIC NEUROPATHY, UNSP SNOMED Code(s): 683332609 (6) Non-pressure chronic ulcer of left heel and midfoot with fat layer exposed Current Visit: No Status: Acute Code(s): L97.422 - NON-PRS CHR ULCER OF LEFT HEEL AND MIDFOOT W FAT LAYER EXPOS SNOMED Code(s): 719567550 (7) Peripheral vascular disease Current Visit: No Status: Acute Code(s): I73.9 - PERIPHERAL VASCULAR DISEASE, UNSPECIFIED SNOMED Code(s): 149066466 Plan: Continue with current medications and treatment, continue IV antibiotics and diuresis with lasix. Switch today to lasix drip. Wound team following. Closely monitor potassium
[2020-07-07] MEDS: HYDROcodone/APAP 5-325MG 1 EACH TAB PO PRN ×4 (00:21→20:54)
--- NOTE | 2020-07-07 00:33 | PN ---
PROGRESS NOTE DATE OF SERVICE: 07/06/2020 REASON FOR FOLLOWUP: Left heel infected diabetic foot wound. INTERVAL HISTORY: The patient is currently afebrile. The patient is slightly breathing comfortably today. No chest pain or cough. No abdominal pain. No worsening pain in the left heel area. PHYSICAL EXAMINATION: Blood pressure 142/86, pulse of 73, temperature 98.4. She is 97% on 1.5 L nasal cannula. General description is a middle-aged female lying in bed in no distress. RESPIRATORY SYSTEM: Unlabored breathing, clear to auscultation anteriorly. HEART: S1, S2. Regular rate and rhythm. ABDOMEN: Soft. No tenderness. Left heel is currently dressed up. No obvious drainage on the dressing. LABS: BUN 53, creatinine 1.25. DIAGNOSTIC IMPRESSION AND PLAN: Patient with left heel infected pressure ulcer with underlying osteomyelitis with recent culture positive multiple pathogens. The patient is covered with Unasyn. To continue local wound care per wound care team. Keep the area off the pressure. MMODL / IJN: [id number] /
[2020-07-07] MEDS: FUROSEMIDE 100 MG in SODIUM CHLORIDE 0.9% 90 ML IV SCH ×2 (05:40→16:58)
[2020-07-07 06:09] LABS: Glucose,Whole Blood 129 mg/dL (75-99)
[2020-07-07] MEDS: INSULIN ASPART (NovoLOG) 100 UNIT/ML VIAL SQ SCH ×4 (06:09→20:54)
[2020-07-07 06:58] LABS: Calcium 8.2 mg/dL (8.4-10.2); Potassium 5.6 mmol/L (3.5-5.1)
[2020-07-07] MEDS: GABAPENTIN 400 MG CAP PO SCH ×2 (08:10→20:54)
[2020-07-07] MEDS: DICYCLOMINE 10 MG CAP PO SCH ×2 (08:10→20:54)
[2020-07-07] MEDS: FLUCONAZOLE 100 MG TAB PO SCH (08:10)
[2020-07-07] MEDS: AMPICILLIN-SULBACTAM 3 GM in SODIUM CHLORIDE 0.9% 100 ML IVPB SCH ×3 (08:10→23:41)
--- NOTE | 2020-07-07 10:21 | P.PN ---
Subjective patient is seen in follow-up for acute kidney injury and hyperkalemia. Renal function fairly stable. Potassium level 5.6 this morning. Diuresing well with Lasix drip. denies chest pain or shortness of breath. still quite edematous. No vomiting or diarrhea. Vital signs are stable. General: The patient appeared well nourished and normally developed. HEENT: Head exam is unremarkable. Neck is without jugular venous distension. LUNGS: Breath sounds decreased. HEART: Rate and Rhythm are regular. ABDOMEN: soft, obese. EXTREMITITES: 2+ edema. Chronic skin changes noted. Objective - Vital Signs Vital signs: Vital Signs Temp 97.4 F L 07/07/20 08:04 Pulse 75 07/07/20 08:04 Resp 18 07/07/20 08:04 BP 117/68 07/07/20 08:04 Pulse Ox 93 L 07/07/20 08:04 Intake & Output 07/06/20 07/07/20 07/07/20 18:59 06:59 18:59 Intake Total 666 586.667 240 Output Total 900 425 Balance -234 161.667 240 Weight 158 kg Intake: Intake, IV Titration 286.667 Amount Ampicillin-Sulbactam 3 gm 100 In Sodium Chloride 0.9% 100 ml @ 200 mls/hr IVPB Q8HR [facility] Rx#:[id number] Furosemide 100 mg In 186.667 Sodium Chloride 0.9% 90 ml @ 10 MG/HR 10 mls/hr IV .Q10H [facility] Rx#: [id number] Oral 666 300 240 Output: Urine 900 425 Other: Voiding Method Indwelling Catheter Indwelling Catheter Indwelling Catheter # Voids 500 # Bowel Movements 2 - Labs CBC & Chem 7: 07/04/20 07:29 07/07/20 06:28 Labs: Abnormal Lab Results - Last 24 Hours (Table) 07/06/20 07/06/20 07/06/20 Range/Units 11:35 16:52 17:20 Potassium 5.7 H (3.5-5.1) mmol/L Carbon Dioxide (22-30) mmol/L BUN (7-17) mg/dL Creatinine (0.52-1.04) mg/dL Glucose (74-99) mg/dL POC Glucose (mg/dL) 121 H 150 H (75-99) mg/dL Calcium (8.4-10.2) mg/dL 07/06/20 07/07/20 07/07/20 Range/Units 19:53 06:08 06:28 Potassium 5.6 H (3.5-5.1) mmol/L Carbon Dioxide 35 H (22-30) mmol/L BUN 53 H (7-17) mg/dL Creatinine 1.31 H (0.52-1.04) mg/dL Glucose 139 H (74-99) mg/dL POC Glucose (mg/dL) 188 H 129 H (75-99) mg/dL Calcium 8.2 L (8.4-10.2) mg/dL Assessment and Plan Plan: assessment: 1. Acute kidney injury mostly prerenal secondary to cardiorenal syndrome. Creatinine 1.31 today. no evidence of hydronephrosis noted on kidney ultrasound. However left kidney wasn't visualized due to body habitus. accurate bladder scan could not be obtained so Mora catheter was placed. trace proteinuria on UA. 2. Volume overload. 3. Hyperkalemia secondary to acute kidney injury. no evidence of acidosis. Blood sugars stable. 4. Insulin-dependent diabetes mellitus. 5. Morbid obesity. 6. Left foot diabetic wound maintained on antibiotics. plan: Maintain Lasix drip at 10 mL an hour. Add metolazone 5 mg once daily Low-salt diet and 1500 mL fluid restriction. maintain Mora catheter. Repeat potassium level at 5 PM today. tight blood sugar control.
[2020-07-07 11:42] LABS: Glucose,Whole Blood 137 mg/dL (75-99)
[2020-07-07] MEDS: metOLazone 5 MG TAB PO SCH (12:08)
--- NOTE | 2020-07-07 14:28 | P.PN ---
Subjective Progress Note Date: 07/07/20 She remains hyperkalemic today at 5.8, improved from 6.3. Pt diuresing on IV lasix. She is on Unasyn for her diabetic LLE wound, denies chest pain, fever, chills or shortness of breath. 07/07/2020 diuresing well on Lasix drip with 24-hour I&O reflecting a negative fluid balance, decreased weight by 4.5 kg, potassium level improved, down to 5.6. Denies chest pain, palpitations or shortness of breath. Reports less tenderness of left lower extremity. Blood sugars controlled. Objective - Vital Signs Vital signs: Vital Signs Temp 97.5 F L 07/07/20 11:42 Pulse 77 07/07/20 11:42 Resp 18 07/07/20 11:42 BP 114/73 07/07/20 11:42 Pulse Ox 94 L 07/07/20 11:42 Intake & Output 07/06/20 07/07/20 07/07/20 18:59 06:59 18:59 Intake Total 666 914.996 7356 Output Total 900 425 Balance -234 612.494 8806 Weight 158 kg Intake: Intake, IV Titration 286.667 Amount Ampicillin-Sulbactam 3 gm 100 In Sodium Chloride 0.9% 100 ml @ 200 mls/hr IVPB Q8HR [facility] Rx#:[id number] Furosemide 100 mg In 186.667 Sodium Chloride 0.9% 90 ml @ 10 MG/HR 10 mls/hr IV .Q10H [facility] Rx#: [id number] Oral [id number] 7269 Output: Urine 900 425 Other: Voiding Method Indwelling Catheter Indwelling Catheter Indwelling Catheter # Voids 500 # Bowel Movements 2 - Exam Vital signs are stable. General: Sitting up in bed, NAD. HEENT: Head exam unremarkable. Neck is without jugular venous distension. LUNGS: Normal respiratory effort, no wheezes, no rales HEART: Rate and Rhythm are regular. Peripheral pulses 2+ ABDOMEN: soft, obese, nondistended, no organomegaly, positive bowel sounds SKIN: warm and dry. LLE wrapped in gauze, decreased tenderness, positive edema of upper and lower extremities - Labs CBC & Chem 7: 07/04/20 07:29 07/07/20 06:28 Labs: Abnormal Lab Results - Last 24 Hours (Table) 07/06/20 07/06/20 07/06/20 Range/Units 16:52 17:20 19:53 Potassium 5.7 H (3.5-5.1) mmol/L Carbon Dioxide (22-30) mmol/L BUN (7-17) mg/dL Creatinine (0.52-1.04) mg/dL Glucose (74-99) mg/dL POC Glucose (mg/dL) 150 H 188 H (75-99) mg/dL Calcium (8.4-10.2) mg/dL 07/07/20 07/07/20 07/07/20 Range/Units 06:08 06:28 11:41 Potassium 5.6 H (3.5-5.1) mmol/L Carbon Dioxide 35 H (22-30) mmol/L BUN 53 H (7-17) mg/dL Creatinine 1.31 H (0.52-1.04) mg/dL Glucose 139 H (74-99) mg/dL POC Glucose (mg/dL) 129 H 137 H (75-99) mg/dL Calcium 8.2 L (8.4-10.2) mg/dL Assessment and Plan Assessment: 1.(1) Cardiorenal syndrome Current Visit: Yes Status: Acute Code(s): I13.10 - HYP HRT & CHR KDNY DIS W/O HRT FAIL, W STG 1-4/UNSP CHR KDNY SNOMED Code(s): 158786045 (2) Hyperkalemia Current Visit: Yes Status: Acute Code(s): E87.5 - HYPERKALEMIA SNOMED Code(s): 04810115 (3) Diabetic foot ulcer associated with type 2 diabetes mellitus, with fat layer exposed Current Visit: No Status: Acute Code(s): E11.621 - TYPE 2 DIABETES MELLITUS WITH FOOT ULCER; L97.502 - NON-PRS CHRONIC ULCER OTH PRT UNSP FOOT W FAT LAYER EXPOSED SNOMED Code(s): 3122030813642 (4) Diabetic infection of left foot Current Visit: No Status: Acute Code(s): E11.628 - TYPE 2 DIABETES MELLITUS WITH OTHER SKIN COMPLICATIONS; L08.9 - LOCAL INFECTION OF THE SKIN AND SUBCUTANEOUS TISSUE, UNSP SNOMED Code(s): 56254897 (5) Diabetic neuropathy Current Visit: No Status: Acute Code(s): E11.40 - TYPE 2 DIABETES MELLITUS WITH DIABETIC NEUROPATHY, UNSP SNOMED Code(s): 251775430 (6) Non-pressure chronic ulcer of left heel and midfoot with fat layer exposed Current Visit: No Status: Acute Code(s): L97.422 - NON-PRS CHR ULCER OF LEFT HEEL AND MIDFOOT W FAT LAYER EXPOS SNOMED Code(s): 749473404 (7) Peripheral vascular disease Current Visit: No Status: Acute Code(s): I73.9 - PERIPHERAL VASCULAR DISEASE, UNSPECIFIED SNOMED Code(s): 617126910 Plan: Continue on current medication regime ,monitoring and symptomatic treatment. Continues on Lasix drip, metolazone as per nephrology Maintain 1500 MLS fluid restriction, low salt diet. Close monitoring of renal function, electrolytes with repeat labs ordered for a.m. maintain wound care as previously recommended by wound care team, antibiotics. The impression and plan of care has been dictated as directed. : I performed a history and examination of this patient, discussed the same with the dictator. I agree with the dictator's note ,documented as a scribe. Any additional findings or plans will be noted.
[2020-07-07 16:42] LABS: Glucose,Whole Blood 171 mg/dL (75-99)
--- NOTE | 2020-07-07 17:19 | PN ---
PROGRESS NOTE DATE OF SERVICE: 07/07/2020 REASON FOR FOLLOWUP: Left heel wound with underlying osteomyelitis. INTERVAL HISTORY: The patient is currently afebrile. The patient is breathing more comfortably. Denies having any chest pain. Some cough. No nausea. No vomiting. No abdominal pain, no diarrhea. PHYSICAL EXAMINATION: Blood pressure 133/70 with a pulse of 81, temperature 97.6. She is 92% on 1.5 L nasal cannula. General description is a middle-aged female, up in the bed in no distress. RESPIRATORY SYSTEM: Unlabored breathing, clear to auscultation anteriorly. HEART: S1, S2. Regular rate and rhythm. ABDOMEN: Soft, no tenderness. Left heel wound is currently dressed. LABS: BUN of 53, creatinine 1.31. DIAGNOSTIC IMPRESSION AND PLAN: Patient with left heel wound with underlying osteomyelitis on the basis of previous scans as well as cultures were positive for multiple pathogens. Patient is covered with Unasyn. Local wound care to continue per the wound care team and monitor clinical course closely. MMODL / IJN: [id number] /
[2020-07-07 20:39] LABS: Glucose,Whole Blood 195 mg/dL (75-99)
[2020-07-07] MEDS: INSULIN DETEMIR (LEVEMIR) 100 UNIT/ML SYR SQ SCH (20:54)
[2020-07-08] MEDS: FUROSEMIDE 100 MG in SODIUM CHLORIDE 0.9% 90 ML IV SCH ×3 (00:39→20:30)
[2020-07-08 05:49] LABS: Calcium 8.1 mg/dL (8.4-10.2); Magnesium 1.9 mg/dL (1.6-2.3); Potassium 5.4 mmol/L (3.5-5.1)
[2020-07-08 05:57] LABS: Glucose,Whole Blood 151 mg/dL (75-99)
[2020-07-08] MEDS: INSULIN ASPART (NovoLOG) 100 UNIT/ML VIAL SQ SCH ×4 (06:40→20:30)
[2020-07-08] MEDS: metOLazone 5 MG TAB PO SCH (09:12)
[2020-07-08] MEDS: AMPICILLIN-SULBACTAM 3 GM in SODIUM CHLORIDE 0.9% 100 ML IVPB SCH ×2 (09:12→16:25)
[2020-07-08] MEDS: DICYCLOMINE 10 MG CAP PO SCH ×2 (09:12→20:30)
[2020-07-08] MEDS: GABAPENTIN 400 MG CAP PO SCH ×2 (09:12→20:30)
[2020-07-08] MEDS: FLUCONAZOLE 100 MG TAB PO SCH (09:12)
--- NOTE | 2020-07-08 10:25 | P.PN ---
Subjective patient is seen in follow-up for acute kidney injury and hyperkalemia. Renal function a little worse due to diuresis. Potassium level 5.4 this morning. Diuresing well with Lasix drip. denies chest pain or shortness of breath. edema improving. No vomiting or diarrhea. Vital signs are stable. General: The patient appeared well nourished and normally developed. HEENT: Head exam is unremarkable. Neck is without jugular venous distension. LUNGS: Breath sounds decreased. HEART: Rate and Rhythm are regular. ABDOMEN: soft, obese. EXTREMITITES: 2+ edema. Chronic skin changes noted. Objective - Vital Signs Vital signs: Vital Signs Temp 98.2 F 07/08/20 08:59 Pulse 78 07/08/20 08:59 Resp 18 07/08/20 08:59 BP 122/61 07/08/20 08:59 Pulse Ox 91 L 07/08/20 08:59 Intake & Output 07/07/20 07/08/20 07/08/20 18:59 06:59 18:59 Intake Total 1384 316.833 Output Total 1000 850 Balance 384 -533.167 Weight 151 kg Intake: Intake, IV Titration 100 76.833 Amount Furosemide 100 mg In 100 76.833 Sodium Chloride 0.9% 90 ml @ 10 MG/HR 10 mls/hr IV .Q10H [facility] Rx#: [id number] Oral 1284 240 Output: Urine 1000 850 Other: Voiding Method Indwelling Catheter Indwelling Catheter Indwelling Catheter - Labs CBC & Chem 7: 07/04/20 07:29 07/08/20 05:30 Labs: Abnormal Lab Results - Last 24 Hours (Table) 07/07/20 07/07/20 07/07/20 Range/Units 11:41 16:37 17:07 Potassium 5.8 H (3.5-5.1) mmol/L Carbon Dioxide (22-30) mmol/L BUN (7-17) mg/dL Creatinine (0.52-1.04) mg/dL Glucose (74-99) mg/dL POC Glucose (mg/dL) 137 H 171 H (75-99) mg/dL Calcium (8.4-10.2) mg/dL 07/07/20 07/08/20 07/08/20 Range/Units 20:37 05:30 05:55 Potassium 5.4 H (3.5-5.1) mmol/L Carbon Dioxide 36 H (22-30) mmol/L BUN 54 H (7-17) mg/dL Creatinine 1.41 H (0.52-1.04) mg/dL Glucose 149 H (74-99) mg/dL POC Glucose (mg/dL) 195 H 151 H (75-99) mg/dL Calcium 8.1 L (8.4-10.2) mg/dL Assessment and Plan Plan: assessment: 1. Acute kidney injury mostly prerenal secondary to cardiorenal syndrome. Creatinine 1.41 today. no evidence of hydronephrosis noted on kidney ultrasound. However left kidney wasn't visualized due to body habitus. accurate bladder scan could not be obtained so Mora catheter was placed. trace proteinuria on UA. 2. Volume overload. improving with diuresis. Weight trending down. 3. Hyperkalemia secondary to acute kidney injury. no evidence of acidosis. Blood sugars stable. stable. 4. Insulin-dependent diabetes mellitus. 5. Morbid obesity. 6. Left foot diabetic wound maintained on antibiotics. plan: Maintain Lasix drip at 10 mL an hour. maintain metolazone 5 mg once daily Low-salt diet and 1500 mL fluid restriction. maintain Mora catheter. tight blood sugar control. repeat electrolytes in the morning. check chest x-ray tomorrow.
[2020-07-08] MEDS: HYDROcodone/APAP 5-325MG 1 EACH TAB PO PRN ×2 (11:23→17:56)
[2020-07-08 11:32] LABS: Glucose,Whole Blood 142 mg/dL (75-99)
--- NOTE | 2020-07-08 12:53 | P.PN ---
Subjective Progress Note Date: 07/08/20 She remains hyperkalemic today at 5.8, improved from 6.3. Pt diuresing on IV lasix. She is on Unasyn for her diabetic LLE wound, denies chest pain, fever, chills or shortness of breath. 07/07/2020 diuresing well on Lasix drip with 24-hour I&O reflecting a negative fluid balance, decreased weight by 4.5 kg, potassium level improved, down to 5.6. Denies chest pain, palpitations or shortness of breath. Reports less tenderness of left lower extremity. Blood sugars controlled. 07/08/2020 continues diuresing well on Lasix drip with 24-hour I&O reflecting a negative fluid balance, further decreased edema. Creatinine mildly worsened up to 1.41. Potassium continues trending down to 5.4. Denies chest pain, palpitations or increasing shortness of breath. Denies nausea vomiting or diarrhea. No abdominal pain. Blood sugars controlled. Objective - Vital Signs Vital signs: Vital Signs Temp 98.2 F 07/08/20 08:59 Pulse 78 07/08/20 08:59 Resp 18 07/08/20 08:59 BP 122/61 07/08/20 08:59 Pulse Ox 91 L 07/08/20 08:59 Intake & Output 07/07/20 07/08/20 07/08/20 18:59 06:59 18:59 Intake Total 1384 316.833 300 Output Total 1000 850 Balance 384 -533.167 300 Weight 151 kg Intake: Intake, IV Titration 100 76.833 100 Amount Furosemide 100 mg In 100 76.833 100 Sodium Chloride 0.9% 90 ml @ 10 MG/HR 10 mls/hr IV .Q10H [facility] Rx#: [id number] Oral 1284 240 200 Output: Urine 1000 850 Other: Voiding Method Indwelling Catheter Indwelling Catheter Indwelling Catheter - Exam Vital signs are stable. General: Sitting up in bed, NAD. HEENT: Head exam unremarkable. Neck supple, no jugular venous distension. LUNGS: Normal respiratory effort, no rhonchi, crackles, wheezes. HEART: Rate and Rhythm are regular. Peripheral pulses 2+ ABDOMEN: soft, obese, nondistended, no organomegaly, positive bowel sounds SKIN: warm and dry. LLE wrapped in gauze, decreased tenderness, decreasing edema of upper and lower extremities - Labs CBC & Chem 7: 07/04/20 07:29 07/08/20 05:30 Labs: Abnormal Lab Results - Last 24 Hours (Table) 07/07/20 07/07/20 07/07/20 Range/Units 16:37 17:07 20:37 Potassium 5.8 H (3.5-5.1) mmol/L Carbon Dioxide (22-30) mmol/L BUN (7-17) mg/dL Creatinine (0.52-1.04) mg/dL Glucose (74-99) mg/dL POC Glucose (mg/dL) 171 H 195 H (75-99) mg/dL Calcium (8.4-10.2) mg/dL 07/08/20 07/08/20 07/08/20 Range/Units 05:30 05:55 11:31 Potassium 5.4 H (3.5-5.1) mmol/L Carbon Dioxide 36 H (22-30) mmol/L BUN 54 H (7-17) mg/dL Creatinine 1.41 H (0.52-1.04) mg/dL Glucose 149 H (74-99) mg/dL POC Glucose (mg/dL) 151 H 142 H (75-99) mg/dL Calcium 8.1 L (8.4-10.2) mg/dL Assessment and Plan Assessment: 1.(1) Cardiorenal syndrome Current Visit: Yes Status: Acute Code(s): I13.10 - HYP HRT & CHR KDNY DIS W/O HRT FAIL, W STG 1-4/UNSP CHR KDNY SNOMED Code(s): 668212808 (2) Hyperkalemia Current Visit: Yes Status: Acute Code(s): E87.5 - HYPERKALEMIA SNOMED Code(s): 01647270 (3) Diabetic foot ulcer associated with type 2 diabetes mellitus, with fat layer exposed Current Visit: No Status: Acute Code(s): E11.621 - TYPE 2 DIABETES MELLITUS WITH FOOT ULCER; L97.502 - NON-PRS CHRONIC ULCER OTH PRT UNSP FOOT W FAT LAYER EXPOSED SNOMED Code(s): 2822645690526 (4) Diabetic infection of left foot heel with underlying osteomyelitis Current Visit: No Status: Acute Code(s): E11.628 - TYPE 2 DIABETES MELLITUS WITH OTHER SKIN COMPLICATIONS; L08.9 - LOCAL INFECTION OF THE SKIN AND SUBCUTANEOUS TISSUE, UNSP SNOMED Code(s): 88234870 (5) Diabetic neuropathy Current Visit: No Status: Acute Code(s): E11.40 - TYPE 2 DIABETES MELLITUS WITH DIABETIC NEUROPATHY, UNSP SNOMED Code(s): 682858506 (6) Non-pressure chronic ulcer of left heel and midfoot with fat layer exposed Current Visit: No Status: Acute Code(s): L97.422 - NON-PRS CHR ULCER OF LEFT HEEL AND MIDFOOT W FAT LAYER EXPOS SNOMED Code(s): 514455117 (7) Peripheral vascular disease Current Visit: No Status: Acute Code(s): I73.9 - PERIPHERAL VASCULAR DISEASE, UNSPECIFIED SNOMED Code(s): 698181854 Plan: Continue on current medication regime ,monitoring and symptomatic treatment. Diuresing -Lasix drip, metolazone as per nephrology. Continue 1500 MLS fluid restriction, low salt diet. Close monitoring of renal function, electrolytes with repeat labs ordered for a.m. Wound care as per wound care team. antibiotics as per ID. Discharge planning in progress for return to [facility] subacute rehab to complete antibiotic therapy, pending completion of IV drip diuresing , clearance as per nephrology. The impression and plan of care has been dictated as directed. : I performed a history and examination of this patient, discussed the same with the dictator. I agree with the dictator's note ,documented as a scribe. Any additional findings or plans will be noted.
[2020-07-08 16:03] VITALS: RESP 18
[2020-07-08 16:35] LABS: Glucose,Whole Blood 162 mg/dL (75-99)
[2020-07-08 19:55] LABS: Glucose,Whole Blood 191 mg/dL (75-99)
[2020-07-08] MEDS: INSULIN DETEMIR (LEVEMIR) 100 UNIT/ML SYR SQ SCH (20:31)
--- NOTE | 2020-07-08 22:50 | PN ---
PROGRESS NOTE DATE OF SERVICE: 07/08/2020 REASON FOR FOLLOWUP: Left lower extremity wound and cellulitis along with osteomyelitis. INTERVAL HISTORY: The patient is currently afebrile. The patient is breathing more comfortably. The patient denies having any chest pain. Some shortness of breath and cough, not bringing up up any sputum. No nausea. No vomiting. No abdominal pain or pain to the left heel. PHYSICAL EXAMINATION: Blood pressure 122/66, pulse 74, temperature 97.7. She is 99% on 1.5 L nasal cannula. General description is a middle-aged female up in the bed in no distress. RESPIRATORY SYSTEM: Unlabored breathing with decreased breath sounds at the base. No wheeze. HEART: S1, S2. Regular rate and rhythm. ABDOMEN: Soft. No tenderness. Left leg wound is currently dressed. No obvious drainage on the dressing. LABS: BUN of 54, creatinine is 1.41. DIAGNOSTIC IMPRESSION AND PLAN: Patient with left lower extremity wound, cellulitis and underlying osteomyelitis, currently covered with the Unasyn on the basis of previous cultures; to continue, and monitor clinical course closely. Local care to continue per wound care team. MMODL / IJN: [id number] /
[2020-07-09] MEDS: AMPICILLIN-SULBACTAM 3 GM in SODIUM CHLORIDE 0.9% 100 ML IVPB SCH ×3 (00:40→17:29)
[2020-07-09] MEDS: FUROSEMIDE 100 MG in SODIUM CHLORIDE 0.9% 90 ML IV SCH ×2 (06:00→21:00)
[2020-07-09 06:16] LABS: Glucose,Whole Blood 179 mg/dL (75-99)
[2020-07-09] MEDS: INSULIN ASPART (NovoLOG) 100 UNIT/ML VIAL SQ SCH ×4 (06:52→23:32)
--- NOTE | 2020-07-09 09:04 | XR ---
EXAMINATION TYPE: XR chest 1V portable DATE OF EXAM: 07/09/2020 COMPARISON: 07/03/2020 INDICATION: Short of breath TECHNIQUE: Single frontal view of the chest is obtained. FINDINGS: The heart size is mildly prominent. The pulmonary vasculature is normal. Mild bibasilar infiltrates are present IMPRESSION: 1. Mild bibasilar infiltrates
[2020-07-09 09:34] LABS: Calcium 8.1 mg/dL (8.4-10.2); Magnesium 1.9 mg/dL (1.6-2.3)
[2020-07-09] MEDS: GABAPENTIN 400 MG CAP PO SCH ×2 (10:00→23:29)
[2020-07-09] MEDS: FLUCONAZOLE 100 MG TAB PO SCH (10:00)
[2020-07-09] MEDS: metOLazone 5 MG TAB PO SCH (10:00)
[2020-07-09] MEDS: HYDROcodone/APAP 5-325MG 1 EACH TAB PO PRN ×3 (10:00→23:29)
[2020-07-09] MEDS: DICYCLOMINE 10 MG CAP PO SCH ×2 (10:00→23:31)
--- NOTE | 2020-07-09 10:52 | P.PN ---
Subjective patient is seen in follow-up for acute kidney injury and hyperkalemia. Renal function fairly stable. Potassium level 5.0 this morning. Diuresing well with Lasix drip - urine output near 3 L in the last 24 hours. denies chest pain or shortness of breath. edema improving. No vomiting or diarrhea. Vital signs are stable. General: The patient appeared well nourished and normally developed. HEENT: Head exam is unremarkable. Neck is without jugular venous distension. LUNGS: Breath sounds decreased. HEART: Rate and Rhythm are regular. ABDOMEN: soft, obese. EXTREMITITES: 2+ edema. Chronic skin changes noted. Objective - Vital Signs Vital signs: Vital Signs Temp 97.4 F L 07/09/20 08:26 Pulse 73 07/09/20 08:26 Resp 18 07/09/20 08:26 BP 111/63 07/09/20 08:26 Pulse Ox 95 07/09/20 08:26 Intake & Output 07/08/20 07/09/20 07/09/20 18:59 06:59 18:59 Intake Total 1400 737.667 Output Total 1669 875 375 Balance -269 -137.333 -375 Weight 158 kg Intake: Intake, IV Titration 100 187.667 Amount Furosemide 100 mg In 100 187.667 Sodium Chloride 0.9% 90 ml @ 15 MG/HR 15 mls/hr IV .Q6H40M [facility] Rx#: [id number] Oral 1300 550 Output: Urine 1669 875 375 Other: Voiding Method Indwelling Catheter Indwelling Catheter Indwelling Catheter - Labs CBC & Chem 7: 07/04/20 07:29 07/09/20 09:05 Labs: Abnormal Lab Results - Last 24 Hours (Table) 07/08/20 07/08/20 07/08/20 Range/Units 11:31 16:34 19:52 Carbon Dioxide (22-30) mmol/L BUN (7-17) mg/dL Creatinine (0.52-1.04) mg/dL Glucose (74-99) mg/dL POC Glucose (mg/dL) 142 H 162 H 191 H (75-99) mg/dL Calcium (8.4-10.2) mg/dL 07/09/20 07/09/20 Range/Units 06:13 09:05 Carbon Dioxide 36 H (22-30) mmol/L BUN 55 H (7-17) mg/dL Creatinine 1.44 H (0.52-1.04) mg/dL Glucose 195 H (74-99) mg/dL POC Glucose (mg/dL) 179 H (75-99) mg/dL Calcium 8.1 L (8.4-10.2) mg/dL Assessment and Plan Plan: assessment: 1. Acute kidney injury mostly prerenal secondary to cardiorenal syndrome. Creatinine 1.44 today. no evidence of hydronephrosis noted on kidney ultrasound. However left kidney wasn't visualized due to body habitus. accurate bladder scan could not be obtained so Mora catheter was placed. trace proteinuria on UA. 2. Volume overload. improving with diuresis. 3. Hyperkalemia secondary to acute kidney injury. no evidence of acidosis. Blood sugars stable. improving. 4. Insulin-dependent diabetes mellitus. 5. Morbid obesity. 6. Left foot diabetic wound maintained on antibiotics. plan: increase Lasix drip to 15 mL an hour. maintain metolazone 5 mg once daily Low-salt diet and 1500 mL fluid restriction. maintain Mora catheter. tight blood sugar control. repeat electrolytes in the morning.
[2020-07-09 11:40] LABS: Glucose,Whole Blood 157 mg/dL (75-99)
[2020-07-09 16:41] LABS: Glucose,Whole Blood 236 mg/dL (75-99)
[2020-07-09 20:01] LABS: Glucose,Whole Blood 274 mg/dL (75-99)
--- NOTE | 2020-07-09 22:48 | P.PN ---
Subjective Progress Note Date: 07/09/20 Principal diagnosis: hyperkalemia She is responding well to lasix drip, down 3 L last 24 hours, her potassium has normalized. She is on Unasyn for her diabetic LLE wound, denies chest pain, fever, chills or shortness of breath. She does complain of some sinus pressure today. Objective - Vital Signs Vital signs: Vital Signs Temp 97.8 F 07/09/20 16:30 Pulse 76 07/09/20 16:30 Resp 18 07/09/20 16:30 BP 149/87 07/09/20 16:30 Pulse Ox 95 07/09/20 16:30 Intake & Output 07/09/20 07/09/20 07/10/20 06:59 18:59 06:59 Intake Total 737.667 180 Output Total 875 1300 Balance -137.333 -1120 Weight 158 kg Intake: Intake, IV Titration 187.667 Amount Furosemide 100 mg In 187.667 Sodium Chloride 0.9% 90 ml @ 15 MG/HR 15 mls/hr IV .Q6H40M [facility] Rx#: [id number] Oral 550 180 Output: Urine 875 1300 Other: Voiding Method Indwelling Catheter Indwelling Catheter # Bowel Movements 1 - Exam General: well nourished, well developed, NAD. Vitals reviewed Lungs: normal respiratory effort, no wheezes or rales CV: Regular rate and rhythm, no murmur. Peripheral pulses 2+ Abdomen: soft, nondistended, no organomegaly Skin: warm and dry. LLE wrapped in gauze - Labs CBC & Chem 7: 07/04/20 07:29 07/09/20 09:05 Labs: Abnormal Lab Results - Last 24 Hours (Table) 07/09/20 07/09/20 07/09/20 Range/Units 06:13 09:05 11:39 Carbon Dioxide 36 H (22-30) mmol/L BUN 55 H (7-17) mg/dL Creatinine 1.44 H (0.52-1.04) mg/dL Glucose 195 H (74-99) mg/dL POC Glucose (mg/dL) 179 H 157 H (75-99) mg/dL Calcium 8.1 L (8.4-10.2) mg/dL 07/09/20 07/09/20 Range/Units 16:39 20:00 Carbon Dioxide (22-30) mmol/L BUN (7-17) mg/dL Creatinine (0.52-1.04) mg/dL Glucose (74-99) mg/dL POC Glucose (mg/dL) 236 H 274 H (75-99) mg/dL Calcium (8.4-10.2) mg/dL Assessment and Plan (1) Cardiorenal syndrome Current Visit: Yes Status: Acute Code(s): I13.10 - HYP HRT & CHR KDNY DIS W/O HRT FAIL, W STG 1-4/UNSP CHR KDNY SNOMED Code(s): 333201578 (2) Hyperkalemia Current Visit: Yes Status: Acute Code(s): E87.5 - HYPERKALEMIA SNOMED Code(s): 24956409 (3) Diabetic foot ulcer associated with type 2 diabetes mellitus, with fat layer exposed Current Visit: No Status: Acute Code(s): E11.621 - TYPE 2 DIABETES MELLITUS WITH FOOT ULCER; L97.502 - NON-PRS CHRONIC ULCER OTH PRT UNSP FOOT W FAT LAYER EXPOSED SNOMED Code(s): 5106643400941 (4) Diabetic infection of left foot Current Visit: No Status: Acute Code(s): E11.628 - TYPE 2 DIABETES MELLITUS WITH OTHER SKIN COMPLICATIONS; L08.9 - LOCAL INFECTION OF THE SKIN AND SUBCUTANEOUS TISSUE, UNSP SNOMED Code(s): 74885697 (5) Diabetic neuropathy Current Visit: No Status: Acute Code(s): E11.40 - TYPE 2 DIABETES MELLITUS WITH DIABETIC NEUROPATHY, UNSP SNOMED Code(s): 149706543 (6) Non-pressure chronic ulcer of left heel and midfoot with fat layer exposed Current Visit: No Status: Acute Code(s): L97.422 - NON-PRS CHR ULCER OF LEFT HEEL AND MIDFOOT W FAT LAYER EXPOS SNOMED Code(s): 545793583 (7) Peripheral vascular disease Current Visit: No Status: Acute Code(s): I73.9 - PERIPHERAL VASCULAR DISEASE, UNSPECIFIED SNOMED Code(s): 104486757 Plan: Continue with current medications and treatment, continue IV antibiotics and diuresis with lasix. Potassium normalized, continue with drip and anticipate discharge tomorrow. Add claritin and mucinex for sinus congestion.
--- NOTE | 2020-07-09 22:54 | PN ---
PROGRESS NOTE DATE OF SERVICE: 07/09/2020 REASON FOR FOLLOWUP: Left heel wound and osteomyelitis. INTERVAL HISTORY: The patient is currently afebrile. The patient is complaining of shortness of breath and she is also having a cough and bringing up some sputum. No chest pain. No nausea. No vomiting. No abdominal pain or pain to the left heel wound area. PHYSICAL EXAMINATION: Blood pressure is 149/87 with a pulse of 76, temperature 97.8. She is 95% on 1.5 L nasal cannula. General description is a middle-aged female lying in bed in no distress. RESPIRATORY SYSTEM: Unlabored breathing with decreased intensity of breath sounds. No wheeze. HEART: S1, S2. Regular rate and rhythm. ABDOMEN: Soft. No tenderness. Left heel is currently dressed. No obvious drainage on the dressing. LABS: BUN of 55, creatinine 1.44. DIAGNOSTIC IMPRESSION AND PLAN: Patient with a left heel chronic nonhealing wound with concern for underlying osteomyelitis. Cultures have been positive for multiple pathogens , including MSSA, Streptococcus, for which the patient is currently covered with Unasyn 3 grams q.6 hours; to continue. Local care to continue per Surgery and monitor her clinical course closely. MMODL / IJN: [id number] /
[2020-07-09] MEDS: guaiFENesin 600 MG TABLET.ER PO SCH (23:32)
[2020-07-09] MEDS: INSULIN DETEMIR (LEVEMIR) 100 UNIT/ML SYR SQ SCH (23:33)
[2020-07-09] MEDS: LORATADINE 10 MG TAB PO SCH (23:36)
[2020-07-10] MEDS: AMPICILLIN-SULBACTAM 3 GM in SODIUM CHLORIDE 0.9% 100 ML IVPB SCH ×2 (00:30→09:03)
[2020-07-10] MEDS: FUROSEMIDE 100 MG in SODIUM CHLORIDE 0.9% 90 ML IV SCH ×2 (04:05→10:25)
[2020-07-10 06:07] LABS: Glucose,Whole Blood 177 mg/dL (75-99)
[2020-07-10] MEDS: INSULIN ASPART (NovoLOG) 100 UNIT/ML VIAL SQ SCH ×2 (06:49→13:09)
[2020-07-10 07:59] LABS: Calcium 8.3 mg/dL (8.4-10.2); Magnesium 1.8 mg/dL (1.6-2.3); Potassium 5.2 mmol/L (3.5-5.1)
[2020-07-10] MEDS: LORATADINE 10 MG TAB PO SCH (08:58)
[2020-07-10] MEDS: guaiFENesin 600 MG TABLET.ER PO SCH (08:58)
[2020-07-10] MEDS: HYDROcodone/APAP 5-325MG 1 EACH TAB PO PRN (08:59)
[2020-07-10] MEDS: GABAPENTIN 400 MG CAP PO SCH (09:02)
[2020-07-10] MEDS: DICYCLOMINE 10 MG CAP PO SCH (09:02)
[2020-07-10] MEDS: FLUCONAZOLE 100 MG TAB PO SCH (09:06)
[2020-07-10] MEDS: metOLazone 5 MG TAB PO SCH (09:11)
--- NOTE | 2020-07-10 10:43 | P.PN ---
Subjective patient is seen in follow-up for acute kidney injury and hyperkalemia. Renal function fairly stable. Potassium level 5.2 this morning. Diuresing well with Lasix drip - urine output over 2 L since 4 PM yesterday. denies chest pain or shortness of breath. edema improving. No vomiting or diarrhea. Vital signs are stable. General: The patient appeared well nourished and normally developed. HEENT: Head exam is unremarkable. Neck is without jugular venous distension. LUNGS: Breath sounds decreased. HEART: Rate and Rhythm are regular. ABDOMEN: soft, obese. EXTREMITITES: 2+ edema. Chronic skin changes noted. Objective - Vital Signs Vital signs: Vital Signs Temp 97.6 F 07/10/20 08:20 Pulse 77 07/10/20 08:20 Resp 18 07/10/20 08:20 BP 114/64 07/10/20 08:20 Pulse Ox 96 07/10/20 08:20 Intake & Output 07/09/20 07/10/20 07/10/20 18:59 06:59 18:59 Intake Total 280 90 Output Total 1300 1400 Balance -1020 -1310 Weight 158.5 kg Intake: Intake, IV Titration 100 90 Amount Furosemide 100 mg In 100 90 Sodium Chloride 0.9% 90 ml @ 15 MG/HR 15 mls/hr IV .Q6H40M [facility] Rx#: [id number] Oral 180 Output: Urine 1300 1400 Other: Voiding Method Indwelling Catheter Indwelling Catheter # Bowel Movements 1 1 - Labs CBC & Chem 7: 07/04/20 07:29 07/10/20 07:16 Labs: Abnormal Lab Results - Last 24 Hours (Table) 07/09/20 07/09/20 07/09/20 Range/Units 11:39 16:39 20:00 Sodium (137-145) mmol/L Potassium (3.5-5.1) mmol/L Carbon Dioxide (22-30) mmol/L BUN (7-17) mg/dL Creatinine (0.52-1.04) mg/dL Glucose (74-99) mg/dL POC Glucose (mg/dL) 157 H 236 H 274 H (75-99) mg/dL Calcium (8.4-10.2) mg/dL 07/10/20 07/10/20 Range/Units 06:06 07:16 Sodium 136 L (137-145) mmol/L Potassium 5.2 H (3.5-5.1) mmol/L Carbon Dioxide 35 H (22-30) mmol/L BUN 56 H (7-17) mg/dL Creatinine 1.47 H (0.52-1.04) mg/dL Glucose 147 H (74-99) mg/dL POC Glucose (mg/dL) 177 H (75-99) mg/dL Calcium 8.3 L (8.4-10.2) mg/dL Assessment and Plan Plan: assessment: 1. Acute kidney injury mostly prerenal secondary to cardiorenal syndrome. Creatinine 1.47 today. no evidence of hydronephrosis noted on kidney ultrasound. However left kidney wasn't visualized due to body habitus. accurate bladder scan could not be obtained so Mora catheter was placed. trace proteinuria on UA. 2. Volume overload. improving with diuresis. 3. Hyperkalemia secondary to acute kidney injury. no evidence of acidosis. Blood sugars stable. 4. Insulin-dependent diabetes mellitus. 5. Morbid obesity. 6. Left foot diabetic wound maintained on antibiotics. plan: maintain Lasix drip for now - transition to Demadex 40 mg orally twice daily upon discharge. maintain metolazone 5 mg once daily Low-salt diet and 1500 mL fluid restriction. maintain Mora catheter. tight blood sugar control. repeat electrolytes in the morning. follow up outpatient in 1 week. repeat BMP and magnesium level in 2-3 days postdischarge.
[2020-07-10 11:46] LABS: Glucose,Whole Blood 142 mg/dL (75-99)
--- NOTE | 2020-07-10 12:08 | P.DS ---
Providers Date of admission: 07/03/20 20:58 Expected date of discharge: 07/10/20 Attending physician: Marcos Shi MD Consults: 07/03/20 20:58 Consult Physician Routine Consulting Provider: Diane Holm Consult Reason/Comments: arf Do you want consulting provider notified?: Yes 07/04/20 14:12 Consult Physician Routine Consulting Provider: Anita Sharma Consult Reason/Comments: foot infection Do you want consulting provider notified?: Yes Primary care physician: Rosemarie Pathak - Discharge Diagnosis(es) (1) Cardiorenal syndrome Current Visit: Yes Status: Acute (2) Hyperkalemia Current Visit: Yes Status: Acute (3) Diabetic foot ulcer associated with type 2 diabetes mellitus, with fat layer exposed Current Visit: No Status: Acute (4) Diabetic infection of left foot Current Visit: No Status: Acute (5) Diabetic neuropathy Current Visit: No Status: Acute (6) Non-pressure chronic ulcer of left heel and midfoot with fat layer exposed Current Visit: No Status: Acute (7) Peripheral vascular disease Current Visit: No Status: Acute Hospital Course: Wiley Gonzalez is a 60-year-old female to the ER for evaluation regarding not feeling well. Patient was sent in for fluid overload. Patient has significant swelling of lower extremities difficulty breathing and overall edema. Patient herself denies any complaints was sent to ER by the [facility] for evaluation. On reevaluation patient does admit to some shortness of breath and some pain in both legs. In the ED agent was found to be in acute renal failure with critical hyperkalemia along with chronic nonhealing wound of left posterior like/osteomyelitis of left ankle Patient was diagnosed with left posterior leg osteomyelitis on her last admission with a local wound culture positive for MSSA, strep and anaerobes and patient was discharged on IV Unasyn 3 g every 8 hours at the shelter. She was admitted to medicine and seen by ID and Nephrology. Her hyperkalemia was felt to be secondary to cardiorenal syndrome and she was started on IV lasix. Pt did diurese well with negative fluid balance. She was maintained on lasix drip with resolution of hyperkalemia. Pt was maintained on unasyn for her LLE osteomyelitis and seen by wound team. Her wound did continue to heal during her hospitalization. Pt noted some sinus congestion for which she was given claritin. She is recommended by Nephrology to continue torsemide 40 mg bid on discharge and have BMP next repeated in 3 days. She will follow up with her PCP as well upon discharge. Discharge Exam: General: well nourished, well developed, NAD. Vitals reviewed HENT: normocephalic, mucus membranes moist Lungs: normal respiratory effort, no wheezes or rales CV: Regular rate and rhythm, no murmur. Peripheral pulses 2+. 1+ edema BLE and BUE Abdomen: soft, nondistended, no organomegaly Skin: warm and dry. LLE wrapped in gauze, no drainage Neuro: A&Ox3, normal mood and affect Patient Condition at Discharge: Fair Plan - Discharge Summary Discharge Rx Participant: No New Discharge Prescriptions: New Loratadine [Claritin] 10 mg PO DAILY #30 tab Ampicillin-Sulbactam [Unasyn] 3 gm IVPB Q8HR vial metOLazone [Zaroxolyn] 5 mg PO DAILY #30 tab Torsemide [Demadex] 40 mg PO BID #60 tablet Continue Dicyclomine [Bentyl] 10 mg PO BID@0900,2100 Ipratropium-Albuterol Nebulize [Duoneb 0.5 mg-3 mg/3 ml Soln] 3 ml INHALATION RT-TID PRN ml PRN Reason: Shortness Of Breath Or Wheezing Pro-Stat Sugar Free Awc Suppl 30 ml PO DAILY@0900 Fluconazole [Diflucan] 200 mg PO DAILY@0900 Gabapentin [Neurontin] 400 mg PO BID@0900,2100 Insulin Glargine,Hum.rec.anlog [Freedomaglmaura Kaba U-100] 30 unit SQ HS@2100 INSULIN LISPRO (HumaLOG) [humaLOG] See Protocol SQ ACHS HYDROcodone/APAP 5-325MG [[place] 5-325] 1 tab PO Q6H PRN PRN Reason: Pain Discontinued Ampicillin Sodium/Sulbactam Na [Ampicillin-Sulbactam 1.5 gm Vl] 1.5 gm IV Q8H Furosemide [Lasix] 40 mg PO DAILY@0600 Discharge Medication List Dicyclomine [Bentyl] 10 mg PO BID@0900,2100 06/10/20 [History] Ipratropium-Albuterol Nebulize [Duoneb 0.5 mg-3 mg/3 ml Soln] 3 ml INHALATION RT-TID PRN ml 06/15/20 [Rx] Fluconazole [Diflucan] 200 mg PO DAILY@89907/03/20 [History] Gabapentin [Neurontin] 400 mg PO BID@899,209907/03/20 [History] HYDROcodone/APAP 5-325MG [[place] 5-325] 1 tab PO Q6H PRN 07/03/20 [History] INSULIN LISPRO (HumaLOG) [humaLOG] See Protocol SQ ACHS 07/03/20 [History] Insulin Glargine,Hum.rec.anlog [Basaglar Kwikpen U-100] 30 unit SQ HS@209907/03/20 [History] Pro-Stat Sugar Free Awc Suppl 30 ml PO DAILY@89907/03/20 [History] Ampicillin-Sulbactam [Unasyn] 3 gm IVPB Q8HR vial 07/10/20 [Rx] Loratadine [Claritin] 10 mg PO DAILY #30 tab 07/10/20 [Rx] Torsemide [Demadex] 40 mg PO BID #60 tablet 07/10/20 [Rx] metOLazone [Zaroxolyn] 5 mg PO DAILY #30 tab 07/10/20 [Rx] Follow up Appointment(s)/Referral(s): Rosemarie Pathak DO [Primary Care Provider] - 1-2 days Activity/Diet/Wound Care/Special Instructions: [facility] Discharge Disposition: TRANSFER TO SNF/ECF
[2020-07-10 12:13] VITALS: BP 129/74; PULSE 71; TEMP 97.7
--- NOTE | 2020-07-10 14:25 | PN ---
PROGRESS NOTE DATE OF SERVICE: 07/10/2020 REASON FOR FOLLOWUP: Left heel wound and osteomyelitis noted. The patient is currently afebrile, patient is breathing comfortably. Denies having any chest pain. Some cough. No nausea. No abdominal pain. No pain to the left heel wound area. PHYSICAL EXAMINATION: Blood pressure 129/64 with a pulse of 81, temperature is 97.3, she is 97% on 2 L nasal cannula. General description is a middle-aged female up in the bed in no distress. RESPIRATORY SYSTEM: Unlabored breathing, clear to auscultation anteriorly. HEART: S1, S2. Regular rate and rhythm. ABDOMEN: Soft, no tenderness. The left heel wound is no drainage on the dressing. LABS: Creatinine is 1.47. DIAGNOSTIC IMPRESSION AND PLAN: Patient with left heel pressure ulcer with underlying osteomyelitis. Fever and culture positive for MSSA and Staphyloccus agalactiae: Currently, those were negative. Antibiotic was switched to Rocephin 2 g daily for another 2-3 weeks. Local wouind care per Surgery Wound Care Team and close outpatient followup. MMODL / IJN: [id number] /
[2020-07-10 15:20] VITALS: BMI 56.4
--- NOTE | 2020-07-12 10:08 | CDI ---
Documentation Clarification Form Date: 07/12/20 From: Melodie Ambrose CCS Phone: If you have a question about this query, please contact Zina Adams, Electrical Installation Supervisor at [phone] between 8am and 5pm. Admit Date: 07/03/20 Discharge Date:07/10/20 Patient Name: Wiley Jacob Visit Number: [id number] ATTENTION: The Clinical Documentation Specialists (CDI) and [facility] Coding Staff appreciate your assistance in clarifying documentation. Please respond to the clarification below the line at the bottom and electronically sign. The CDI & [facility] Coding staff will review the response and follow-up if needed. Please note: Queries are made part of the Legal Health Record. If you have any questions, please contact the author of this message via ITS. Dear Dr. Shi, Cardiorenal Syndrome is documented in the H&P, Consult, PNs, DS. History/Risk Factors: CHF, HTN, DM, Morbid obesity BMI 56, Osteomyelitis, CHA Clinical Indicators: Cardiorenal syndrome Current BUN: 55, 56, 52 CR: 1.16, 1.13, 1.22 GFR: 52, 54, 49 Renal Ultrasound: Exam is limited due to patient body habitus, no evident right- sided hydronephrosis. Consult: Jones- left kidney wasn't visualized due to body habitus. accurate bladder scan could not be obtained so Mora catheter was placed In order to capture the severity of condition, please clarify the stage of the CKD, if known: CKD Stage 1 (GFR > 90) CKD Stage 2 (GFR 60-89) CKD [id number] ModerateCKD(GFR = 45-59 mL/min) CKD [id number] ModerateCKD(GFR = 30-44 mL/min) CKD Stage 4 (GFR 15-29) CKD Stage 5 (GFR <15) ESRD Other, please specify Unable to determine CKD [id number] ModerateCKD(GFR = 45-59 mL/min) MTDD
--- NOTE | 2020-07-12 10:24 | CDI ---
Documentation Clarification Form Date: 07/12/20 From: Melodie Ambrose CCS Phone: If you have a question about this query, please contact Zina Adams, Signaling Design Engineer at [phone] between 8am and 5pm. Admit Date: 07/03/20 Discharge Date:07/10/20 Patient Name: Wiley Gonzalez Visit Number: [id number] ATTENTION: The Clinical Documentation Specialists (CDI) and [facility] Coding Staff appreciate your assistance in clarifying documentation. Please respond to the clarification below the line at the bottom and electronically sign. The CDI & [facility] Coding staff will review the response and follow-up if needed. Please note: Queries are made part of the Legal Health Record. If you have any questions, please contact the author of this message via ITS. Dear Dr. Shi, CHF is documented in the ED note. Patient is admitted with CHA secondary to cardiorenal syndrome, fluid overload and elevated potassium. History/Risk Factors: HTN, DM, CHA, Cardiorenal syndrome, Osteomyelitis, Morbid obesity BMI 56 Clinical Indicators: Fluid overload VS/Pulse OX: BP 128/105, RR 16, MN 76, O2 Sat 94 BNP: 3470 Chest X Ray: There is evidence for new mild congestive heart failure with pleural fluid compared to old exam. Treatment: Lasix 40 mg IV Q12HR In your professional opinion, can you please clarify the acuity and type of CHF if known? Systolic Heart Failure: Acute Chronic Acute on Chronic Diastolic Heart Failure: Acute Chronic Acute on Chronic Systolic & Diastolic Heart Failure: Acute Chronic Acute on Chronic Heart Failure Unable to Determine Other, please specify Acute on Chronic diastolic CHF MTDD
== END 2020-07-10 15:36 | DRG 291 ==
LOC: EC 19:00 → 3SCARD 20:58
PROVIDERS: ADMIT Family Medicine; ATTEND Family Medicine
DX: I13.0 Hypertensive heart and chronic kidney disease with heart failure and stage 1 through stage 4 chronic kidney disease, or unspecified chronic kidney disease (principal); I50.33 Acute on chronic diastolic (congestive) heart failure; N17.9 Acute kidney failure, unspecified; Z68.43 Body mass index [BMI] 50.0-59.9, adult; L97.326 Non-pressure chronic ulcer of left ankle with bone involvement without evidence of necrosis; L97.422 Non-pressure chronic ulcer of left heel and midfoot with fat layer exposed; L03.116 Cellulitis of left lower limb; M86.172 Other acute osteomyelitis, left ankle and foot; E11.40 Type 2 diabetes mellitus with diabetic neuropathy, unspecified; E11.621 Type 2 diabetes mellitus with foot ulcer; E11.628 Type 2 diabetes mellitus with other skin complications; E11.69 Type 2 diabetes mellitus with other specified complication; E11.622 Type 2 diabetes mellitus with other skin ulcer; E11.51 Type 2 diabetes mellitus with diabetic peripheral angiopathy without gangrene; E11.22 Type 2 diabetes mellitus with diabetic chronic kidney disease; N18.30 Chronic kidney disease, stage 3 unspecified; E66.01 Morbid (severe) obesity due to excess calories; Z79.4 Long term (current) use of insulin; M79.7 Fibromyalgia; J44.9 Chronic obstructive pulmonary disease, unspecified; K58.9 Irritable bowel syndrome, unspecified; F17.200 Nicotine dependence, unspecified, uncomplicated; E87.5 Hyperkalemia; R09.81 Nasal congestion; B95.61 Methicillin susceptible Staphylococcus aureus infection as the cause of diseases classified elsewhere; T50.1X5A Adverse effect of loop [high-ceiling] diuretics, initial encounter; Z79.899 Other long term (current) drug therapy; Z91.048 Other nonmedicinal substance allergy status; Z96.653 Presence of artificial knee joint, bilateral; Z98.890 Other specified postprocedural states; Z90.710 Acquired absence of both cervix and uterus; Z91.040 Latex allergy status; Z88.5 Allergy status to narcotic agent; Z88.8 Allergy status to other drugs, medicaments and biological substances; Z83.3 Family history of diabetes mellitus; Z82.49 Family history of ischemic heart disease and other diseases of the circulatory system
CPT/HCPCS: 71045; 71046; 76770; 80048; 80053; 81001; 82550; 83735; 83880; 84100; 84132; 84484; 85025; 85610; 85730; 93005; 94640; 96374; 96375; 99285